=== PATIENT | female | born 1955 | race African-American/Black ===

== ENCOUNTER 2018-03-20 18:16 | Inpatient (IN) ==
--- NOTE | 2018-03-20 18:46 | Emergency Department Note ---
Disposition Clinical Impression: Acute cholecystitis, Thrombocytopenia Hypertension Qualifiers: Hypertension type: unspecified Qualified Code(s): I10 - Essential (primary) hypertension Disposition: Admitted As Inpatient Condition: Good Referrals: Zion Morgan [Primary Care Provider] - Gabrielle Mcdaniel [Family Provider] - Forms: ED Satisfaction Letter, Work/School Release Time of Disposition: 19:35 Abdominal Pain HPI - General Chief Complaint: ED Abdominal Pain Stated Complaint: Infected gallbladder Time Seen by Provider: 03/20/18 18:24 Source: patient, family Mode of arrival: wheelchair Limitations: no limitations Nursing Notes Reviewed: Yes Vital Signs Reviewed: Yes - History of Present Illness HPI Narrative: Patient was told by her primary care provider to come to the emergency department today due to abnormal test. She was recently diagnosed with acute cholecystitis by gallbladder ultrasound dated 03/15/18. She reports right upper quadrant pain not related to oral intake. Associated nausea. No fevers. Pt Subjective Complaint: abdominal pain Onset (ago): week(s) Consistency: intermittent Location: RUQ Pain Severity: severe Pain Scale: 10 Quality: aching Radiation: RUQ Migration to: RUQ Improves with: nothing Worsens with: nothing Associated symptoms: Reports: nausea Treatments prior to arrival: other - Related Data Home Medications Medication Instructions Recorded Confirmed Spironolactone [Aldactone] 25 mg PO DAILY 03/20/18 03/20/18 Tiotropium [Spiriva] 18 mcg IH 0700 03/20/18 03/20/18 Previous Rx's Medication Instructions Recorded Gabapentin [Neurontin] 300 mg PO BID #60 capsule 02/22/18 Allergies Allergy/AdvReac Type Severity Reaction Status Date / Time aspirin Allergy Swelling Verified 03/20/18 18:46 of Lip/Tongue/Throat All systems ED: reviewed and negative except as stated. Constitutional: Reports: as per HPI Eyes: Reports: as per HPI ENT ED: Reports: as per HPI Cardiovascular: Reports: as per HPI Respiratory: Reports: as per HPI Gastrointestinal: Reports: abdominal pain, nausea Genitourinary: Reports: as per HPI Musculoskeletal: Reports: as per HPI Integumentary: Reports: as per HPI Neurological: Reports: as per HPI Psychiatric: Reports: as per HPI Endocrine: Reports: as per HPI Hematological/Lymphatic: Reports: as per HPI Allergic/Immunologic: Reports: as per HPI Abdominal Pain PMH - Past Medical History Medical history: Reports: cancer, CVA, hyperlipidemia, hypertension, TIA Female Surgical History: Reports: appendectomy, breast surgery, hysterectomy - Social History Smoking status: Current every day smoker Alcohol use: Reports: rarely Drug use: Reports: none Physical Exam - General Limitations: no limitations General appearance: alert, in no apparent distress - Head Head exam: atraumatic - Eye Eye exam: Present: normal appearance - ENT ENT exam: normal exam - Neck Neck exam: Present: normal inspection, full ROM - Chest Chest inspection: Present: normal inspection, symmetric chest wall rise - Respiratory Respiratory exam: Present: normal lung sounds bilaterally - Cardiovascular Cardiovascular exam: Present: regular rate, normal rhythm, normal heart sounds - Abdominal Exam Abdominal exam: Present: soft, tenderness, normal bowel sounds Abdominal tenderness: Present: RUQ - Rectal Exam Rectal exam: Present: deferred - Extremities Exam Extremities exam: Present: normal inspection - Neurological Exam Neurological exam: Present: alert, oriented X3, CN II-XII intact - Psychiatric Psychiatric exam: Present: normal affect, normal mood - Skin Skin exam: Present: warm, dry, intact Course Course Narrative: History presents with right upper quadrant pain. She was recently diagnosed sonographically with suspected acute cholecystitis. I did review the transcribed report of her gallbladder ultrasound dated 03/25/18. This study will not be repeated today. I will check labs and discuss with the on-call surgeon - Reevaluation(s) Reevaluation #1: Dr. Brennan accepts admission and requests vit K 5 mg PO x 1 - Consultations Consultation #1: Dr. Garcia, surgery Vital Signs Temperature 98.3 F 03/20/18 18:18 Pulse Rate 94 03/20/18 18:18 Respiratory Rate 18 03/20/18 18:18 Blood Pressure 182/104 03/20/18 18:18 O2 Sat by Pulse Oximetry 96 03/20/18 18:18 Temperature 98.3 F 03/20/18 18:33 Pulse Rate 94 03/20/18 18:33 Respiratory Rate 18 03/20/18 18:33 Blood Pressure 182/104 03/20/18 18:33 O2 Sat by Pulse Oximetry 96 03/20/18 18:33 Oxygen Delivery Oxygen Delivery Room Air Abdominal Pain - Medical Records Medical records reviewed: Yes I reviewed the patient's medical records. - Lab Data Lab results reviewed: Yes I reviewed the patient's lab results. Result diagrams: 03/20/18 18:59 03/20/18 18:59 Lab Results 03/20/18 03/20/18 03/20/18 Range/Units 18:59 18:59 18:59 WBC 3.1 L (4.3-11.1) K/mcL RBC 4.16 (3.82-4.97) M/mcL Hgb 11.7 (11.5-15.4) g/dL Hct 35.9 (35.3-44.9) % MCV 86.3 (83.0-100.0) fL MCH 28.1 (28.0-33.3) pg MCHC 32.6 (31.6-35.5) g/dL RDW 15.2 H (11.5-14.5) % Plt Count 40 L (140-400) K/mcL MPV 11.5 (9.4-12.4) fL Immature Gran % 0.3 (0-4) % Seg Neutrophils % 59.5 % Lymphocytes % 30.9 % Monocytes % 7.4 % Eosinophils % 1.3 % Basophils % 0.6 % Neutrophils # 1.8 (1.6-8.9) K/mcL Lymphocytes # 1.0 (0.6-4.6) K/mcL Monocytes # 0.2 (0.0-1.3) K/mcL Eosinophils # 0.0 (0.0-0.6) K/mcL Basophils # 0.0 (0.0-0.2) K/mcL Immature Plt Fraction 4.5 (1.1-6.1) % PT 16.1 H (9.4-12.1) Seconds INR 1.5 Sodium 140 (136-145) mEq/L Potassium 3.4 L (3.5-5.1) mEq/L Chloride 112 H (98-107) mEq/L Carbon Dioxide 23 (23-29) mEq/L BUN 13 (8-23) mg/dL Creatinine 0.68 (0.60-1.20) mg/dL Est GFR ( Amer) > 60 (> 60) Est GFR (Non-Af Amer) > 60 (> 60) BUN/Creatinine Ratio 19 (6-26) Glucose 186 H (70-105) mg/dL Calculated Osmolality 295 (280-300) Calcium 9.1 (8.6-10.3) mg/dL Total Bilirubin 0.8 (0.3-1.0) mg/dL AST 72 H (13-39) Units/L ALT 81 H (7-52) Units/L Alkaline Phosphatase 99 (34-104) Units/L Serum Total Protein 7.6 (6.4-8.9) g/dL Albumin 3.3 L (3.5-5.7) g/dL Globulin 4.3 H (2.4-3.5) g/dL Albumin/Globulin Ratio 0.8 L (1.1-2.2) Lipase 31 (11-82) Units/L - EKG Data EKG attestation: Yes I reviewed and interpreted this EKG. EKG results narrative: Normal sinus rhythm left ventricular hypertrophy rate 82 DE 165 QRS 85 QT/QTC 364/403
[2018-03-20 19:11] LABS: Hemoglobin 11.7 g/dL (11.5-15.4); Immature Granulocytes % 0.3 % (0-4)
[2018-03-20 19:13] LABS: Basophils % 0.6 %; Eosinophils % 1.3 %; Hematocrit 35.9 % (35.3-44.9); Immature Platelets 4.5 % (1.1-6.1); Lymphocytes % 30.9 %; Mean Corpuscular HGB Conc 32.6 g/dL (31.6-35.5); Mean Corpuscular Hemoglobin 28.1 pg (28.0-33.3); Mean Corpuscular Volume 86.3 fL (83.0-100.0); Mean Platelet Volume 11.5 fL (9.4-12.4); Monocytes # 0.2 K/mcL (0.0-1.3); Monocytes % 7.4 %; Red Blood Count 4.16 M/mcL (3.82-4.97); Red Cell Distribution Width 15.2 % (11.5-14.5); Segmented Neutrophils % 59.5 %
[2018-03-20 19:14] LABS: Neutrophils # 1.8 K/mcL (1.6-8.9); Platelet Count 40 K/mcL (140-400)
[2018-03-20 19:18] LABS: INR 1.5; Prothrombin Time 16.1 Seconds (9.4-12.1)
[2018-03-20 19:30] LABS: Alanine Aminotransferase 81 Units/L (7-52); Albumin 3.3 g/dL (3.5-5.7); Albumin/Globulin Ratio 0.8 (1.1-2.2); Alkaline Phosphatase 99 Units/L (34-104); Aspartate Amino Transferase 72 Units/L (13-39); BUN/Creatinine Ratio 19 (6-26); Bilirubin,Total 0.8 mg/dL (0.3-1.0); Blood Urea Nitrogen 13 mg/dL (8-23); Calcium 9.1 mg/dL (8.6-10.3); Carbon Dioxide 23 mEq/L (23-29); Chloride 112 mEq/L (98-107); Globulin 4.3 g/dL (2.4-3.5); Glucose 186 mg/dL (70-105); Lipase 31 Units/L (11-82); Osmolality,Calculated 295 (280-300); Potassium 3.4 mEq/L (3.5-5.1); Sodium 140 mEq/L (136-145); Total Protein 7.6 g/dL (6.4-8.9); eGFR For African Americans > 60 (> 60); eGFR For Non-African Americans > 60 (> 60)
[2018-03-20] MEDS ORDERED: *HR* Phytonadione 5 MG TABLET PO ONE (19:55)
[2018-03-20] MEDS ORDERED: *HR* FentaNYL (PF) 100 MCG/2 ML VIAL IVP ONE (19:56)
--- NOTE | 2018-03-20 20:14 | Internal Med History&Physical ---
Date of Encounter: 03/21/18 Time of Encounter: 20:20 Internal Medicine - H&P: HPI Chief complaint: abdominal pain Admitted From: Home Plans for Post Hospital Care: Home History of present illness: Ms. Brooke is a 62 year old female with a past medical history of CVA, hyperlipidemia, hypertension, breast cancer, cervical cancer, cirrhosis secondary to hepatitis C, and thrombocytopenia who presented to the ED from her PCP for abnormal testing with RUQ pain. Pain is described as intermittent and worsened when she takes a deep breath and inserting foods make it worse. Patient has had a subjective fever with chills for 2 weeks. Admits to melena and hematochezia for more than 5 years. Last colonoscopy 4 years ago. She had a gallbladder ultrasound on 03/15/18 which showed acute cholecystitis. In the ED, US on 03/15/18 was reviewed and patient was given Fentanyl and Vit K as patient is thrombocytopenic and going to surgery. Dr. Garcia was called. Admitted to the hospitalist to the floor for acute cholecystitis. Past Med Surg Social Fam HX - Past Medical History Medical history: cancer (breast and cervical ), COPD, CVA, hepatitis (Hep C), hyperlipidemia, hypertension, liver disease (Hepatitis C and cirrhosis), TIA, other (splenomegaly ) Additional medical history: breast ca - Past Surgical History Surgical History: hysterectomy, other Additional surgical history: left masectomy, lung surgeries (unsure type) - Social History Smoking Status: Current every day smoker Smokeless Tobacco Status: No Alcohol use: rarely Drug use: none Internal Medicine - H&P: Meds Gabapentin [Neurontin] 300 mg PO BID #60 capsule 02/22/18 [Rx] Spironolactone [Aldactone] 25 mg PO DAILY 03/20/18 [History] Tiotropium [Spiriva] 18 mcg IH 0700 03/20/18 [History] 3 Allergy/AdvReac Type Severity Reaction Status Date / Time aspirin Allergy Swelling Verified 03/20/18 18:46 of Lip/Tongue/Throat All Systems PM: A 10-system review of systems was performed and is negative for pertinent findings except as documented above in the HPI. - Constitutional Vitals: Temp Pulse Resp BP Pulse Ox 98.3 F 94 18 182/104 96 03/20/18 18:33 03/20/18 18:33 03/20/18 18:33 03/20/18 18:33 03/20/18 18:33 Exam: Constitutional: Alert, in no acute distress Head: Normocephalic, atraumatic Heart: Normal, regular rate and rhythm, no murmurs Lungs: Clear to auscultation, no wheezes, rales, or rhonchi Abdomen: RUQ and LUQ tenderness, + goodwin's sign, abdominal distention, Soft, bowel sounds present and normal, no guarding or rigidity. Extremities: Left thigh with concavity on distal thigh 2/2 to benign tumor removal, + clubbing, palmar erythema, no edema, radial pulse +2/4, capillary refill <2sec. Skin: Skin warm and dry, no lesions, no rashes, no jaundice Neurologic strength 5/5 in all extremitites Psych: Cooperative with exam, good eye contact, cognitive function intact, speech clear, thought process logical, and goal directed Internal Med - H&P Results - Labs CBC & Chem 7: 03/20/18 18:59 03/20/18 18:59 Labs: Short CBC 03/20/18 Range/Units 18:59 WBC 3.1 L (4.3-11.1) K/mcL Hgb 11.7 (11.5-15.4) g/dL Hct 35.9 (35.3-44.9) % Plt Count 40 L (140-400) K/mcL Neutrophils # 1.8 (1.6-8.9) K/mcL BMP 03/20/18 18:59 Sodium 140 Potassium 3.4 L Chloride 112 H Carbon Dioxide 23 BUN 13 Creatinine 0.68 Glucose 186 H Calcium 9.1 Liver Function 03/20/18 Range/Units 18:59 Total Bilirubin 0.8 (0.3-1.0) mg/dL AST 72 H (13-39) Units/L ALT 81 H (7-52) Units/L Alkaline Phosphatase 99 (34-104) Units/L Albumin 3.3 L (3.5-5.7) g/dL - Assessment and plan (1) Acute cholecystitis Current Visit: Yes Status: Acute Assessment and plan: Right upper quadrant abdominal pain with associated fever and nausea. Physical exam shows positive Goodwin sign. 03/15/18 ultrasound shows acute cholecystitis. Surgery was consulted and will perform cholecystectomy in the morning. Plan: - Antibiotics: begin Zosyn - surgery consulted, cholecystectomy in the AM - Vit K given INR 1.5, will repeat in the AM - Diet: NPO after midnight - Will transfuse platelets tonight - IV fluids 100ml/hr (2) Thrombocytopenia Current Visit: Yes Status: Acute Assessment and plan: 11/09 to cirrhosis and splenomegaly Plan: - Vitamin K given - transfuse platelets at 5AM (3) Leukopenia Current Visit: Yes Status: Chronic Assessment and plan: Has been present since at least 12/23. WBCs = 3.1. Qualifiers: Leukopenia type: lymphocytopenia Qualified Code(s): D72.810 - Lymphocytopenia (4) Hypertension Current Visit: Yes Status: Chronic Assessment and plan: Will continue home meds. Qualifiers: Hypertension type: essential hypertension Qualified Code(s): I10 - Essential (primary) hypertension (5) Hepatitis C Current Visit: Yes Status: Acute Assessment and plan: Unsure if acute or chronic as patient has not drawn labs from PCP for Hep C. CT abd and pelvis 12/23 showed liver cirrhosis. Transaminitis due to hepatitis C. Qualifiers: Viral hepatitis chronicity: unspecified Hepatic coma status: without hepatic coma Qualified Code(s): B19.20 - Unspecified viral hepatitis C without hepatic coma (6) DVT prophylaxis Current Visit: Yes Status: Acute Assessment and plan: ICDs as patient's platelet count is 40. - Time Spent With Patient Total time spent is greater than 50% in coordination of care (as documented) at patient's floor/unit and/or counseling patient:
[2018-03-20] MEDS ORDERED: Naloxone 0.4 MG/ML INJ IVP PRN (20:15)
[2018-03-20] MEDS ORDERED: Acetaminophen 325 MG TABLET PO PRN (20:17)
--- NOTE | 2018-03-20 20:45 | Event Note ---
Date of Encounter: 03/20/18 Time of Encounter: 20:37 Patient was seen and examined. I agree with the H&P as written by the Resident Physician. Briefly, patient with h/o liver cirrhosis suspected to be from Hep C, HTN been dealing with abdominal pain for a couple of months of so. Went to her PCP and had an US done a few days ago with signs of acute cholecystitis. PCP called her to go to the ED. In the ED, she was hypertensive. Labs showed thrombocytopenia which she has a history of, mildly elevated LFTs. GEN: NAD CVS: RRR. S1, S2, No m/r/g RESP: CTAB ABD: Soft, right upper quadrant tenderness, ND, +BS EXT: No edema. 2+ DP. No rashes NEURO: Nonfocal Admit to hospitalist Pain control and antiemetics Gentle hydration Nothing by mouth after midnight Surgery planned for tomorrow IV Zosyn EKG for preoperative since. Patient does not need further workup for cardiac clearance Platelets ordered for tomorrow morning Resume home antihypertensives and add IV hydralazine when necessary SCDs
[2018-03-20] MEDS ORDERED: Ondansetron 4 MG/2 ML VIAL IVP PRN (21:09)
[2018-03-20] MEDS ORDERED: *HR* Promethazine 25 MG/ML VIAL IVP PRN (21:09)
[2018-03-20] MEDS ORDERED: Potassium Chloride Elixir 20 MEQ/15 ML UDC PO ONE (21:13)
[2018-03-20] MEDS: *HR* HYDROcodone/Acet 5/325 mg TABLET PO PRN (23:03)
[2018-03-20] MEDS: Piperacillin/Tazobactam 3.375 GM in 0.9 % Sodium Chloride Mini Bag 100 ML IVPB SCH (23:04)
[2018-03-20 23:40] LABS: Hepatitis A Antibody IgM Nonreactive (Nonreactive); Hepatitis B Core IgM Nonreactive (Nonreactive); Hepatitis B Surface Antigen Nonreactive (Nonreactive)
[2018-03-20 23:47] LABS: Hepatitis C Virus Antibody Reactive (Nonreactive)
[2018-03-21 01:18] LABS: Hematocrit 33.6 % (35.3-44.9); Hemoglobin 10.9 g/dL (11.5-15.4); Immature Platelets 5.4 % (1.1-6.1); Mean Corpuscular HGB Conc 32.4 g/dL (31.6-35.5); Mean Corpuscular Hemoglobin 27.9 pg (28.0-33.3); Mean Corpuscular Volume 85.9 fL (83.0-100.0); Mean Platelet Volume 11.5 fL (9.4-12.4); Red Blood Count 3.91 M/mcL (3.82-4.97); Red Cell Distribution Width 15.4 % (11.5-14.5)
[2018-03-21 01:25] LABS: INR 1.5; Prothrombin Time 16.2 Seconds (9.4-12.1)
[2018-03-21] MEDS: 0.9 % Sodium Chloride 1,000 ML IVC SCH ×2 (01:29→19:50)
[2018-03-21 01:35] LABS: BUN/Creatinine Ratio 18 (6-26); Blood Urea Nitrogen 13 mg/dL (8-23); Calcium 8.7 mg/dL (8.6-10.3); Carbon Dioxide 25 mEq/L (23-29); Chloride 110 mEq/L (98-107); Glucose 143 mg/dL (70-105); Magnesium 1.9 mg/dL (1.6-2.6); Osmolality,Calculated 289 (280-300); Phosphorous 3.5 mg/dL (2.7-4.5); Potassium 4.2 mEq/L (3.5-5.1); Sodium 138 mEq/L (136-145); eGFR For African Americans > 60 (> 60); eGFR For Non-African Americans > 60 (> 60)
[2018-03-21 04:22] LABS: Alanine Aminotransferase 72 Units/L (7-52); Albumin 3.1 g/dL (3.5-5.7); Albumin/Globulin Ratio 0.8 (1.1-2.2); Alkaline Phosphatase 86 Units/L (34-104); Aspartate Amino Transferase 63 Units/L (13-39); Bilirubin,Direct 0.1 mg/dL (0.0-0.2); Bilirubin,Indirect 0.8 mg/dL (0.0-1.2); Bilirubin,Total 0.9 mg/dL (0.3-1.0); Globulin 3.8 g/dL (2.4-3.5); Total Protein 6.9 g/dL (6.4-8.9)
[2018-03-21] MEDS ORDERED: 0.9 % Sodium Chloride 250 ML ONE ×2 (04:58→12:00)
[2018-03-21] MEDS: Piperacillin/Tazobactam 3.375 GM in 0.9 % Sodium Chloride Mini Bag 100 ML IVPB SCH ×2 (06:51→19:51)
[2018-03-21] MEDS ORDERED: Tiotropium 18 MCG inhalation IH SCH (07:00)
[2018-03-21] MEDS: *HR* HYDROcodone/Acet 5/325 mg TABLET PO PRN (08:27)
--- NOTE | 2018-03-21 08:48 | General Surgery Consult Note ---
Date of Encounter: 03/21/18 Time of Encounter: 08:47 Assessment and Plan (1) Acute cholecystitis Current Visit: Yes Status: Acute Her hospital course has included An ultrasound of the right upper quadrant revealed gallbladder wall thickening, Pericholecystic fluid, and a positive sonographic Farias sign. Laboratory studies which revealed chronic thrombocytopenia (platelets at 40 4S/P transfusion of platelets). She is been treated with Zosyn. She reports that at this point her symptoms are stable but "still there." Her history and physical are consistent with acute cholecystitis. We will plan for surgical intervention, laparoscopic cholecystectomy with intraoperative cholangiogram, and the next 24 to 48 hours. Recommendations, risks, and benefits have been reviewed with the patient and she is agreeable to proceed. A signed copy of her consent is placed on the hard chart. NPO continue Zosyn supportive care and discomfort management total IV fluids per primary team (2) Thrombocytopenia Current Visit: Yes Status: Acute Chronic, management per primary team, History of Present Illness Consult date: 03/20/18 (Dr. Mark Garcia) Reason for consult: abdominal pain Requesting physician: Mark Yan History of present illness: Ms. Brooke is a 62-year-old -Wel[place] female with a significant past medical history for history of CVA, hyperlipidemia, hypertension, breast and cervical cancer, cirrhosis of the liver secondary to hepatitis C, and chronic thrombocytopenia. She reports having nausea, right upper quadrant discomfort, fever and chills for 2 weeks, reports dark and bright red blood for more than 5 years and that her last colonoscopy was 4 years ago. She states that taking a deep breath or eating food makes her discomfort worse. She denies increase in heartburn or vomiting. Her hospital course has included An ultrasound of the right upper quadrant revealed gallbladder wall thickening, Pericholecystic fluid, and a positive sonographic Farias sign. Laboratory studies which revealed chronic thrombocytopenia (platelets at 40 4S/P transfusion of platelets). She is been treated with Zosyn. She reports that at this point her symptoms are stable but "still there." Past Med Surg Social Fam HX - Past Medical History Medical history: cancer (breast and cervical ), COPD, CVA, hepatitis (Hep C), hyperlipidemia, hypertension, liver disease (Hepatitis C and cirrhosis), TIA, other (splenomegaly ) Additional medical history: breast ca Psychiatric history: no psych history - Past Surgical History Surgical History: hysterectomy, other Additional surgical history: left masectomy, lung surgeries (unsure type) - Social History Smoking Status: Current every day smoker Packs per day: 0.25 Smokeless Tobacco Status: No Alcohol use: rarely Drug use: none Medications and Allergies Gabapentin [Neurontin] 300 mg PO BID #60 capsule 02/22/18 [Rx] Spironolactone [Aldactone] 25 mg PO DAILY 03/20/18 [History] Tiotropium [Spiriva] 18 mcg IH 0700 03/20/18 [History] 3 Allergy/AdvReac Type Severity Reaction Status Date / Time aspirin Allergy Swelling Verified 03/20/18 18:46 of Lip/Tongue/Throat Review of Systems All systems PM: reviewed and no additional remarkable complaints except as stated All systems PM: The remainder of the systems were reviewed and are negative General Surgery Exam Initial Vital Signs Temp Pulse Resp BP Pulse Ox 98.3 F 94 18 182/104 96 03/20/18 18:18 03/20/18 18:18 03/20/18 18:18 03/20/18 18:18 03/20/18 18:18 - General physical appearance well developed, well nourished, no distress - Eyes normal ocular movement - ENT normal mucosa, atraumatic, normocephalic - Neck no venous distension - Respiratory normal expansion, normal respiratory effort, clear to percussion, clear to auscultation - Cardiovascular Cardiovascular exam: Present: RRR, 15, 16 - Abdomen Abdomen general surgery: Present: soft, tender Abdominal Tenderness: Present: RUQ Hernia: Present: none - Integumentary Integumentary general surgery: Present: warm and dry, no abnormal pigmentation - Neurologic Present: CN 2-12 grossly intact, normal coordination, normal sensation - Musculoskeletal Present: normal gait, normal posture - Psychiatric Psychiatric general surgery: Present: A&Ox3, appropriate, oriented to person, oriented to place, oriented to time, speech is normal, memory intact Exam Initial Vital Signs Temp Pulse Resp BP Pulse Ox 98.3 F 94 18 182/104 96 03/20/18 18:18 03/20/18 18:18 03/20/18 18:18 03/20/18 18:18 03/20/18 18:18 Results - Labs 03/21/18 09:35 03/21/18 01:03 Abnormal lab results WBC 3.2 K/mcL (4.3-11.1) L 03/21/18 01:03 Hgb 10.9 g/dL (11.5-15.4) L 03/21/18 01:03 Hct 33.6 % (35.3-44.9) L 03/21/18 01:03 MCH 27.9 pg (28.0-33.3) L 03/21/18 01:03 RDW 15.4 % (11.5-14.5) H 03/21/18 01:03 Plt Count 41 K/mcL (140-400) L 03/21/18 01:03 PT 16.2 Seconds (9.4-12.1) H 03/21/18 01:03 Chloride 110 mEq/L (98-107) H 03/21/18 01:03 Glucose 143 mg/dL (70-105) H 03/21/18 01:03 POC Glucose 104 mg/dL (70-99) H 03/21/18 05:15 AST 63 Units/L (13-39) H 03/21/18 01:03 ALT 72 Units/L (7-52) H 03/21/18 01:03 Albumin 3.1 g/dL (3.5-5.7) L 03/21/18 01:03 Globulin 3.8 g/dL (2.4-3.5) H 03/21/18 01:03 Albumin/Globulin Ratio 0.8 (1.1-2.2) L 03/21/18 01:03 Hepatitis C Ab Screen Reactive (Nonreactive) H 03/20/18 21:33 Diabetes panel 03/21/18 Range/Units 01:03 Sodium 138 (136-145) mEq/L Potassium 4.2 (3.5-5.1) mEq/L Chloride 110 H (98-107) mEq/L Carbon Dioxide 25 (23-29) mEq/L BUN 13 (8-23) mg/dL Creatinine 0.72 (0.60-1.20) mg/dL Glucose 143 H (70-105) mg/dL Calcium 8.7 (8.6-10.3) mg/dL AST 63 H (13-39) Units/L ALT 72 H (7-52) Units/L Alkaline Phosphatase 86 (34-104) Units/L Albumin 3.1 L (3.5-5.7) g/dL Calcium panel 03/21/18 Range/Units 01:03 Calcium 8.7 (8.6-10.3) mg/dL Phosphorus 3.5 (2.7-4.5) mg/dL Albumin 3.1 L (3.5-5.7) g/dL Pituitary panel 03/21/18 Range/Units 01:03 Sodium 138 (136-145) mEq/L Potassium 4.2 (3.5-5.1) mEq/L Chloride 110 H (98-107) mEq/L Carbon Dioxide 25 (23-29) mEq/L BUN 13 (8-23) mg/dL Creatinine 0.72 (0.60-1.20) mg/dL Glucose 143 H (70-105) mg/dL Calcium 8.7 (8.6-10.3) mg/dL Adrenal panel 03/21/18 Range/Units 01:03 Sodium 138 (136-145) mEq/L Potassium 4.2 (3.5-5.1) mEq/L Chloride 110 H (98-107) mEq/L Carbon Dioxide 25 (23-29) mEq/L BUN 13 (8-23) mg/dL Creatinine 0.72 (0.60-1.20) mg/dL Glucose 143 H (70-105) mg/dL Calcium 8.7 (8.6-10.3) mg/dL Total Bilirubin 0.9 (0.3-1.0) mg/dL AST 63 H (13-39) Units/L ALT 72 H (7-52) Units/L Alkaline Phosphatase 86 (34-104) Units/L Albumin 3.1 L (3.5-5.7) g/dL All other labs normal. - Imaging US - abdomen: report reviewed Consult Discharge Plan - Plan Referrals: Zion Morgan [Primary Care Provider] - Gabrielle Mcdaniel [Family Provider] -
[2018-03-21] MEDS ORDERED: Gabapentin 300 MG CAPSULE PO SCH (09:00)
[2018-03-21] MEDS ORDERED: Spironolactone 25 MG TABLET PO SCH (09:00)
--- NOTE | 2018-03-21 09:45 | Internal Med Progress Note ---
<Johnny Palumbo - Last Filed: 03/21/18 11:01> Date of Encounter: 03/21/18 Time of Encounter: 08:35 - Assessment and plan (1) Acute cholecystitis Current Visit: Yes Status: Acute Assessment and plan: Right upper quadrant abdominal pain with associated fever and nausea. Physical exam shows positive Farias sign. 03/15/18 ultrasound shows acute cholecystitis. Surgery was consulted and will perform cholecystectomy. Plan: - Antibiotics: continue Zosyn - surgery consulted, cholecystectomy planned for today if platelets improve. Ordered 2nd unit to be given today. - Vit K given INR 1.5. - Diet: NPO - IV fluids 100ml/hr (2) Thrombocytopenia Current Visit: Yes Status: Acute Assessment and plan: 2/ to cirrhosis and splenomegaly Overnight Vitamin K given and transfused 1 unit of platelets. Repeat Plt count increased from 40,000 to 44,000. Goal of 50,000 for surgery. (3) Hypertension Current Visit: Yes Status: Chronic Assessment and plan: Will continue home meds. Qualifiers: Hypertension type: essential hypertension Qualified Code(s): I10 - Essential (primary) hypertension (4) Hepatitis C Current Visit: Yes Status: Acute Assessment and plan: Unsure if acute or chronic as patient has not drawn labs from PCP for Hep C. CT abd and pelvis 12/23 showed liver cirrhosis. Transaminitis due to hepatitis C. Qualifiers: Viral hepatitis chronicity: unspecified Hepatic coma status: without hepatic coma Qualified Code(s): B19.20 - Unspecified viral hepatitis C without hepatic coma (5) Leukopenia Current Visit: Yes Status: Chronic Assessment and plan: Has been present since at least 12/23. WBCs = 3.1->2.5 Qualifiers: Leukopenia type: lymphocytopenia Qualified Code(s): D72.810 - Lymphocytopenia (6) DVT prophylaxis Current Visit: Yes Status: Acute Assessment and plan: ICDs as patient's platelet count is in 40s. (7) Tobacco use Current Visit: Yes Status: Acute Assessment and plan: Patient would like to try a nicotine patch. - Time Spent With Patient Total time spent is greater than 50% in coordination of care (as documented) at patient's floor/unit and/or counseling patient: - Subjective Interval history: Patient seen and examined lying in bed, notes she is in significant discomfort, RN present and had just given patient pain medication. Patient notes worsening RUQ pain for the past 2 of months. She admits swelling of her stomach and chest , states she was not able to eat the day prior to admission. Ms. Brooke's platelet count was low this morning at 44, this is after 1 unit of platelets. - Constitutional Vitals: Temp Pulse Resp BP Pulse Ox 97.8 F 70 14 136/78 97 03/21/18 06:50 03/21/18 06:50 03/21/18 06:50 03/21/18 06:50 03/21/18 06:50 General appearance: Present: cooperative, mild distress, answers questions appropriately - Head Head exam: Present: atraumatic, normal inspection, normocephalic - Eye Eye exam: Present: EOMI, normal appearance - ENT ENT exam: Present: mucous membranes dry - Neck Neck exam general surgery: Present: full ROM, normal inspection - Respiratory Respiratory exam: Present: decreased breath sounds, CTAB. Absent: respiratory distress, wheezes - Cardiovascular Cardiovascular exam: Present: RRR, +S1, +S2. Absent: gallop, rubs - GI/Abdominal GI/Abdominal exam: Present: soft, tenderness (diffuse pain, worse in RUQ/right flank). Absent: distended, guarding - Neurological Exam Neurological exam: Present: alert, oriented X3, no focal deficits. Absent: speech deficit - Skin Skin exam: Present: dry, intact, normal color, warm Internal Medicine: Result - Labs CBC & Chem 7: 03/21/18 09:35 03/21/18 01:03 Labs: Short CBC 03/21/18 Range/Units 01:03 WBC 3.2 L (4.3-11.1) K/mcL Hgb 10.9 L (11.5-15.4) g/dL Hct 33.6 L (35.3-44.9) % Plt Count 41 L (140-400) K/mcL BMP 03/21/18 01:03 Sodium 138 Potassium 4.2 Chloride 110 H Carbon Dioxide 25 BUN 13 Creatinine 0.72 Glucose 143 H Calcium 8.7 Liver Function 03/21/18 Range/Units 01:03 Total Bilirubin 0.9 (0.3-1.0) mg/dL Direct Bilirubin 0.1 (0.0-0.2) mg/dL AST 63 H (13-39) Units/L ALT 72 H (7-52) Units/L Alkaline Phosphatase 86 (34-104) Units/L Albumin 3.1 L (3.5-5.7) g/dL - ABG Interpretation ABG results: PT/INR, D-dimer PT 16.2 Seconds (9.4-12.1) H 03/21/18 01:03 - VTE Documentation of Mechanical Device: Intermittent pneumatic compression device Consult Discharge Plan - Plan Referrals: Zion Morgan [Primary Care Provider] - Gabrielle Mcdaniel [Family Provider] - <Regis Mari - Last Filed: 03/21/18 12:40> Date of Encounter: 03/21/18 - Assessment and plan (1) Acute cholecystitis Current Visit: Yes Status: Acute (2) Thrombocytopenia Current Visit: Yes Status: Acute (3) Hypertension Current Visit: Yes Status: Chronic Qualifiers: Hypertension type: essential hypertension Qualified Code(s): I10 - Essential (primary) hypertension (4) Hepatitis C Current Visit: Yes Status: Acute Qualifiers: Viral hepatitis chronicity: unspecified Hepatic coma status: without hepatic coma Qualified Code(s): B19.20 - Unspecified viral hepatitis C without hepatic coma (5) DVT prophylaxis Current Visit: Yes Status: Acute (6) Leukopenia Current Visit: Yes Status: Chronic Qualifiers: Leukopenia type: lymphocytopenia Qualified Code(s): D72.810 - Lymphocytopenia (7) Tobacco use Current Visit: Yes Status: Acute - Time Spent With Patient Total time spent is greater than 50% in coordination of care (as documented) at patient's floor/unit and/or counseling patient: - Constitutional Vitals: Temp Pulse Resp BP Pulse Ox 98.1 F 65 16 170/78 96 03/21/18 12:12 03/21/18 12:12 03/21/18 12:12 03/21/18 12:12 03/21/18 12:12 Internal Medicine: Result - Labs CBC & Chem 7: 03/21/18 09:35 03/21/18 01:03 Labs: Short CBC 03/21/18 03/21/18 Range/Units 01:03 09:35 WBC 3.2 L 2.5 L (4.3-11.1) K/mcL Hgb 10.9 L 10.4 L (11.5-15.4) g/dL Hct 33.6 L 32.4 L (35.3-44.9) % Plt Count 41 L 44 L (140-400) K/mcL Neutrophils # 1.3 L (1.6-8.9) K/mcL BMP 03/21/18 01:03 Sodium 138 Potassium 4.2 Chloride 110 H Carbon Dioxide 25 BUN 13 Creatinine 0.72 Glucose 143 H Calcium 8.7 Liver Function 03/21/18 Range/Units 01:03 Total Bilirubin 0.9 (0.3-1.0) mg/dL Direct Bilirubin 0.1 (0.0-0.2) mg/dL AST 63 H (13-39) Units/L ALT 72 H (7-52) Units/L Alkaline Phosphatase 86 (34-104) Units/L Albumin 3.1 L (3.5-5.7) g/dL - ABG Interpretation ABG results: PT/INR, D-dimer PT 16.2 Seconds (9.4-12.1) H 03/21/18 01:03 - Attending Attestation I examined this patient and my medical decision-making was reviewed with the Resident Physician Dr. Tatum. I agree with the documented findings, disposition and treatment plan as described except to the extent set forth below. Ms. Brooke is a 62 year old female with a past medical history of CVA, hyperlipidemia, hypertension, breast cancer, cervical cancer, cirrhosis secondary to hepatitis C, and thrombocytopenia who presented to the ED from her PCP With abnormal RUQ US showed cholecystitis. Pt was admitted in the hospital and started her on empirical abz Zosyn.. Her pain tolerable with meds. Gen: A, A, O x 3 chest: Diminished BS b/l Heart: S1S2+ RRR Abd: Soft, RUQ Tenderness a/p 1. Acute cholecystitis scheduled for surgery today Cont broad spec abx Zosyn IV fluids 2.Chronic throbocytopenia Due to Cirrhosis of liver Cont platelet transfusion goal to keep numbers > 50
[2018-03-21 10:15] LABS: Basophils % 0.8 %; Mean Corpuscular HGB Conc 32.1 g/dL (31.6-35.5)
[2018-03-21 10:17] LABS: Eosinophils # 0.1 K/mcL (0.0-0.6); Eosinophils % 2.4 %; Hematocrit 32.4 % (35.3-44.9); Hemoglobin 10.4 g/dL (11.5-15.4); Immature Platelets 6.1 % (1.1-6.1); Lymphocytes # 0.9 K/mcL (0.6-4.6); Lymphocytes % 35.5 %; Mean Corpuscular Hemoglobin 27.5 pg (28.0-33.3); Mean Corpuscular Volume 85.7 fL (83.0-100.0); Mean Platelet Volume 11.8 fL (9.4-12.4); Monocytes # 0.2 K/mcL (0.0-1.3); Monocytes % 8.6 %; Neutrophils # 1.3 K/mcL (1.6-8.9); Platelet Count 44 K/mcL (140-400); Red Blood Count 3.78 M/mcL (3.82-4.97); Red Cell Distribution Width 15.4 % (11.5-14.5); Segmented Neutrophils % 52.7 %
[2018-03-21] MEDS ORDERED: Nicotine 21 MG PATCH.TD24 TD SCH (11:30)
[2018-03-21 12:36] LABS: Mean Corpuscular Volume 86.9 fL (83.0-100.0); Red Cell Distribution Width 15.4 % (11.5-14.5)
[2018-03-21 12:38] LABS: Hematocrit 33.9 % (35.3-44.9); Immature Platelets 4.8 % (1.1-6.1); Mean Corpuscular HGB Conc 32.4 g/dL (31.6-35.5); Mean Corpuscular Hemoglobin 28.2 pg (28.0-33.3); Mean Platelet Volume 11.2 fL (9.4-12.4); Red Blood Count 3.9 M/mcL (3.82-4.97)
[2018-03-21] MEDS ORDERED: Isovue-300 50 ML VIAL IVP ONE (14:48)
[2018-03-21] MEDS ORDERED: *HR* Succinylcholine 200 MG/10 ML VIAL IVP ONE (14:52)
[2018-03-21] MEDS ORDERED: Lidocaine -MPF 2% 2 ML VIAL ONE (14:52)
[2018-03-21] MEDS ORDERED: Lidocaine -MPF 4% 5 ML AMPUL ONE (14:52)
[2018-03-21] MEDS ORDERED: *HR* Midazolam HCl 2 MG/2 ML VIAL ONE (14:52)
[2018-03-21] MEDS ORDERED: *HR* Rocuronium Bromide 50 MG/5 ML VIAL ONE (14:52)
[2018-03-21] MEDS ORDERED: Ondansetron 4 MG/2 ML VIAL ONE (14:52)
[2018-03-21] MEDS ORDERED: Neostigmine Methylsulfate 3 MG/3 ML SYRINGE ONE (14:52)
[2018-03-21] MEDS ORDERED: Dexamethasone 4 MG/ML VIAL ONE (14:52)
[2018-03-21] MEDS ORDERED: *HR* Propofol 200 MG/20 ML VIAL IVP ONE (14:52)
[2018-03-21] MEDS ORDERED: *HR* FentaNYL (PF) 100 MCG/2 ML VIAL ONE (14:52)
--- NOTE | 2018-03-21 14:56 | Anesthesia Evaluation PreOp ---
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: CVA (no residual), TIA Other Medical History: Hepatic (hepatitis C, cirrhosis), Other (breast CA S/P left mastectomy) Anesthesia History: No Prior Anesthetic Complications, Past Anesthesia ( hysterectomy) Alcohol Use: rarely Drug use: none Medications and Allergies Gabapentin [Neurontin] 300 mg PO BID #60 capsule 02/22/18 [Rx] Spironolactone [Aldactone] 25 mg PO DAILY 03/20/18 [History] Tiotropium [Spiriva] 18 mcg IH 0700 03/20/18 [History] 3 Allergy/AdvReac Type Severity Reaction Status Date / Time aspirin Allergy Swelling Verified 03/20/18 18:46 of Lip/Tongue/Throat - Meds/Allergy Pre-op Review Medications Reviewed: Yes Allergies Reviewed: Yes Beta Blockers on Current Med List: No Anesthesia Results - Labs 03/21/18 12:06 03/21/18 01:03 - Imaging EKG: report reviewed (02/22/2018 SINUS RHYTHM MINIMAL VOLTAGE CRITERIA FOR LVH, CONSIDER NORMAL VARIANT [MEETS CRITERIA IN ONE OF: R(aVL), S(V1), R(V5), R(V5/ V6)+S(V1)] WARNING: DATA QUALITY MAY AFFECT INTERPRETATION) Anesthesia Exam Vital Signs/O2 Sat/Glucose, Most Recent Temp Pulse Resp BP Pulse Ox 98.1 F 65 16 170/78 96 03/21/18 12:12 03/21/18 12:12 03/21/18 12:12 03/21/18 12:12 03/21/18 12:12 Blood Glucose* 91 Height: 5''9''/1.75m Weight: 194 lbs/88.2 kg NPO (# of Hours): 8 Pain Scale: 0 Pain Scale Used: Numeric (1 - 10) - HEENT Pupil (Motor): EOMI Mallampati: II Teeth: Normal Denture Type: Upper: Complete, Lower: Partial Oral Opening: Greater than 3 - VAULT TELLER LOC: Oriented VAULT TELLER Motor: Normal RUE, Normal LUE, Normal RLE, Normal LLE, Normal Face VAULT TELLER Sensory: Normal: RUE, LUE, RLE, LLE, Face - Cardiac Rhythm: Regular Murmur: None - Pulmonary Breath Sounds: bilateral Clear Respiratory Effort: Symmetrical Anesthesia Assess/Plan ASA Score: 3 Modified Makenzie Scale for Level of Consciousness: Cooperative, oriented, and tranquil Anesthetic Plan: General Monitoring Plan: Standard Monitors Recovery Plan: PACU
[2018-03-21] MEDS ORDERED: *HR* Promethazine 25 MG/ML VIAL IVP PRN ×2 (16:01→18:04)
[2018-03-21] MEDS ORDERED: *HR* Labetalol 20 MG/4 ML SYRINGE IVP PRN (16:01)
[2018-03-21] MEDS ORDERED: Albuterol 2.5 MG/3 ML NEBULIZER IH ONE ×2 (16:01→18:04)
[2018-03-21] MEDS: *HR* HYDROmorphone (PF) 1 MG/ML SYRINGE IVP PRN ×2 (16:37→16:53)
--- NOTE | 2018-03-21 17:20 | Anesthesia Evaluation Post Op ---
Date of Encounter: 03/21/18 Time of Encounter: 17:19 - Vital Signs Vital Signs: Vital Signs/O2 Sat/Glucose, Most Recent Temp Pulse Resp BP Pulse Ox 97.0 F L 71 16 149/94 97 03/21/18 17:15 03/21/18 17:15 03/21/18 17:15 03/21/18 17:15 03/21/18 17:15 Blood Glucose* 91 - Lungs Lungs: Clear Ascult./Percussion - Airway Airway: Non-obstructed - Cardiovascular Regular Rate, Baseline Rhythm - Mental Status Mental Status: Asleep with brisk response to light stimulation - Pain Pain Scale: 4 Pain Scale used: Numeric (1 - 10) - Nausea Vomiting Nausea Vomiting: Not Present - Hydration Hydration: Ice chips Notes: 03/21/18 17:19 naa - Discharge PostOp Status: Transfer Patient to floor
[2018-03-21 17:56] LABS: Eosinophils % 1.4 %; Red Cell Distribution Width 15.3 % (11.5-14.5)
[2018-03-21 17:59] LABS: Basophils % 0.6 %; Eosinophils # 0.1 K/mcL (0.0-0.6); Hematocrit 35.1 % (35.3-44.9); Hemoglobin 11.2 g/dL (11.5-15.4); Immature Granulocytes % 0.3 % (0-4); Immature Platelets 6.4 % (1.1-6.1); Lymphocytes # 0.7 K/mcL (0.6-4.6); Lymphocytes % 19.7 %; Mean Corpuscular HGB Conc 31.9 g/dL (31.6-35.5); Mean Corpuscular Volume 87.8 fL (83.0-100.0); Mean Platelet Volume 12.2 fL (9.4-12.4); Monocytes # 0.2 K/mcL (0.0-1.3); Monocytes % 4.3 %; Neutrophils # 2.6 K/mcL (1.6-8.9); Segmented Neutrophils % 73.7 %
[2018-03-21 18:02] LABS: Platelet Count 39 K/mcL (140-400)
[2018-03-21] MEDS ORDERED: Ondansetron 4 MG/2 ML VIAL IVP PRN (18:04)
[2018-03-21] MEDS ORDERED: Naloxone 0.4 MG/ML INJ IVP PRN (18:04)
[2018-03-21] MEDS: OXYCODONE Oral CONC 10 MG/0.5 ML ORAL.SYG SL PRN (18:53)
[2018-03-21] MEDS: Gabapentin 300 MG CAPSULE PO SCH (21:07)
[2018-03-22] MEDS: OXYCODONE Oral CONC 10 MG/0.5 ML ORAL.SYG SL PRN ×4 (00:02→22:30)
[2018-03-22] MEDS: Piperacillin/Tazobactam 3.375 GM in 0.9 % Sodium Chloride Mini Bag 100 ML IVPB SCH ×4 (03:31→22:50)
[2018-03-22] MEDS: 0.9 % Sodium Chloride 1,000 ML IVC SCH ×2 (05:44→22:51)
--- NOTE | 2018-03-22 06:20 | Electrocardiograph Report ---
[facility] Test Date: 2018-03-20 Pat Name: Rianna Brooke Department: 104 Room: 3A24 Gender: F Insurance Claim Representative: MARCELLA : 1955 Requested By: Mark Yan Order Number: [id number] Reading MD: Greg King Measurements Intervals [place] Rate: 82 P: 68 MI: 165 QRS: 0 QRSD: 85 T: 40 QT: 364 QTc: 403 Interpretive Statements SINUS RHYTHM VOLTAGE CRITERIA FOR LVH Electronically Signed On 03-22-2018 6:19:23 EDT by Greg King
[2018-03-22] MEDS: Tiotropium 18 MCG inhalation IH SCH (07:33)
--- NOTE | 2018-03-22 08:20 | Internal Med Progress Note ---
<Beny Olivo - Last Filed: 03/22/18 11:53> Date of Encounter: 03/22/18 Time of Encounter: 08:18 - Assessment and plan (1) Acute cholecystitis Current Visit: Yes Status: Acute Assessment and plan: Right upper quadrant abdominal pain with associated fever and nausea. Physical exam shows positive Farias sign. 03/15/18 ultrasound shows acute cholecystitis. POD#1 s/p laparoscopic cholecystectomy. Plan: - Antibiotics: continue Zosyn - Diet: Advance diet per surgery recommendation - Discontinue IVF once patient is tolerating adequate PO fluids (2) Thrombocytopenia Current Visit: Yes Status: Acute Assessment and plan: Secondary cirrhosis and splenomegaly Transfuse platelets as needed to keep platelet count > 50 if patient starts bleeding (3) Hepatitis C Current Visit: Yes Status: Acute Assessment and plan: Acute vs chronic Hep C. CT abd and pelvis 12/23 showed liver cirrhosis. Transaminitis due to hepatitis C. Qualifiers: Viral hepatitis chronicity: unspecified Hepatic coma status: without hepatic coma Qualified Code(s): B19.20 - Unspecified viral hepatitis C without hepatic coma (4) Leukopenia Current Visit: Yes Status: Chronic Assessment and plan: Chronic, due to breast cancer therapy Qualifiers: Leukopenia type: lymphocytopenia Qualified Code(s): D72.810 - Lymphocytopenia (5) Breast cancer Current Visit: No Status: Chronic Assessment and plan: Continue Outpatient management Qualifiers: Breast location: unspecified site of breast Estrogen receptor status: unspecified Patient sex: female Laterality: unspecified laterality Qualified Code(s): C50.919 - Malignant neoplasm of unspecified site of unspecified female breast (6) Cervical cancer Current Visit: No Status: Chronic Assessment and plan: Outpatient management Qualifiers: Malignant neoplasm of cervix location: unspecified location Qualified Code( s): C53.9 - Malignant neoplasm of cervix uteri, unspecified (7) Hypertension Current Visit: Yes Status: Chronic Assessment and plan: continue home meds. Qualifiers: Hypertension type: essential hypertension Qualified Code(s): I10 - Essential (primary) hypertension (8) Tobacco use Current Visit: Yes Status: Acute Assessment and plan: Continue nicotine patch. Tobacco cessation discussed (9) DVT prophylaxis Current Visit: Yes Status: Acute Assessment and plan: ICDs as patient's platelet count is in 40s. (10) Cirrhosis Current Visit: Yes Status: Chronic Qualifiers: Hepatic cirrhosis type: unspecified hepatic cirrhosis Ascites presence: without ascites Qualified Code(s): K74.60 - Unspecified cirrhosis of liver - Time Spent With Patient Total time spent is greater than 50% in coordination of care (as documented) at patient's floor/unit and/or counseling patient: - Subjective Interval history: Patient seen and examined on POD#1 resting comfortably in bed. Patient is on regular diet this AM. She denies active bleeding or any new c/o at this time. Patient is passing gas, denies BM. She reports ambulating in her room today - Constitutional Vitals: Temp Pulse Resp BP Pulse Ox 98.1 F 87 17 122/73 97 03/22/18 05:50 03/22/18 05:50 03/22/18 07:35 03/22/18 05:50 03/22/18 07:35 General appearance: Present: cooperative, mild distress, answers questions appropriately - Head Head exam: Present: atraumatic, normocephalic - Eye Eye exam: Present: PERRL, conjuntiva pink, sclera anicteric Pupils: Present: PERRL - ENT ENT exam: Present: mucous membranes moist, normal oropharynx - Neck Neck exam general surgery: Present: supple, trachea midline. Absent: lymphadenopathy - Respiratory Respiratory exam: Present: CTAB. Absent: accessory muscle use, rales, rhonchi, wheezes - Cardiovascular Cardiovascular exam: Present: RRR, +S1, +S2. Absent: diastolic murmur, gallop, rubs, systolic murmur - GI/Abdominal GI/Abdominal exam: Present: normal bowel sounds, soft, tenderness (approptriate) , no peritoneal signs. Absent: distended - Extremities Exam Extremities exam: Present: warm, radial pulses palpable and symmetrical. Absent : calf tenderness, cyanotic, pedal edema - Incison Incision: Present: clean and dry, intact - Back Exam Back exam: Present: normal inspection. Absent: paraspinal tenderness, tenderness - Neurological Exam Neurological exam: Present: CN II-XII intact, oriented X3, no focal deficits. Absent: pronater drift, facial droop, speech deficit - Psychiatric Psychiatric exam: Present: normal affect, normal mood - Skin Skin exam: Present: dry, intact, normal color, warm Internal Medicine: Result - Labs CBC & Chem 7: 03/21/18 17:13 03/21/18 01:03 Labs: Short CBC 03/21/18 Range/Units 17:13 WBC 3.5 L (4.3-11.1) K/mcL Hgb 11.2 L (11.5-15.4) g/dL Hct 35.1 L (35.3-44.9) % Plt Count 39 L (140-400) K/mcL Neutrophils # 2.6 (1.6-8.9) K/mcL - ABG Interpretation ABG results: PT/INR, D-dimer PT 16.2 Seconds (9.4-12.1) H 03/21/18 01:03 - Pulse Oximetry Interpretation Digit-Finger Pulse Oximetry Readin (On RA) - VTE Documentation of Mechanical Device: Intermittent pneumatic compression device Consult Discharge Plan - Plan Additional Instructions: General Surgical Discharge Instructions 1. No pushing, pulling, or lifting greater than 15 lbs for 2 weeks. 2. You may shower beginning today, but no tub baths, soaking, or swimming for 2 weeks. 3. You may resume driving when you are off narcotics and are safe to react in a car. 4. Take ibuprofen every 8 hours for discomfort. If this does not relieve discomfort, you may take the as needed Percocet. Take narcotics as directed. Do not take more narcotics then directed and do not share your narcotics with any other person. Do not drink alcohol while on narcotics. 5. Take stool softeners (Colace) or a water based laxative (Miralax) while taking narcotics. You may hold for loose stools. 6. Report any fevers greater than 100.5F, increase abdominal discomfort, drainage that looks like pus, increased redness or pain at the surgical site, or any vomiting. 7. Report any pain in the calves, shortness of breath, or rapid heartbeat. 8. Follow-up in the office as directed 04/05/18 at 8:00 AM 9. If you were prescribed antibiotics, do not stop them without talking to your provider. Referrals: Maday Sweeney [employer]AT OUTFITTING SUPERVISOR [Advanced Practice Nurse] - 04/05/18 8:00 am Prescriptions: Ondansetron ODT [Zofran ODT] 4 mg SL Q6HR PRN #15 tab.rapdis PRN Reason: Nausea OxyCODONE/APAP 5/325 [Percocet 5/325 MG] 1 each PO Q6HR PRN 7 Days #28 tablet PRN Reason: Pain Docusate [Colace] 100 mg PO BID #30 capsule <Regis Mari - Last Filed: 03/22/18 14:29> Date of Encounter: 03/22/18 - Assessment and plan (1) Acute cholecystitis Current Visit: Yes Status: Acute (2) Thrombocytopenia Current Visit: Yes Status: Acute (3) Hypertension Current Visit: Yes Status: Chronic Qualifiers: Hypertension type: essential hypertension Qualified Code(s): I10 - Essential (primary) hypertension (4) Hepatitis C Current Visit: Yes Status: Acute Qualifiers: Viral hepatitis chronicity: unspecified Hepatic coma status: without hepatic coma Qualified Code(s): B19.20 - Unspecified viral hepatitis C without hepatic coma (5) DVT prophylaxis Current Visit: Yes Status: Acute (6) Leukopenia Current Visit: Yes Status: Chronic Qualifiers: Leukopenia type: lymphocytopenia Qualified Code(s): D72.810 - Lymphocytopenia (7) Tobacco use Current Visit: Yes Status: Acute (8) Breast cancer Current Visit: No Status: Chronic Qualifiers: Breast location: unspecified site of breast Estrogen receptor status: unspecified Patient sex: female Laterality: unspecified laterality Qualified Code(s): C50.919 - Malignant neoplasm of unspecified site of unspecified female breast (9) Cervical cancer Current Visit: No Status: Chronic Qualifiers: Malignant neoplasm of cervix location: unspecified location Qualified Code( s): C53.9 - Malignant neoplasm of cervix uteri, unspecified (10) Cirrhosis Current Visit: Yes Status: Chronic Qualifiers: Hepatic cirrhosis type: unspecified hepatic cirrhosis Ascites presence: without ascites Qualified Code(s): K74.60 - Unspecified cirrhosis of liver - Time Spent With Patient Total time spent is greater than 50% in coordination of care (as documented) at patient's floor/unit and/or counseling patient: - Constitutional Vitals: Temp Pulse Resp BP Pulse Ox 98.4 F 78 16 130/73 97 03/22/18 10:55 03/22/18 10:55 03/22/18 10:55 03/22/18 10:55 03/22/18 10:55 Internal Medicine: Result - Labs CBC & Chem 7: 03/21/18 17:13 03/21/18 01:03 Labs: Short CBC 03/21/18 Range/Units 17:13 WBC 3.5 L (4.3-11.1) K/mcL Hgb 11.2 L (11.5-15.4) g/dL Hct 35.1 L (35.3-44.9) % Plt Count 39 L (140-400) K/mcL Neutrophils # 2.6 (1.6-8.9) K/mcL - ABG Interpretation ABG results: PT/INR, D-dimer PT 16.2 Seconds (9.4-12.1) H 03/21/18 01:03 - Attending Attestation I examined this patient and my medical decision-making was reviewed with the Resident Physician Dr. Olivo. I agree with the documented findings, disposition and treatment plan as described except to the extent set forth below. Ms. Brooke is a 62 year old female with a past medical history of CVA, hyperlipidemia, hypertension, breast cancer, cervical cancer, cirrhosis secondary to hepatitis C, and thrombocytopenia who presented to the ED from her PCP With abnormal RUQ US showed cholecystitis. Pt was admitted in the hospital and started her on empirical abx Zosyn. She did have cholecystectomy on . Her pain tolerable with meds. Gen: A, A, O x 3 chest: Diminished BS b/l Heart: S1S2+ RRR Abd: Soft, RUQ Tenderness a/p 1. Acute cholecystitis 2. s/p cholecystectomy Cont broad spec abx Zosyn d/c IV fluids 2.Chronic throbocytopenia Due to Cirrhosis of liver Cont platelet transfusion goal to keep numbers > 50
[2018-03-22] MEDS: Gabapentin 300 MG CAPSULE PO SCH ×2 (08:23→21:15)
[2018-03-22] MEDS ORDERED: Spironolactone 25 MG TABLET PO SCH (09:00)
--- NOTE | 2018-03-22 09:01 | General Surgery Progress Note ---
Date of Encounter: 03/22/18 Time of Encounter: 08:20 - Assessment and Plan (1) Acute cholecystitis Current Visit: Yes Status: Acute POD #1 s/p laparoscopic cholecystectomy with Dr. Garcia PLAN: Advance diet as tolerated Pain and nausea control Recommend GI follow-up for cirrhosis Antibiotics and transfusions per primary team From a surgical standpoint doing well - anticipate sign-off Pt can follow-up with Surgery in 2 weeks Subjective Patient reports: no new complaints, feels better, still having pain, pain is less, tolerating liquids well, voiding w/o difficulty, flatus, afebrile Narrative: Patient reports she is doing well. Pain consistent with surgery yesterday. Ambulating well. Tolerating liquids. No N/V. + flatus. No chills or fevers overnight. Objective Vital Signs - Last 8 Hours Temp Pulse Resp BP Pulse Ox 03/22/18 07:35 17 97 03/22/18 05:50 98.1 F 87 16 122/73 96 03/22/18 03:25 97.6 F 76 14 169/90 97 Intake and Output 03/21/18 03/22/18 03/22/18 23:59 07:59 15:59 Intake Total 680 / 680 1400 / 1400 Output Total 500 / 500 1000 / 1000 Balance 180 / 180 400 / 400 Intake: IV Fluids 100 / 100 1000 / 1000 0.9 % Sodium Chloride 1,000 ML 1000 / 1000 @ 100 mls/hr IVC .Q10H LIAT Rx#: [id number] Zosyn 3.375 GM In 0.9 % Sodium 100 / 100 Chloride (Mini-Bag +) 100 ML @ 25 mls/hr IVPB Q8H LIAT Rx#: [id number] Oral 580 / 580 400 / 400 Output: Urine 450 / 450 1000 / 1000 Estimated Blood Loss 50 / 50 Other: # Bowel Movements 0 Weight 90 kg Patient Weight 03/22/18 23:59 Weight 90 kg - General physical appearance well developed, well nourished, no distress - Eyes normal ocular movement - Respiratory normal expansion, normal respiratory effort - Cardiovascular Cardiovascular exam: Present: RRR - Abdomen Abdomen: Present: bowel sounds present, soft, tender (appropriately). Absent: distended, guarding, rebound, rigid - Incision Incision: Present: clean and dry, intact (adjacent ecchymosis. No drainage or bleeding noted). Absent: draining, red, erythema, purulent - Integumentary no rash, no abnormal pigmentation - Neurologic CN 2-12 grossly intact, normal coordination - Psychiatric oriented to time, oriented to person, oriented to place, speech is normal, memory intact - Labs 03/21/18 17:13 03/21/18 01:03 - VTE Documentation of Mechanical Device: Intermittent pneumatic compression device Consult Discharge Plan - Plan Additional Instructions: General Surgical Discharge Instructions 1. No pushing, pulling, or lifting greater than 15 lbs for 2 weeks. 2. You may shower beginning today, but no tub baths, soaking, or swimming for 2 weeks. 3. You may resume driving when you are off narcotics and are safe to react in a car. 4. Take ibuprofen every 8 hours for discomfort. If this does not relieve discomfort, you may take the as needed Percocet. Take narcotics as directed. Do not take more narcotics then directed and do not share your narcotics with any other person. Do not drink alcohol while on narcotics. 5. Take stool softeners (Colace) or a water based laxative (Miralax) while taking narcotics. You may hold for loose stools. 6. Report any fevers greater than 100.5F, increase abdominal discomfort, drainage that looks like pus, increased redness or pain at the surgical site, or any vomiting. 7. Report any pain in the calves, shortness of breath, or rapid heartbeat. 8. Follow-up in the office as directed 04/05/18 at 8:00 AM 9. If you were prescribed antibiotics, do not stop them without talking to your provider. Referrals: Maday Sweeney CNP [Advanced Practice Nurse] - 04/05/18 8:00 am Prescriptions: Ondansetron ODT [Zofran ODT] 4 mg SL Q6HR PRN #15 tab.rapdis PRN Reason: Nausea OxyCODONE/APAP 5/325 [Percocet 5/325 MG] 1 each PO Q6HR PRN 7 Days #28 tablet PRN Reason: Pain Docusate [Colace] 100 mg PO BID #30 capsule
[2018-03-22] MEDS ORDERED: Nicotine 21 MG PATCH.TD24 TD SCH (11:30)
--- NOTE | 2018-03-22 12:07 | Operative Note ---
Date of procedure: 03/21/18 Pre-op diagnosis: Acute cholecystitis Post-op diagnosis: same Procedure: Laparoscopic cholecystectomy Anesthesia: NANCY Surgeon: Mark Garcia Was there an licensed nursing assistant present: Yes Commodity Management Specialist: Shania Verduzco Estimated blood loss (cc): 25 Specimen: Gallbladder Condition: stable Disposition: floor Procedure in Detail: After informed consent the patient was taken to the operating room. After adequate sedation anesthesia the abdomen was prepped and draped. A proper timeout was performed. Two towel clamps to place the umbilicus. A varies needle was placed at the umbilicus and a pneumo-peritoneum was created. A 12 mm incision was made at the umbilicus and a port was placed under direct visualization. An 5 mm incision was created in the left upper quadrant, followed by one in the right upper quadrant. There were 2 individual 5 mm cannulas then placed in the RUQ. The liver revealed severe cirrhosis with cobblestoning. A alligator clamp was then placed on the gallbladder was retracted anteriorly and cephalad. The infundibulum of the gallbladder was identified and the cystic duct was skeletonized. Once the structures were identified the cystic duct was clipped twice proximally and once distally. Cystic duct was then transected. The gallbladder was then resected off the liver surface. Once the gallbladder was fully resected from the liver surface, the liver was gently irrigated and suctioned dry. We ensured hemostasis prior to removing the gallbladder through the umbilical port. Pneumoperitoneum was then evacuated. The 12 mm cannula site was closed with a 0-Vicryl suture in [id number] fashion. The port sites were injected with half percent Marcaine 30 mL. The skin was closed with 4-0 Vicryl suture and Dermabond. All instrument counts and needle counts were correct at the end of the case. The pt was taken to recovery in stable condition.
[2018-03-22] MEDS: *HR* OxyCODONE/APAP 5/325 TABLET PO PRN ×2 (14:54→20:00)
[2018-03-23 01:54] LABS: Basophils % 0.2 %; Eosinophils # 0.1 K/mcL (0.0-0.6); Eosinophils % 1.4 %; Hematocrit 32.2 % (35.3-44.9); Hemoglobin 10.5 g/dL (11.5-15.4); Immature Granulocytes % 0.6 % (0-4); Lymphocytes # 1.2 K/mcL (0.6-4.6); Lymphocytes % 23.8 %; Mean Corpuscular HGB Conc 32.6 g/dL (31.6-35.5); Mean Corpuscular Hemoglobin 28.1 pg (28.0-33.3); Mean Corpuscular Volume 86.1 fL (83.0-100.0); Mean Platelet Volume 11.5 fL (9.4-12.4); Monocytes # 0.4 K/mcL (0.0-1.3); Monocytes % 7.4 %; Neutrophils # 3.3 K/mcL (1.6-8.9); Red Blood Count 3.74 M/mcL (3.82-4.97); Red Cell Distribution Width 15.3 % (11.5-14.5); Segmented Neutrophils % 66.6 %
[2018-03-23 01:55] LABS: Platelet Count 43 K/mcL (140-400)
[2018-03-23 02:25] LABS: BUN/Creatinine Ratio 21 (6-26); Blood Urea Nitrogen 17 mg/dL (8-23); Calcium 8.5 mg/dL (8.6-10.3); Carbon Dioxide 25 mEq/L (23-29); Chloride 108 mEq/L (98-107); Glucose 144 mg/dL (70-105); Osmolality,Calculated 286 (280-300); Potassium 3.9 mEq/L (3.5-5.1); Sodium 136 mEq/L (136-145); eGFR For African Americans > 60 (> 60); eGFR For Non-African Americans > 60 (> 60)
[2018-03-23] MEDS: *HR* OxyCODONE/APAP 5/325 TABLET PO PRN ×2 (03:16→09:15)
[2018-03-23] MEDS: Piperacillin/Tazobactam 3.375 GM in 0.9 % Sodium Chloride Mini Bag 100 ML IVPB SCH (03:17)
[2018-03-23 06:24] VITALS: BP 122/74
--- NOTE | 2018-03-23 08:06 | Discharge Summary ---
- NOTES TO OUTPATIENT PROVIDER Notes to Outpatient Provider: follow up with surgery in 1-2 weeks. Please continue following with your GI / Liver specialist regarding your Cirrhosis of Liver Date of Encounter: 03/23/18 Time of Encounter: 08:01 - Discharge Diagnosis (1) Acute cholecystitis Priority: Primary Status: Acute (2) Thrombocytopenia Priority: Primary Status: Acute (3) Hypertension Priority: Secondary Status: Chronic Qualifiers: Hypertension type: essential hypertension Qualified Code(s): I10 - Essential (primary) hypertension (4) Hepatitis C Priority: Secondary Status: Acute Qualifiers: Viral hepatitis chronicity: unspecified Hepatic coma status: without hepatic coma Qualified Code(s): B19.20 - Unspecified viral hepatitis C without hepatic coma (5) DVT prophylaxis Priority: Secondary Status: Acute (6) Leukopenia Priority: Secondary Status: Chronic Qualifiers: Leukopenia type: lymphocytopenia Qualified Code(s): D72.810 - Lymphocytopenia (7) Tobacco use Priority: Secondary Status: Acute (8) Breast cancer Priority: Secondary Status: Chronic Qualifiers: Breast location: unspecified site of breast Estrogen receptor status: unspecified Patient sex: female Laterality: unspecified laterality Qualified Code(s): C50.919 - Malignant neoplasm of unspecified site of unspecified female breast (9) Cervical cancer Priority: Secondary Status: Chronic Qualifiers: Malignant neoplasm of cervix location: unspecified location Qualified Code( s): C53.9 - Malignant neoplasm of cervix uteri, unspecified (10) Cirrhosis Priority: Secondary Status: Chronic Qualifiers: Hepatic cirrhosis type: unspecified hepatic cirrhosis Ascites presence: without ascites Qualified Code(s): K74.60 - Unspecified cirrhosis of liver Hospital course: Ms. Brooke is a 62 year old female with a past medical history of CVA, hyperlipidemia, hypertension, breast cancer, cervical cancer, cirrhosis secondary to hepatitis C, and thrombocytopenia who presented to the ED from her PCP With abnormal RUQ US showed cholecystitis. Pt was admitted in the hospital and started her on empirical abx Zosyn. She did have cholecystectomy on . Her pain tolerable with meds. she did have chronic thrombocytopenia due to cirrhosis of liver. She did received 2 U platelets and her platelets are stable around 43K now. Post op her Hb stable, tolerating PO intake well. So will d/c her home in stable condition today PO abx for 4 more days. Pt did c/o cough with yellowish sputum, concerning for bronchitis. So counseled to quit smoking, also recommend to finish current abx course. - Time Spent with Patient Total time spent providing and/or coordinating discharge services: - Discharge Medications Prescriptions: Ondansetron ODT [Zofran ODT] 4 mg SL Q6HR PRN #15 tab.rapdis PRN Reason: Nausea OxyCODONE/APAP 5/325 [Percocet 5/325 MG] 1 each PO Q6HR PRN 7 Days #28 tablet PRN Reason: Pain Amoxicillin/Clavulanate [Augmentin] 875 mg PO BIDWM #8 tablet Docusate [Colace] 100 mg PO BID #30 capsule Nicotine Patch [Nicoderm] 21 mg TD Q24H #30 patch.td24 Home Medications: Gabapentin [Neurontin] 300 mg PO BID #60 capsule 02/22/18 [Rx] Spironolactone [Aldactone] 25 mg PO DAILY 03/20/18 [History] Tiotropium [Spiriva] 18 mcg IH 0700 03/20/18 [History] Docusate [Colace] 100 mg PO BID #30 capsule 03/22/18 [Rx] Ondansetron ODT [Zofran ODT] 4 mg SL Q6HR PRN #15 tab.rapdis 03/22/18 [Rx] OxyCODONE/APAP 5/325 [Percocet 5/325 MG] 1 each PO Q6HR PRN 7 Days #28 tablet [Rx] Amoxicillin/Clavulanate [Augmentin] 875 mg PO BIDWM #8 tablet 03/23/18 [Rx] Nicotine Patch [Nicoderm] 21 mg TD Q24H #30 patch.td24 03/23/18 [Rx] Allergies/Adverse Reactions: 3 Allergy/AdvReac Type Severity Reaction Status Date / Time aspirin Allergy Swelling Verified 03/20/18 18:46 of Lip/Tongue/Throat Date of admission: 03/21/18 12:35 Primary care physician: Zion Morgan - Constitutional Vitals: Temp Pulse Resp BP Pulse Ox 98.0 F 77 16 122/74 93 03/23/18 06:23 03/23/18 06:23 03/23/18 06:23 03/23/18 06:23 03/23/18 06:23 General appearance: Present: cooperative, A&O X 3, answers questions appropriately - Head Head exam: Present: atraumatic, normal inspection - Neck Neck exam general surgery: Present: supple - Cardiovascular Cardiovascular exam: Present: RRR, +S1, +S2. Absent: tachycardia - GI/Abdominal GI/Abdominal exam: Present: normal bowel sounds, soft. Absent: rebound, rigid Additional comments: Clean incisions. - Extremities Exam Extremities exam: Absent: calf tenderness, pedal edema, tenderness - Incison Incision: Present: clean and dry - Back Exam Back exam: Absent: CVA tenderness (L), CVA tenderness (R) - Neurological Exam Neurological exam: Present: alert, oriented X3 - Psychiatric Psychiatric exam: Present: normal affect, normal mood - Patient Status Disposition: Home, Self-Care Condition: Good Overall status at discharge: patient is back to baseline - Discharge Instructions Follow Up With: Maday Sweeney ASSOCIATE PROFESSOR OF PHILOSOPHY [Advanced Practice Nurse] - 04/05/18 8:00 am Additional Instructions: General Surgical Discharge Instructions 1. No pushing, pulling, or lifting greater than 15 lbs for 2 weeks. 2. You may shower beginning today, but no tub baths, soaking, or swimming for 2 weeks. 3. You may resume driving when you are off narcotics and are safe to react in a car. 4. Take ibuprofen every 8 hours for discomfort. If this does not relieve discomfort, you may take the as needed Percocet. Take narcotics as directed. Do not take more narcotics then directed and do not share your narcotics with any other person. Do not drink alcohol while on narcotics. 5. Take stool softeners (Colace) or a water based laxative (Miralax) while taking narcotics. You may hold for loose stools. 6. Report any fevers greater than 100.5F, increase abdominal discomfort, drainage that looks like pus, increased redness or pain at the surgical site, or any vomiting. 7. Report any pain in the calves, shortness of breath, or rapid heartbeat. 8. Follow-up in the office as directed 04/05/18 at 8:00 AM 9. If you were prescribed antibiotics, do not stop them without talking to your provider. - Diet and Activity Activity: increase activity as tolerated Diet: low salt diet - VTE Documentation of Mechanical Device: Intermittent pneumatic compression device
[2018-03-23] MEDS: Gabapentin 300 MG CAPSULE PO SCH (09:15)
[2018-03-23] MEDS: Tiotropium 18 MCG inhalation IH SCH (10:09)
[2018-03-25 11:24] LABS: HCV Quant Interpretation DETECTED (Not Detected)
[2018-03-29 07:47] LABS: HCV Genotype by Sequencing 1A OR 1B
== END 2018-03-23 10:30 | disposition home or self-care (01) | DRG 418 ==
LOC: 3ANU 18:16 → EMEROO 18:16 → SUATTDRO 21:28 → 3ANU 22:14
PROVIDERS: ADMIT Family Medicine; ATTEND Family Medicine

== ENCOUNTER 2018-06-04 12:09 | Inpatient (IN) ==
[2018-06-04 13:05] LABS: Bilirubin,Urine Small (Negative); Blood,Urine Negative (Negative); Color,Urine Orange (Yellow); Glucose,Urine (UA) Normal (Normal); Ketones,Urine Trace mg/dL (Negative); Leukocyte Esterase,Urine Trace (Negative); Nitrite,Urine Negative (Negative); PH,Urine 6.5 pH Units (5.0-8.0); Protein,Urine 30 mg/dL (Neg-Trace); Specific Gravity,Urine 1.028 (1.010-1.025); Urobilinogen,Urine Normal (Normal)
[2018-06-04 13:07] LABS: Bacteria,Urine None Seen per hpf (None-Few); Hyaline Casts,Urine Few per lpf (None-Few); RBC,Urine 0-3 per hpf (0-3); Squamous Epithelial Cell,Urine Many per lpf (None-Few)
[2018-06-04 13:09] LABS: Clarity,Urine Hazy (Clear)
[2018-06-04 13:25] LABS: Basophils % 0.3 %; Eosinophils # 0.1 K/mcL (0.0-0.6); Eosinophils % 1.7 %; Hemoglobin 11.9 g/dL (11.5-15.4); Immature Platelets 5.7 % (1.1-6.1); Lymphocytes # 0.9 K/mcL (0.6-4.6); Lymphocytes % 31.5 %; Mean Corpuscular HGB Conc 32.2 g/dL (31.6-35.5); Mean Corpuscular Hemoglobin 27.7 pg (28.0-33.3); Mean Corpuscular Volume 86.2 fL (83.0-100.0); Mean Platelet Volume 11.3 fL (9.4-12.4); Monocytes # 0.2 K/mcL (0.0-1.3); Monocytes % 7.7 %; Neutrophils # 1.7 K/mcL (1.6-8.9); Platelet Count 45 K/mcL (140-400); Red Blood Count 4.29 M/mcL (3.82-4.97); Segmented Neutrophils % 58.8 %
[2018-06-04 13:33] LABS: Mucus,Urine Moderate (Few)
[2018-06-04 13:48] LABS: Troponin I < 0.03 ng/mL (< 0.04)
[2018-06-04 13:49] LABS: Alanine Aminotransferase 47 Units/L (7-52); Albumin 3.4 g/dL (3.5-5.7); Albumin/Globulin Ratio 0.8 (1.1-2.2); Alkaline Phosphatase 80 Units/L (34-104); Amylase 32 Units/L (29-103); Aspartate Amino Transferase 56 Units/L (13-39); BUN/Creatinine Ratio 21 (6-26); Bilirubin,Direct 0.4 mg/dL (0.0-0.2); Bilirubin,Indirect 0.7 mg/dL (0.0-1.2); Bilirubin,Total 1.1 mg/dL (0.3-1.0); Blood Urea Nitrogen 15 mg/dL (8-23); Calcium 9.1 mg/dL (8.6-10.3); Carbon Dioxide 27 mEq/L (23-29); Chloride 109 mEq/L (98-107); Globulin 4.2 g/dL (2.4-3.5); Glucose 112 mg/dL (70-105); Lipase 30 Units/L (11-82); Osmolality,Calculated 292 (280-300); Potassium 3.6 mEq/L (3.5-5.1); Sodium 140 mEq/L (136-145); Total Protein 7.6 g/dL (6.4-8.9); eGFR For Non-African Americans > 60 (> 60)
[2018-06-04] MEDS ORDERED: *HR* HYDROcodone/Acet 5/325 mg TABLET PO ONE (15:21)
--- NOTE | 2018-06-04 17:01 | Internal Med History&Physical ---
Date of Encounter: 06/04/18 Time of Encounter: 16:50 Internal Medicine - H&P: HPI Chief complaint: LUQ pain Admitted From: Home Plans for Post Hospital Care: Home History of present illness: Ms. Brooke is a 63 year old female with history of leukopenia, cirrhosis, hepatatis C infection from blood transfusion and breast cancer presented to [facility] with complaint of left upper quadrant pain. as per patietn her pain started about 3 days ago and has progressively worsening. it is located in the left upper quadrant, its cramping in nature. aggravated by movement and alleviated by laying still. denies abdominal trauma or similar symptoms in the past. in addition to LUQ pain she laso complains of blood mixed with her stools, she describes her stools as black with bright red blood on the stool. last BM was 2 days ago. she denies profuse bleeding, she is not on any blood thinners. denies hematemesis. in addition to above she also complains of dysuria and frequency which started about 3 days ago. her urinary symptoms are constant and she cannot recall any aggravating or alleviating factors. she also reports that she has had abdominal distension that is progressively worsening over the last few days. she has had previous episodes of abdominal distention but denies ever having paracentesis or abdominal infections. her last colonoscopy and endoscopy was years ago. she has not been able to follow up with GI specialist for atleast 1 year due to insurance reasons she denies fever, chills, chest pain, SOB, N/V/D, weakness, loss of function in her extremities, fall, syncope, trauma. Past Med Surg Social Fam HX - Past Medical History Medical history: cancer, COPD, CVA, hepatitis, hypertension, liver disease, TIA , other Additional medical history: breast ca Psychiatric history: no psych history - Past Surgical History Surgical History: appendectomy, cholecystectomy Additional surgical history: left masectomy, lung surgeries (unsure type) - Social History Smoking Status: Current every day smoker Smokeless Tobacco Status: No Alcohol use: none Drug use: none - Family History Mother Adopted: No Living Status: Age at : 53 Cause of : Lung surgery Hx Family Cardiac Disorders: No Hx Family Respiratory Disorders: Yes Hx Family Cancer: Yes Hx Family GI Disorders: No Hx Family Genitourinary Disorders: No Hx Family Endocrine Disorder: No Hx Family Musculoskeletal Disorders: No Hx Family Neuromuscular Disorders: No Hx Family Neurologic Disorders: No Hx Family HEENT Disorders: No Hx Family Autoimmune Disorders: No Hx Family Reproductive Disorders: No Hx Family Psychosocial Disorders: No Hx Family Medical Disorders: No Internal Medicine - H&P: Meds Gabapentin [Neurontin] 300 mg PO BID #60 capsule 02/22/18 [Rx] Spironolactone [Aldactone] 25 mg PO DAILY 03/20/18 [History] Tiotropium [Spiriva] 18 mcg IH 0700 03/20/18 [History] Ondansetron ODT [Zofran ODT] 4 mg SL Q6HR PRN #15 tab.rapdis 03/22/18 [Rx] Nicotine Patch [Nicoderm] 21 mg TD Q24H #30 patch.td24 03/23/18 [Rx] 3 Allergy/AdvReac Type Severity Reaction Status Date / Time aspirin Allergy Swelling Verified 03/20/18 18:46 of Lip/Tongue/Throat All Systems PM: review of systems was performed and is negative for pertinent findings except as documented above in the HPI. - Constitutional Vitals: Temp Pulse Resp BP Pulse Ox 98.6 F 74 16 176/80 96 06/04/18 16:14 06/04/18 16:14 06/04/18 16:14 06/04/18 16:14 06/04/18 16:14 Exam: General: Patient is alert, oriented, no acute distress, Head: atraumatic, normocephalic, Eye: normal appearance, PERRL, no scleral icterus, no conjunctival injection ENT: mucous membranes moist, normal external ear exam Neck: normal inspection, trachea midline, full ROM, no carotid bruits Chest: normal inspection, symmetric chest rise, has left sided mastectomy scar. Respiratory: Good respiratory effort. Bilateral breath sounds are clear without wheezing, crackles, or rhonchi. Cardiovascular: Regular rate and rhythm. s1 and s2 No clicks, rubs, gallops, or murmors. Abdomen: Bowel sounds present normoactive x-4 quadrants. Abdomen is soft, distended. ve fluid fave, no Epigastric tenderness. no rebound tenderness, does have LUQ pain, spleenomegally musculoskeletal: Spontaneously moving all extremities. no edema, no calf tenderness Skin: warm, dry, intact. Neuro: Alert and oriented x4. Sensation light touch intact. Cranial nerves 2- 12 is intact. Not aphasic, Psych: Patient's affect is normal Internal Med - H&P Results - Labs CBC & Chem 7: 06/04/18 13:09 06/04/18 13:09 - Assessment and plan (1) Cirrhosis of liver with ascites Current Visit: Yes Assessment and plan: has cirrhosis with evidence of portal HTN ( Splenomegally, varices) will get IR consult for paracentesis IV ceftriaxone for SBP prophylaxis GI was consulted - will follow recommendations Ammonia level Bcx alcohol level tylenol level hepatits panel - HCV RNA magnesium level once GIB is controlled will start her on BB for varcies prophylaxis Qualifiers: Hepatic cirrhosis type: unspecified hepatic cirrhosis Qualified Code(s): K74.60 - Unspecified cirrhosis of liver; R18.8 - Other ascites (2) GIB (gastrointestinal bleeding) Current Visit: Yes Status: Acute Assessment and plan: secondary to ulcer vs varices ( has varices on CT A/P ) follow CBC Q8H type and screen transfuse if below 7 octeotride drip protonix drip avoid anti platelets and AC GI was consulted - Dr. Parr will follow recommendations PTT/INR will start ceftriaxoe IV for SBP prophylaxis NPO for now IVF at 60cc per hr - watch for overload stool guaiac once GIB is controlled will start her on BB for varcies prophylaxis Qualifiers: Gastritis type: unspecified gastritis Qualified Code(s): K29.71 - Gastritis , unspecified, with bleeding (3) Portal hypertension with esophageal varices Current Visit: Yes Status: Acute Assessment and plan: has history of cirrhosis due to hep C CT A/P showing portal htn, varices and spenomegally has black stools , once GIB is controlled will start her on BB for prophylaxis GI was consulted for endoscopy adn colonoscopy- she has not have any studies in years. (4) UTI (urinary tract infection) Current Visit: Yes Status: Acute Assessment and plan: will send ucx will start her on ceftriaxone follow bcx Qualifiers: Urinary tract infection type: acute cystitis Hematuria presence: without hematuria Qualified Code(s): N30.00 - Acute cystitis without hematuria (5) Leukopenia Current Visit: No Status: Chronic Assessment and plan: chronic leukopenia secondary to breast cancer therapy vs infection induced will send lactic acid on ceftriaxone Qualifiers: Leukopenia type: unspecified Qualified Code(s): D72.819 - Decreased white blood cell count, unspecified (6) Hypoalbuminemia Current Visit: Yes Status: Acute Assessment and plan: most likely secondary to cirrhosis will continue to monitor (7) Thrombocytopenia Current Visit: No Status: Acute Assessment and plan: most likely secondary to cirrhosis will continue to monitor for bleeding - Transfuse platelets as needed to keep platelet count > 50 if patient starts bleeding will send PTT/INR avoid AC and Antiplatelets (8) Hepatitis C Current Visit: No Status: Acute Assessment and plan: history of hepatitis C secondary to blood transfusion in her her 30s will send HCV RNA Qualifiers: Viral hepatitis chronicity: chronic Hepatic coma status: without hepatic coma Qualified Code(s): B18.2 - Chronic viral hepatitis C (9) Breast cancer Current Visit: No Status: Chronic Assessment and plan: s/p mastectomy last mammogram was in 03/14/18- 1. No evidence of malignancy in the right breast. Recommend clinical follow-up for the patient's breast pain. 2. Status post left mastectomy. Qualifiers: Breast location: unspecified site of breast Estrogen receptor status: unspecified Patient sex: female Laterality: left Qualified Code(s): C50.912 - Malignant neoplasm of unspecified site of left female breast (10) COPD (chronic obstructive pulmonary disease) Current Visit: Yes Status: Acute Assessment and plan: continue home medications CXR for admission Qualifiers: COPD type: emphysema Emphysema type: unspecified Qualified Code(s): J43.9 - Emphysema, unspecified (11) Tobacco use Current Visit: No Status: Acute Assessment and plan: was counseled (12) DVT prophylaxis Current Visit: No Status: Acute Assessment and plan: SCD - Time Spent With Patient Total time spent is greater than 50% in coordination of care (as documented) at patient's floor/unit and/or counseling patient:
[2018-06-04] MEDS ORDERED: Naloxone 0.4 MG/ML INJ IVP PRN (17:15)
[2018-06-04] MEDS ORDERED: Albuterol 2.5 MG/3 ML NEBULIZER IH PRN (17:29)
[2018-06-04 18:03] LABS: INR 1.6; Prothrombin Time 17.5 Seconds (9.4-12.1)
[2018-06-04 18:19] LABS: Acetaminophen < 10 mcg/mL (10-20); Ethanol 12 mg/dL (Less than 10); Phosphorous 3.6 mg/dL (2.7-4.5)
[2018-06-04] MEDS ORDERED: *HR* LORazepam 2 MG/ML VIAL IVP PRN ×2 (18:21)
[2018-06-04] MEDS ORDERED: Folic Acid 1 MG in D5% in Water 50 ML IVPB ONE (18:30)
[2018-06-04] MEDS: *HR* LORazepam 2 MG/ML VIAL IVP PRN (19:09)
[2018-06-04] MEDS: cefTRIAXone 2,000 MG in Water for inj. (sterile) 20 ML 20 ML IVP SCH (19:10)
[2018-06-04] MEDS: Pantoprazole 40 MG in 0.9 % Sodium Chloride Mini Bag 100 ML IVC SCH (19:12)
[2018-06-04] MEDS: 0.9 % Sodium Chloride 1,000 ML IVC SCH (19:13)
[2018-06-04] MEDS: Nicotine 21 MG PATCH.TD24 TD SCH (19:14)
[2018-06-04] MEDS: Thiamine (B-1) 100 MG in D5% in Water 50 ML IVPB SCH (20:06)
--- NOTE | 2018-06-04 20:54 | Emergency Department Note ---
Disposition Clinical Impression: Splenomegaly Disposition: Admitted As Inpatient Condition: Undetermined General Adult HPI - General Chief complaint: ED Abdominal Pain Stated complaint: abd pain, "enlarged spleen", from GI Time Seen by Provider: 06/04/18 12:12 Source: patient Limitations: no limitations Nursing Notes Reviewed: Yes Vital Signs Reviewed: Yes - History of Present Illness HPI Narrative: This is a 63-year-old female who presents with concern for splenomegaly. She has a history of cirrhosis. This is due to underlying hepatitis C. She follows with Dr. Pressley. The patient was sent here today after being evaluated in the office. She was found to have abdominal pain, splenomegaly, ascites. She is not on interferon therapy or other treatment for hepatitis C. They are concerned about workup for ascites as well as splenomegaly. General: No acute distress HEENT: Pupils equal and reactive to light, extraoccular muscle movement is normal, TMS are clear bilaterally. Heart: RRR, No murmor rub or gallop Lungs: lungs clear, no wheezing, rales or ronchi. ABD: Ascites, splenomegaly, round obese non-peritoneal abdomen. Extremities: No cyanosis, clubbing or edema Neuro: CN 2-12 in tact, no focal deficit. strength 5/5. Medical decision making Splenomegaly, ascites, CT confirms splenomegaly. The patient also has leukopenia, cirrhosis, ascites, protein malnourishment. We will admit for further management of abdominal pain at the request of gastroenterology. Pain Scale: 10 - Related Data Home Medications Medication Instructions Recorded Confirmed Spironolactone [Aldactone] 25 mg PO DAILY 03/20/18 06/04/18 Tiotropium [Spiriva] 18 mcg IH 0700 03/20/18 06/04/18 Previous Rx's Medication Instructions Recorded Gabapentin [Neurontin] 300 mg PO BID #60 capsule 02/22/18 Nicotine Patch [Nicoderm] 21 mg TD Q24H #30 patch.td24 03/23/18 Allergies Allergy/AdvReac Type Severity Reaction Status Date / Time aspirin Allergy Swelling Verified 06/04/18 19:48 of Lip/Tongue/Throat All systems ED: reviewed and negative except as stated. Past Medical History - Past Medical History Medical history: Reports: cancer, COPD, CVA, hepatitis, hypertension, liver disease, TIA, other Surgical history: Reports: appendectomy, cholecystectomy Psychiatric history: Reports: no psych history - Social History Smoking Status: Current every day smoker Smokeless Tobacco Status: No Alcohol use: Reports: none Drug use: Reports: none Physical Exam - General Limitations: no limitations General appearance: alert, in no apparent distress Course Vital Signs Temperature 98.4 F 06/04/18 12:23 Pulse Rate 66 06/04/18 12:23 Respiratory Rate 12 06/04/18 12:23 Blood Pressure 157/84 06/04/18 12:23 O2 Sat by Pulse Oximetry 99 06/04/18 12:23 Temperature 98.6 F 06/04/18 16:14 Pulse Rate 74 06/04/18 16:14 Respiratory Rate 16 06/04/18 16:14 Blood Pressure 176/80 06/04/18 16:14 O2 Sat by Pulse Oximetry 95 06/04/18 17:25 Oxygen Delivery Oxygen Delivery Room Air Medical Decision Making - Lab Data Result diagrams: 06/04/18 13:09 06/04/18 13:09 Lab Results 06/04/18 06/04/18 06/04/18 Range/Units 12:52 13:09 13:09 WBC 2.9 L (4.3-11.1) K/mcL RBC 4.29 (3.82-4.97) M/mcL Hgb 11.9 (11.5-15.4) g/dL Hct 37.0 (35.3-44.9) % MCV 86.2 (83.0-100.0) fL MCH 27.7 L (28.0-33.3) pg MCHC 32.2 (31.6-35.5) g/dL RDW 15.0 H (11.5-14.5) % Plt Count 45 L (140-400) K/mcL MPV 11.3 (9.4-12.4) fL Immature Gran % 0.0 (0-4) % Seg Neutrophils % 58.8 % Lymphocytes % 31.5 % Monocytes % 7.7 % Eosinophils % 1.7 % Basophils % 0.3 % Neutrophils # 1.7 (1.6-8.9) K/mcL Lymphocytes # 0.9 (0.6-4.6) K/mcL Monocytes # 0.2 (0.0-1.3) K/mcL Eosinophils # 0.1 (0.0-0.6) K/mcL Basophils # 0.0 (0.0-0.2) K/mcL Immature Plt Fraction 5.7 (1.1-6.1) % Sodium 140 (136-145) mEq/L Potassium 3.6 (3.5-5.1) mEq/L Chloride 109 H (98-107) mEq/L Carbon Dioxide 27 (23-29) mEq/L BUN 15 (8-23) mg/dL Creatinine 0.73 (0.60-1.20) mg/dL Est GFR ( Amer) > 60 (> 60) Est GFR (Non-Af Amer) > 60 (> 60) BUN/Creatinine Ratio 21 (6-26) Glucose 112 H (70-105) mg/dL Calculated Osmolality 292 (280-300) Lactic Acid (0.5-2.2) mmol/L Calcium 9.1 (8.6-10.3) mg/dL Total Bilirubin 1.1 H (0.3-1.0) mg/dL Direct Bilirubin 0.4 H (0.0-0.2) mg/dL Indirect Bilirubin 0.7 (0.0-1.2) mg/dL AST 56 H (13-39) Units/L ALT 47 (7-52) Units/L Alkaline Phosphatase 80 (34-104) Units/L Troponin I < 0.03 (< 0.04) ng/mL Serum Total Protein 7.6 (6.4-8.9) g/dL Albumin 3.4 L (3.5-5.7) g/dL Globulin 4.2 H (2.4-3.5) g/dL Albumin/Globulin Ratio 0.8 L (1.1-2.2) Amylase 32 (29-103) Units/L Lipase 30 (11-82) Units/L Urine Color [place] A (Yellow) Urine Clarity Hazy A (Clear) Urine pH 6.5 (5.0-8.0) pH Units Ur Specific [place] 1.028 H (1.010-1.025) Urine Protein 30 H (Neg-Trace) mg/dL Urine Glucose (UA) Normal (Normal) mg/dL Urine Ketones Trace H (Negative) mg/dL Urine Blood Negative (Negative) Urine Nitrite Negative (Negative) Urine Bilirubin Small H (Negative) Urine Urobilinogen Normal (Normal) mg/dL Ur Leukocyte Esterase Trace H (Negative) Urine Microscopic RBC 0-3 (0-3) per hpf Urine Microscopic WBC 3-5 H (0-3) per hpf Ur Squamous Epith Cells Many H (None-Few) per lpf Urine Bacteria None Seen (None-Few) per hpf Hyaline Casts Few (None-Few) per lpf Urine Mucus Moderate H (Few) Ur Culture Indicated? NO. A (NO) 06/04/18 Range/Units 13:09 WBC (4.3-11.1) K/mcL RBC (3.82-4.97) M/mcL Hgb (11.5-15.4) g/dL Hct (35.3-44.9) % MCV (83.0-100.0) fL MCH (28.0-33.3) pg MCHC (31.6-35.5) g/dL RDW (11.5-14.5) % Plt Count (140-400) K/mcL MPV (9.4-12.4) fL Immature Gran % (0-4) % Seg Neutrophils % % Lymphocytes % % Monocytes % % Eosinophils % % Basophils % % Neutrophils # (1.6-8.9) K/mcL Lymphocytes # (0.6-4.6) K/mcL Monocytes # (0.0-1.3) K/mcL Eosinophils # (0.0-0.6) K/mcL Basophils # (0.0-0.2) K/mcL Immature Plt Fraction (1.1-6.1) % Sodium (136-145) mEq/L Potassium (3.5-5.1) mEq/L Chloride (98-107) mEq/L Carbon Dioxide (23-29) mEq/L BUN (8-23) mg/dL Creatinine (0.60-1.20) mg/dL Est GFR ( Amer) (> 60) Est GFR (Non-Af Amer) (> 60) BUN/Creatinine Ratio (6-26) Glucose (70-105) mg/dL Calculated Osmolality (280-300) Lactic Acid 1.2 (0.5-2.2) mmol/L Calcium (8.6-10.3) mg/dL Total Bilirubin (0.3-1.0) mg/dL Direct Bilirubin (0.0-0.2) mg/dL Indirect Bilirubin (0.0-1.2) mg/dL AST (13-39) Units/L ALT (7-52) Units/L Alkaline Phosphatase (34-104) Units/L Troponin I (< 0.04) ng/mL Serum Total Protein (6.4-8.9) g/dL Albumin (3.5-5.7) g/dL Globulin (2.4-3.5) g/dL Albumin/Globulin Ratio (1.1-2.2) Amylase (29-103) Units/L Lipase (11-82) Units/L Urine Color (Yellow) Urine Clarity (Clear) Urine pH (5.0-8.0) pH Units Ur Specific [place] (1.010-1.025) Urine Protein (Neg-Trace) mg/dL Urine Glucose (UA) (Normal) mg/dL Urine Ketones (Negative) mg/dL Urine Blood (Negative) Urine Nitrite (Negative) Urine Bilirubin (Negative) Urine Urobilinogen (Normal) mg/dL Ur Leukocyte Esterase (Negative) Urine Microscopic RBC (0-3) per hpf Urine Microscopic WBC (0-3) per hpf Ur Squamous Epith Cells (None-Few) per lpf Urine Bacteria (None-Few) per hpf Hyaline Casts (None-Few) per lpf Urine Mucus (Few) Ur Culture Indicated? (NO)
[2018-06-04 22:05] LABS: Eosinophils % 2.8 %; Mean Platelet Volume 11.2 fL (9.4-12.4)
[2018-06-04 22:07] LABS: Basophils % 0.4 %; Eosinophils # 0.1 K/mcL (0.0-0.6); Hematocrit 33.9 % (35.3-44.9); Hemoglobin 10.9 g/dL (11.5-15.4); Immature Platelets 5.5 % (1.1-6.1); Lymphocytes # 0.9 K/mcL (0.6-4.6); Lymphocytes % 36.4 %; Mean Corpuscular HGB Conc 32.2 g/dL (31.6-35.5); Mean Corpuscular Hemoglobin 27.5 pg (28.0-33.3); Mean Corpuscular Volume 85.4 fL (83.0-100.0); Monocytes # 0.2 K/mcL (0.0-1.3); Monocytes % 7.2 %; Neutrophils # 1.3 K/mcL (1.6-8.9); Platelet Count 40 K/mcL (140-400); Red Blood Count 3.97 M/mcL (3.82-4.97); Red Cell Distribution Width 14.8 % (11.5-14.5); Segmented Neutrophils % 53.2 %
[2018-06-04] MEDS: Octreotide 400 MCG in 0.9 % Sodium Chloride 100 ML IVC SCH (22:16)
[2018-06-05] MEDS: Pantoprazole 40 MG in 0.9 % Sodium Chloride Mini Bag 100 ML IVC SCH ×3 (01:15→10:39)
[2018-06-05] MEDS: traMADol 50 MG TABLET PO PRN ×2 (01:17→09:09)
[2018-06-05] MEDS: *HR* LORazepam 2 MG/ML VIAL IVP PRN (01:45)
[2018-06-05 03:49] LABS: Hepatitis A Antibody IgM Nonreactive (Nonreactive); Hepatitis B Core IgM Nonreactive (Nonreactive); Hepatitis B Surface Antibody 2.58 mIU/mL; Hepatitis B Surface Antigen Nonreactive (Nonreactive)
[2018-06-05 04:53] LABS: Immature Granulocytes % 0.8 % (0-4); Lymphocytes % 39.2 %
[2018-06-05 04:54] LABS: Basophils % 0.4 %; Eosinophils # 0.1 K/mcL (0.0-0.6); Eosinophils % 2.3 %; Hematocrit 34.8 % (35.3-44.9); Hemoglobin 11.2 g/dL (11.5-15.4); Immature Platelets 7.4 % (1.1-6.1); Mean Corpuscular HGB Conc 32.2 g/dL (31.6-35.5); Mean Corpuscular Hemoglobin 27.3 pg (28.0-33.3); Mean Corpuscular Volume 84.9 fL (83.0-100.0); Mean Platelet Volume 11.6 fL (9.4-12.4); Monocytes # 0.2 K/mcL (0.0-1.3); Monocytes % 8.7 %; Neutrophils # 1.3 K/mcL (1.6-8.9); Red Cell Distribution Width 14.9 % (11.5-14.5); Segmented Neutrophils % 48.6 %
[2018-06-05 05:00] LABS: Platelet Count 39 K/mcL (140-400)
[2018-06-05 05:05] LABS: BUN/Creatinine Ratio 21 (6-26); Blood Urea Nitrogen 13 mg/dL (8-23); Calcium 8.4 mg/dL (8.6-10.3); Carbon Dioxide 23 mEq/L (23-29); Chloride 109 mEq/L (98-107); Chol/HDL Ratio 2.8 (0-4.9); Cholesterol 82 mg/dL (< 200); Glucose 101 mg/dL (70-105); HDL Cholesterol 29 mg/dL (40-59); LDL Cholesterol,Calculated 40 mg/dL (0-99); Osmolality,Calculated 288 (280-300); Potassium 3.8 mEq/L (3.5-5.1); Sodium 139 mEq/L (136-145); Triglycerides 67 mg/dL (< 150); eGFR For Non-African Americans > 60 (> 60)
[2018-06-05] MEDS ORDERED: Tiotropium 18 MCG inhalation IH SCH (07:00)
--- NOTE | 2018-06-05 07:38 | Electrocardiograph Report ---
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
[2018-06-05] MEDS: Thiamine (B-1) 100 MG in D5% in Water 50 ML IVPB SCH (09:28)
[2018-06-05] MEDS: 0.9 % Sodium Chloride 1,000 ML IVC SCH (09:34)
[2018-06-05] MEDS: Tiotropium 18 MCG inhalation IH SCH (11:29)
[2018-06-05] MEDS: Octreotide 400 MCG in 0.9 % Sodium Chloride 100 ML IVC SCH (11:29)
--- NOTE | 2018-06-05 12:46 | Gastroenterology Consult Note ---
<Tommie Sutton - Last Filed: 06/05/18 12:44> Date of Encounter: 06/05/18 Time of Encounter: 10:40 - Assessment and plan (1) GIB (gastrointestinal bleeding) Current Visit: Yes Status: Acute Assessment and plan: Due to GI bleed, she was started on octreotide and PPI drip. CT A/P showed cirrhosis with portal hypertension including splenomegaly and ascites, gastric varices and probable esophageal varices are also apparent. Plan for EGD and colonoscopy tomorrow. Clear liquid diet today, no red or purple. NPO at midnight. If unable tolerate NuLytely please use MiraLAX prep. If not clear by 6 AM, give 2 tap water enemas. Qualifiers: Gastritis type: unspecified gastritis Qualified Code(s): K29.71 - Gastritis , unspecified, with bleeding (2) Cirrhosis Current Visit: No Status: Chronic Assessment and plan: MELD-Na 12, Child-Ferraro class B. Titrate Lactulose for 2-4 BMs daily. AFP 7 on . Lifestyle Changes: 1. Total abstinence from alcohol including social drinking. 2. No smoking. 3. Gradual loss of weight. 4. Drink at least 3 cups of coffee due to its antioxidant effects in the liver, it reduces risk of HCC and advance fibrosis. 5. If needed, use less than 2 g/day of Tylenol (in divided doses). 6. Vaccination for Hep A, B, Pneumococcus if not already received and yearly influenza vaccination by PCP. 7. Avoid NSAIDS as can cause kidney damage. 8. Avoid benzodiazepines and other sedatives such as anti-histamines, narcotics etc. as can cause encephalopathy or confusion. 9. Take a late carbohydrate meal supplement as it reduces glucose production from protein breakdown and thus improves nutrition. 10. In cirrhosis, statins are safe to use and also improve portal hypertension and decrease risk of HCC. Qualifiers: Hepatic cirrhosis type: unspecified hepatic cirrhosis Ascites presence: without ascites Qualified Code(s): K74.60 - Unspecified cirrhosis of liver (3) Hepatitis C Current Visit: No Status: Acute Assessment and plan: Hep C with viral load on 5.9 million and genotype 1A/1B. Will complete workup and evaluation for treatment as outpatient. Qualifiers: Viral hepatitis chronicity: chronic Hepatic coma status: without hepatic coma Qualified Code(s): B18.2 - Chronic viral hepatitis C (4) Thrombocytopenia Current Visit: No Status: Acute Assessment and plan: Secondary to cirrhosis. - Time Spent With Patient Total time spent is greater than 50% in coordination of care (as documented) at patient's floor/unit and/or counseling patient: GI History of Present Illness - Data of Consult Patient: new to practice Consult date: 06/05/18 Requesting Physician: Magdalene Lopez MD - Consult Narrative Reason for consult: GIB, Cirrhosis History of present illness: Ms. Brooke is a 63 year old female with PMHx of breast cancer, cirrhosis, hepatitis C who presented with complaint of LUQ pain that started 3 days prior to admission. She also reports her stool as black with bright red blood on the stool. She complains of abdominal distention that has been worsening over the past few days. She has never had paracentesis. She denies fever, chills, chest pain, nausea, vomiting, diarrhea, or constipation. She was started on ceftriaxone for SBP prophylaxis. Due to GI bleed, she was started on octreotide and PPI drip. CT A/P showed cirrhosis with portal hypertension including splenomegaly and ascites, gastric varices and probable esophageal varices are also apparent. Procedures: EGD and colonoscopy in [place], patient unsure of when or results. NSAIDs: None Anticoagulation: None Past Med Surg Social Fam HX - Past Medical History Medical history: cancer, COPD, CVA, hepatitis, hypertension, liver disease, TIA , other Additional medical history: breast ca Psychiatric history: no psych history - Past Surgical History Surgical History: appendectomy, cholecystectomy Additional surgical history: left masectomy, lung surgeries (unsure type) - Social History Smoking Status: Current every day smoker Smokeless Tobacco Status: No Alcohol use: none Drug use: none - Family History Mother Adopted: No Living Status: Age at : 53 Cause of : Lung surgery Hx Family Cardiac Disorders: No Hx Family Respiratory Disorders: Yes Hx Family Cancer: Yes Hx Family GI Disorders: No Hx Family Genitourinary Disorders: No Hx Family Endocrine Disorder: No Hx Family Musculoskeletal Disorders: No Hx Family Neuromuscular Disorders: No Hx Family Neurologic Disorders: No Hx Family HEENT Disorders: No Hx Family Autoimmune Disorders: No Hx Family Reproductive Disorders: No Hx Family Psychosocial Disorders: No Hx Family Medical Disorders: No - Gastrointestinal Gastrointestinal: Present: as per HPI - Constitutional Constitutional: as per HPI - EENT Eyes: as per HPI Ears: Present: as per HPI Nose, mouth and throat: Present: as per HPI - Cardiovascular Cardiovascular ROS: Present: as per HPI - Respiratory Respiratory IM: Present: as per HPI - Genitourinary Genitourinary: Absent: change in color, Urinary frequency - Neurological ROS Neurological GI: Present: as per HPI - Hematologic/Lymphatic Hematologic/Lymphatic pediatric: Present: as per HPI - Musculoskeletal Musculoskeletal ROS GI: Present: as per HPI - Integumentary Integumentary GI: Present: as per HPI - Psychiatric ROS Psychiatric GI: Present: as per HPI - Endocrine Endocrine IM: Present: as per HPI - Constitutional Vitals: Temp Pulse Resp BP Pulse Ox 98.1 F 82 19 178/111 96 06/05/18 12:16 06/05/18 12:16 06/05/18 12:16 06/05/18 12:16 06/05/18 12:16 General appearance: Present: cooperative, A&O X 3, no acute distress, answers questions appropriately - Head Head exam: Present: atraumatic, normocephalic - Eye Eye exam: Present: normal appearance, sclera anicteric - ENT ENT exam: Present: mucous membranes dry - Neck Neck exam general surgery: Present: normal inspection, trachea midline - Respiratory Respiratory exam: Present: CTAB. Absent: rales, rhonchi - Cardiovascular Cardiovascular exam: Present: RRR, +S1, +S2 - GI/Abdominal GI/Abdominal exam: Present: distended, soft, tenderness (LUQ), no peritoneal signs. Absent: firm, guarding - Rectal Rectal exam: Present: deferred - Extremities Exam Extremities exam: Present: warm - Neurological Exam Neurological exam: Present: no focal deficits - Psychiatric Psychiatric exam: Present: normal affect, normal mood - Skin Skin exam: Present: dry, intact, normal color, warm Results - Labs CBC & Chem 7: 06/05/18 03:49 06/05/18 03:49 Labs: Last Result Calcium 8.4 mg/dL (8.6-10.3) L 06/05/18 03:49 Troponin I < 0.03 ng/mL (< 0.04) 06/04/18 13:09 Triglycerides 67 mg/dL (< 150) 06/05/18 03:49 Entire Visit Hgb 11.2 g/dL (11.5-15.4) L 06/05/18 03:49 Hct 34.8 % (35.3-44.9) L 06/05/18 03:49 PT 17.5 Seconds (9.4-12.1) H 06/04/18 17:39 Total Bilirubin 1.1 mg/dL (0.3-1.0) H 06/04/18 13:09 AST 56 Units/L (13-39) H 06/04/18 13:09 ALT 47 Units/L (7-52) 06/04/18 13:09 Ammonia 57 mcmol/L (16-53) H 06/04/18 17:39 Amylase 32 Units/L (29-103) 06/04/18 13:09 Lipase 30 Units/L (11-82) 06/04/18 13:09 Acetaminophen < 10 mcg/mL (10-20) L 06/04/18 17:39 - ABG ABG results: PT/INR, D-dimer PT 17.5 Seconds (9.4-12.1) H 06/04/18 17:39 - Impressions Impressions Chest X-Ray 06/04/18 17:17 IMPRESSION: Emphysematous changes. Biapical opacities which are most likely related to scarring and pleural thickening have increased from the prior exam. Consider further evaluation with chest CT to exclude an underlying mass on a nonemergent basis. D/ / Harley Cerna MD / Harley Cerna MD Interpreting Provider: Harley Cerna MD Consult Discharge Plan - Plan Referrals: Zion Morgan [Primary Care Provider] - Gabrielle Mcdaniel [Family Provider] - <Ara Parr - Last Filed: 06/05/18 18:27> Date of Encounter: 06/05/18 Time of Encounter: 17:45 - Time Spent With Patient Total time spent is greater than 50% in coordination of care (as documented) at patient's floor/unit and/or counseling patient: GI History of Present Illness - Data of Consult Requesting Physician: Magdalene Lopez MD - Consult Narrative History of present illness: Ms. Brooke is a 63 year old female - Constitutional Vitals: Temp Pulse Resp BP Pulse Ox 98.0 F 67 18 177/94 99 06/05/18 16:37 06/05/18 16:37 06/05/18 16:37 06/05/18 16:37 06/05/18 16:37 Results - Labs CBC & Chem 7: 06/05/18 14:05 06/05/18 03:49 Labs: Last Result Calcium 8.4 mg/dL (8.6-10.3) L 06/05/18 03:49 Troponin I < 0.03 ng/mL (< 0.04) 06/04/18 13:09 Triglycerides 67 mg/dL (< 150) 06/05/18 03:49 Entire Visit Hgb 11.8 g/dL (11.5-15.4) 06/05/18 14:05 Hct 36.6 % (35.3-44.9) 06/05/18 14:05 PT 17.5 Seconds (9.4-12.1) H 06/04/18 17:39 Total Bilirubin 1.1 mg/dL (0.3-1.0) H 06/04/18 13:09 AST 56 Units/L (13-39) H 06/04/18 13:09 ALT 47 Units/L (7-52) 06/04/18 13:09 Ammonia 57 mcmol/L (16-53) H 06/04/18 17:39 Amylase 32 Units/L (29-103) 06/04/18 13:09 Lipase 30 Units/L (11-82) 06/04/18 13:09 Acetaminophen < 10 mcg/mL (10-20) L 06/04/18 17:39 - ABG ABG results: PT/INR, D-dimer PT 17.5 Seconds (9.4-12.1) H 06/04/18 17:39 - Attending Attestation I have personally performed a face to face evaluation on this patient. I have reviewed and agree with the care plan. History and Exam by me shows: Patient seen. denies any abdominal pain on examination abdomen is benign. Assessment patient with cirrhosis with the anemia and rectal bleeding. Recommendation: EGD to rule out upper GI causes such as varices portal hypertension tension gastropathy etc. and colonoscopy to rule out lower GI causes for her anemia
[2018-06-05 14:34] LABS: Hematocrit 36.6 % (35.3-44.9); Mean Corpuscular Volume 85.3 fL (83.0-100.0); Red Blood Count 4.29 M/mcL (3.82-4.97)
[2018-06-05 14:36] LABS: Basophils % 0.7 %; Eosinophils % 1.4 %; Hemoglobin 11.8 g/dL (11.5-15.4); Immature Platelets 7.7 % (1.1-6.1); Lymphocytes % 34.1 %; Mean Corpuscular HGB Conc 32.2 g/dL (31.6-35.5); Mean Corpuscular Hemoglobin 27.5 pg (28.0-33.3); Mean Platelet Volume 11.8 fL (9.4-12.4); Monocytes # 0.2 K/mcL (0.0-1.3); Neutrophils # 1.6 K/mcL (1.6-8.9); Red Cell Distribution Width 14.7 % (11.5-14.5); Segmented Neutrophils % 55.8 %
--- NOTE | 2018-06-05 14:36 | Internal Med Progress Note ---
Hospitalist Progress Note - Encounter Date of Encounter: 06/05/18 Time of Encounter: 14:34 - Subjective Interval History: patient was seen at bedside. denies N/v/D. pain is somewhat controlled. has had no overnight events. denies fever, chills, n/v/d, hematochezia, melena, hematemesis. - Exam Vitals: Temp Pulse Resp BP Pulse Ox 98.1 F 82 19 178/111 96 06/05/18 12:16 06/05/18 12:16 06/05/18 12:16 06/05/18 12:16 06/05/18 12:16 Exam: General: Patient is alert, oriented, no acute distress, Head: atraumatic, normocephalic, Eye: normal appearance, PERRL, no scleral icterus, no conjunctival injection ENT: mucous membranes moist, normal external ear exam Neck: normal inspection, trachea midline, full ROM, no carotid bruits Chest: normal inspection, symmetric chest rise, has left sided mastectomy scar. Respiratory: Good respiratory effort. Bilateral breath sounds are clear without wheezing, crackles, or rhonchi. Cardiovascular: Regular rate and rhythm. s1 and s2 No clicks, rubs, gallops, or murmors. Abdomen: Bowel sounds present normoactive x-4 quadrants. Abdomen is soft, distended. ve fluid wave, no Epigastric tenderness. no rebound tenderness, does have LUQ painon palpation, spleenomegally musculoskeletal: Spontaneously moving all extremities. no edema, no calf tenderness Skin: warm, dry, intact. Neuro: Alert and oriented x4. Sensation light touch intact. Cranial nerves 2- 12 is intact. Not aphasic, Psych: Patient's affect is normal - Assessment and Plan (1) GIB (gastrointestinal bleeding) Current Visit: Yes Status: Acute Assessment and Plan: secondary to ulcer vs varices ( has varices on CT A/P ) follow CBC remains stable - will switch to CBC daily type and screen transfuse if below 7 octeotride drip protonix drip avoid anti platelets and AC GI was consulted - for endoscopy and colonoscopy in the AM ceftriaxone IV for SBP prophylaxis clear liquids for now - NPO at midnight stool guaiac once GIB is controlled will start her on BB for varcies prophylaxis (2) Cirrhosis of liver with ascites Current Visit: Yes Assessment and Plan: MELD-Na 12, Child-Ferraro class B. Titrate Lactulose for 2-4 BMs daily. AFP 7 on 03/15/2018. has cirrhosis with evidence of portal HTN ( Splenomegally, varices) IV ceftriaxone for SBP prophylaxis GI onboard once GIB is controlled will start her on BB for varcies prophylaxis (3) Hepatitis C Current Visit: No Status: Acute Assessment and Plan: Hep C with viral load on 5.9 million and genotype 1A/1B. complete workup and evaluation for treatment as outpatient as per GI recs (4) Hyperammonemia Current Visit: Yes Status: Acute Assessment and Plan: started lactulose titrate for 2-4 BM Qday (5) Portal hypertension with esophageal varices Current Visit: Yes Status: Acute Assessment and Plan: has history of cirrhosis due to hep C vs alcohol ( alcohol positive on admission ) CT A/P showing portal htn, varices and spenomegally GI was consulted - for endoscopy and colonoscopy in AM (6) UTI (urinary tract infection) Current Visit: Yes Status: Acute Assessment and Plan: on ceftriaxone (7) Leukopenia Current Visit: No Status: Chronic Assessment and Plan: chronic leukopenia secondary to breast cancer therapy vs infection induced on ceftriaxone for SBP prophylaxis and UTI (8) Hypoalbuminemia Current Visit: Yes Status: Acute Assessment and Plan: most likely secondary to cirrhosis will continue to monitor (9) Thrombocytopenia Current Visit: No Status: Acute Assessment and Plan: most likely secondary to cirrhosis will continue to monitor for bleeding - Transfuse platelets as needed to keep platelet count > 50 if patient starts bleeding will send PTT/INR avoid AC and Antiplatelets (10) Breast cancer Current Visit: No Status: Chronic Assessment and Plan: s/p mastectomy last mammogram was in 03/14/18- 1. No evidence of malignancy in the right breast. Recommend clinical follow-up for the patient's breast pain. 2. Status post left mastectomy. (11) COPD (chronic obstructive pulmonary disease) Current Visit: Yes Status: Acute Assessment and Plan: continue home medications (12) Tobacco use Current Visit: No Status: Acute Assessment and Plan: was counseled (13) DVT prophylaxis Current Visit: No Status: Acute Assessment and Plan: SCD - Time Spent with Patient Total time spent is greater than 50% in coordination of care (as documented) at patient's floor/unit and/or counseling patient: Plan of Care Discussed with: patient Internal Medicine: Result - Labs CBC & Chem 7: 06/05/18 14:05 06/05/18 03:49 Labs: Short CBC 06/04/18 06/05/18 Range/Units 21:35 03:49 WBC 2.5 L 2.6 L (4.3-11.1) K/mcL Hgb 10.9 L 11.2 L (11.5-15.4) g/dL Hct 33.9 L 34.8 L (35.3-44.9) % Plt Count 40 L 39 L (140-400) K/mcL Neutrophils # 1.3 L 1.3 L (1.6-8.9) K/mcL BMP 06/05/18 03:49 Sodium 139 Potassium 3.8 Chloride 109 H Carbon Dioxide 23 BUN 13 Creatinine 0.63 Glucose 101 Calcium 8.4 L - ABG Interpretation ABG results: PT/INR, D-dimer PT 17.5 Seconds (9.4-12.1) H 06/04/18 17:39 - Impressions Impressions Chest X-Ray 06/04/18 17:17 IMPRESSION: Emphysematous changes. Biapical opacities which are most likely related to scarring and pleural thickening have increased from the prior exam. Consider further evaluation with chest CT to exclude an underlying mass on a nonemergent basis. D/ / Harley Cerna MD / Harley Cerna MD Interpreting Provider: Harley Cerna MD Consult Discharge Plan - Plan Referrals: Zion Morgan [Primary Care Provider] - Gabrielle Mcdaniel [Family Provider] - (1) GIB (gastrointestinal bleeding) Qualifiers: Gastritis type: unspecified gastritis (2) Cirrhosis of liver with ascites Qualifiers: Hepatic cirrhosis type: unspecified hepatic cirrhosis Qualified Code(s): K74.60 - Unspecified cirrhosis of liver; R18.8 - Other ascites (3) Hepatitis C Qualifiers: Viral hepatitis chronicity: chronic Hepatic coma status: without hepatic coma Qualified Code(s): B18.2 - Chronic viral hepatitis C (6) UTI (urinary tract infection) Qualifiers: Urinary tract infection type: acute cystitis Hematuria presence: without hematuria Qualified Code(s): N30.00 - Acute cystitis without hematuria (7) Leukopenia Qualifiers: Leukopenia type: unspecified Qualified Code(s): D72.819 - Decreased white blood cell count, unspecified (10) Breast cancer Qualifiers: Breast location: unspecified site of breast Estrogen receptor status: unspecified Patient sex: female Laterality: left Qualified Code(s): C50.912 - Malignant neoplasm of unspecified site of left female breast (11) COPD (chronic obstructive pulmonary disease) Qualifiers: COPD type: emphysema Emphysema type: unspecified Qualified Code(s): J43.9 - Emphysema, unspecified
[2018-06-05 14:38] LABS: Platelet Count 37 K/mcL (140-400)
[2018-06-05] MEDS: Pantoprazole 40 MG VIAL IVP SCH ×2 (15:11→21:22)
[2018-06-05 15:53] LABS: Platelet Estimate Decreased (Normal)
[2018-06-05] MEDS: OXYCODONE Oral CONC 10 MG/0.5 ML ORAL.SYG SL PRN (16:27)
[2018-06-05] MEDS ORDERED: SODIUM CHLORIDE/NAHCO3/KCL/PEG 4,000 ML SOLN.RECON PO ONE (17:00)
[2018-06-05] MEDS: Nicotine 21 MG PATCH.TD24 TD SCH (17:40)
[2018-06-05] MEDS: cefTRIAXone 2,000 MG in Water for inj. (sterile) 20 ML 20 ML IVP SCH (17:41)
[2018-06-05] MEDS ORDERED: Thiamine (B-1) 100 MG in D5% in Water 50 ML IVPB SCH (18:00)
[2018-06-05] MEDS ORDERED: Folic Acid 1 MG in D5% in Water 50 ML IVPB SCH (18:00)
[2018-06-05] MEDS: Lactulose Oral Soln 20 GM/30 ML UDC PO SCH (21:22)
[2018-06-05] MEDS ORDERED: Ondansetron ODT 4 MG TAB.RAPDIS SL PRN (22:02)
[2018-06-06] MEDS: Octreotide 400 MCG in 0.9 % Sodium Chloride 100 ML IVC SCH (00:07)
[2018-06-06] MEDS: Pantoprazole 40 MG VIAL IVP SCH (05:41)
[2018-06-06 06:57] LABS: Mean Corpuscular Volume 85.3 fL (83.0-100.0)
[2018-06-06 06:59] LABS: Hematocrit 38.2 % (35.3-44.9); Hemoglobin 12.2 g/dL (11.5-15.4); Immature Platelets 7.5 % (1.1-6.1); Mean Corpuscular HGB Conc 31.9 g/dL (31.6-35.5); Mean Corpuscular Hemoglobin 27.2 pg (28.0-33.3); Mean Platelet Volume 11.5 fL (9.4-12.4); Red Blood Count 4.48 M/mcL (3.82-4.97); Red Cell Distribution Width 14.5 % (11.5-14.5)
[2018-06-06 07:19] LABS: BUN/Creatinine Ratio 14 (6-26); Blood Urea Nitrogen 9 mg/dL (8-23); Calcium 8.5 mg/dL (8.6-10.3); Carbon Dioxide 25 mEq/L (23-29); Chloride 105 mEq/L (98-107); Glucose 120 mg/dL (70-105); Osmolality,Calculated 278 (280-300); Potassium 3.8 mEq/L (3.5-5.1); Sodium 134 mEq/L (136-145); eGFR For Non-African Americans > 60 (> 60)
[2018-06-06] MEDS: Tiotropium 18 MCG inhalation IH SCH (07:56)
[2018-06-06] MEDS: OXYCODONE Oral CONC 10 MG/0.5 ML ORAL.SYG SL PRN ×3 (09:07→23:40)
--- NOTE | 2018-06-06 11:08 | Anesthesia Evaluation PreOp ---
Date of Encounter: 06/06/18 Time of Encounter: 12:42 - Past History Planned Operation: EGD, COLONOSCOPY Pulmonary History: Smoker, COPD Other Medical History: Hepatic (HEP C, LIVER CIRRHOSIS, PORTAL HYPERTENSION, ASCITES, SPLENOMEGALY), Bleeding (GI BLEEDING), Other (LEUKOPENIA, THRMBOCYTOPENIA) Anesthesia History: No Prior Anesthetic Complications, Past Anesthesia Alcohol Use: none Drug use: none Medications and Allergies Gabapentin [Neurontin] 300 mg PO BID #60 capsule 02/22/18 [Rx] Spironolactone [Aldactone] 25 mg PO DAILY 03/20/18 [History] Tiotropium [Spiriva] 18 mcg IH 0700 03/20/18 [History] Nicotine Patch [Nicoderm] 21 mg TD Q24H #30 patch.td24 03/23/18 [Rx] 3 Allergy/AdvReac Type Severity Reaction Status Date / Time aspirin Allergy Swelling Verified 06/04/18 19:48 of Lip/Tongue/Throat - Meds/Allergy Pre-op Review Medications Reviewed: Yes Allergies Reviewed: Yes Anesthesia Results - Labs 06/06/18 06:21 06/06/18 06:21 PT 17.5 Seconds (9.4-12.1) H 06/04/18 17:39 INR 1.6 06/04/18 17:39 APTT 40.0 Seconds (26.0-36.0) H 06/04/18 17:39 Lactic Acid 0.7 mmol/L (0.5-2.2) 06/04/18 17:39 Calcium 8.5 mg/dL (8.6-10.3) L 06/06/18 06:21 Phosphorus 3.6 mg/dL (2.7-4.5) 06/04/18 17:39 Magnesium 2.0 mg/dL (1.6-2.6) 06/04/18 17:39 Total Bilirubin 1.1 mg/dL (0.3-1.0) H 06/04/18 13:09 Direct Bilirubin 0.4 mg/dL (0.0-0.2) H 06/04/18 13:09 Indirect Bilirubin 0.7 mg/dL (0.0-1.2) 06/04/18 13:09 AST 56 Units/L (13-39) H 06/04/18 13:09 ALT 47 Units/L (7-52) 06/04/18 13:09 Alkaline Phosphatase 80 Units/L (34-104) 06/04/18 13:09 Ammonia 57 mcmol/L (16-53) H 06/04/18 17:39 Troponin I < 0.03 ng/mL (< 0.04) 06/04/18 13:09 Serum Total Protein 7.6 g/dL (6.4-8.9) 06/04/18 13:09 Albumin 3.4 g/dL (3.5-5.7) L 06/04/18 13:09 Globulin 4.2 g/dL (2.4-3.5) H 06/04/18 13:09 Albumin/Globulin Ratio 0.8 (1.1-2.2) L 06/04/18 13:09 Amylase 32 Units/L (29-103) 06/04/18 13:09 Lipase 30 Units/L (11-82) 06/04/18 13:09 Ethyl Alcohol 12 mg/dL (Less than 10) H 06/04/18 17:39 Hepatitis A IgM Ab Nonreactive (Nonreactive) 06/04/18 17:37 Hep Bs Antigen Nonreactive (Nonreactive) 06/04/18 17:37 Hep Bs Antibody 2.58 mIU/mL 06/04/18 17:37 Hep B Core IgM Ab Nonreactive (Nonreactive) 06/04/18 17:37 Blood Type O NEGATIVE 06/04/18 17:39 Antibody Screen NEGATIVE 06/04/18 17:39 - Imaging Additional studies: PFT 05/2018: FVC 50+1 % PREDICTED FEV1 38+6 % PREDICTED MVV 28 % PREDICTED DLCO 27 % PREDICTED Anesthesia Exam Vital Signs/O2 Sat/Glucose, Most Recent Temp Pulse Resp BP Pulse Ox 98.5 F 69 18 163/101 94 06/06/18 11:13 06/06/18 11:13 06/06/18 11:13 06/06/18 11:13 06/06/18 11:13 Blood Glucose* 118 Weight: 87 KG NPO (# of Hours): 8 - HEENT Pupil (Motor): Pupils equal Mallampati: I Teeth: Edentulous Oral Opening: Greater than 3 - Cardiac Rhythm: Regular - Pulmonary Breath Sounds: bilateral Clear Respiratory Effort: Symmetrical Anesthesia Assess/Plan ASA Score: 4 Modified [place] Scale for Level of Consciousness: Cooperative, oriented, and tranquil Anesthetic Plan: MAC Monitoring Plan: Standard Monitors Recovery Plan: Other Anes Supervising Prov Stmt: DIFFICULT IV ACCESS. 22 GA RIGHT HAND. POSSIBLE BLOOD TRANSFUSION POSSIBLE VENOUS ACESS
[2018-06-06] MEDS ORDERED: Propofol 500 MG/50 ML INFUS..BTL ONE (11:50)
[2018-06-06 12:03] LABS: Amphetamine Screen,Urine Negative ng/mL (Cutoff=1000); Barbiturate Screen,Urine Negative ng/mL (Cutoff=200); Benzodiazepines Screen,Urine Negative ng/mL (Cutoff=200); Cannabinoid Screen,Urine Negative ng/mL (Cutoff = 50); Cocaine Screen,Urine Negative ng/mL (Cutoff= 300); Opiate Screen,Urine Negative ng/mL (Cutoff=300); Phencyclidine Screen,Urine Negative ng/mL (Cutoff=25)
--- NOTE | 2018-06-06 12:03 | Internal Med Progress Note ---
Hospitalist Progress Note - Encounter Date of Encounter: 06/06/18 Time of Encounter: 12:01 - Subjective Interval History: patient was seen at bedside. denies N/v/D. pain is somewhat controlled. has had no overnight events. denies fever, chills, n/v/d, hematochezia, melena, hematemesis. - Exam Vitals: Temp Pulse Resp BP Pulse Ox 98.5 F 69 18 163/101 94 06/06/18 11:13 06/06/18 11:13 06/06/18 11:13 06/06/18 11:13 06/06/18 11:13 Exam: General: Patient is alert, oriented, no acute distress, Head: atraumatic, normocephalic, Eye: normal appearance, PERRL, no scleral icterus, no conjunctival injection ENT: mucous membranes moist, normal external ear exam Neck: normal inspection, trachea midline, full ROM, no carotid bruits Chest: normal inspection, symmetric chest rise, has left sided mastectomy scar. Respiratory: Good respiratory effort. Bilateral breath sounds are clear without wheezing, crackles, or rhonchi. Cardiovascular: Regular rate and rhythm. s1 and s2 No clicks, rubs, gallops, or murmors. Abdomen: Bowel sounds present normoactive x-4 quadrants. Abdomen is soft, distended. ve fluid wave, no Epigastric tenderness. no rebound tenderness, does have LUQ painon palpation, spleenomegally musculoskeletal: Spontaneously moving all extremities. no edema, no calf tenderness Skin: warm, dry, intact. Neuro: Alert and oriented x4. Sensation light touch intact. Cranial nerves 2- 12 is intact. Not aphasic, Psych: Patient's affect is normal - Assessment and Plan (1) GIB (gastrointestinal bleeding) Current Visit: Yes Status: Acute Assessment and Plan: secondary to ulcer vs varices ( has varices on CT A/P ) H/H stable transfuse if below 7 octeotride drip - might DC as per endoscopy report protonix drip avoid anti platelets and AC - might DC if no ulcer on endoscopy GI was consulted - for endoscopy and colonoscopy today will follow results ceftriaxone IV for SBP prophylaxis - will consider switching to cipro after procedure NPO will restart diet as per GI recommendations stool guaiac was started on nadolol for varices prophylaxis will increase dose based on GI recs (2) Cirrhosis of liver with ascites Current Visit: Yes Assessment and Plan: MELD-Na 12, Child-Ferraro class B. Titrate Lactulose for 2-4 BMs daily. AFP 7 on 03/15/2018. has cirrhosis with evidence of portal HTN ( Splenomegally, varices) IV ceftriaxone for SBP prophylaxis GI onboard on dnadolol for variceal prophylaxis GI onboard needs Q6M US of the liver as OP (3) Hepatitis C Current Visit: No Status: Acute Assessment and Plan: Hep C with viral load on 5.9 million and genotype 1A/1B. complete workup and evaluation for treatment as outpatient as per GI recs (4) Hyperammonemia Current Visit: Yes Status: Acute Assessment and Plan: started lactulose titrate for 2-4 BM Qday (5) Portal hypertension with esophageal varices Current Visit: Yes Status: Acute Assessment and Plan: has history of cirrhosis due to hep C vs alcohol ( alcohol positive on admission ) CT A/P showing portal htn, varices and spenomegally GI was consulted - for endoscopy and colonoscopy in AM on nadolol (6) UTI (urinary tract infection) Current Visit: Yes Status: Acute Assessment and Plan: on ceftriaxone (7) Leukopenia Current Visit: No Status: Chronic Assessment and Plan: chronic leukopenia secondary to breast cancer therapy vs infection induced on ceftriaxone for SBP prophylaxis and UTI (8) Hypoalbuminemia Current Visit: Yes Status: Acute Assessment and Plan: most likely secondary to cirrhosis will continue to monitor (9) Thrombocytopenia Current Visit: No Status: Acute Assessment and Plan: most likely secondary to cirrhosis will continue to monitor for bleeding - Transfuse platelets as needed to keep platelet count > 50 if patient starts bleeding will send PTT/INR avoid AC and Antiplatelets (10) Breast cancer Current Visit: No Status: Chronic Assessment and Plan: s/p mastectomy last mammogram was in 03/14/18- . No evidence of malignancy in the right breast. Recommend clinical follow-up for the patient's breast pain. 2. Status post left mastectomy. (11) COPD (chronic obstructive pulmonary disease) Current Visit: Yes Status: Acute Assessment and Plan: continue home medications (12) Tobacco use Current Visit: No Status: Acute Assessment and Plan: was counseled (13) HTN (hypertension) Current Visit: Yes Status: Acute Assessment and Plan: on nadolol for variceal prophylaxis will consider starting her on lasix and spironolactone post endoscopy as she also has Ascites (14) DVT prophylaxis Current Visit: No Status: Acute Assessment and Plan: SCD - Time Spent with Patient Total time spent is greater than 50% in coordination of care (as documented) at patient's floor/unit and/or counseling patient: Plan of Care Discussed with: patient Internal Medicine: Result - Labs CBC & Chem 7: 06/06/18 06:21 06/06/18 06:21 Labs: Short CBC 06/05/18 06/06/18 Range/Units 14:05 06:21 WBC 2.9 L 3.5 L (4.3-11.1) K/mcL Hgb 11.8 12.2 (11.5-15.4) g/dL Hct 36.6 38.2 (35.3-44.9) % Plt Count 37 L 44 L (140-400) K/mcL Neutrophils # 1.6 (1.6-8.9) K/mcL BMP 06/06/18 06:21 Sodium 134 L Potassium 3.8 Chloride 105 Carbon Dioxide 25 BUN 9 Creatinine 0.64 Glucose 120 H Calcium 8.5 L - ABG Interpretation ABG results: PT/INR, D-dimer PT 17.5 Seconds (9.4-12.1) H 06/04/18 17:39 - VTE Documentation of Mechanical Device: Intermittent pneumatic compression device Consult Discharge Plan - Plan Referrals: Zion Morgan [Primary Care Provider] - Gabrielle Mcdaniel [Family Provider] - (1) GIB (gastrointestinal bleeding) Qualifiers: Gastritis type: unspecified gastritis (2) Cirrhosis of liver with ascites Qualifiers: Hepatic cirrhosis type: unspecified hepatic cirrhosis Qualified Code(s): K74.60 - Unspecified cirrhosis of liver; R18.8 - Other ascites (3) Hepatitis C Qualifiers: Viral hepatitis chronicity: chronic Hepatic coma status: without hepatic coma Qualified Code(s): B18.2 - Chronic viral hepatitis C (6) UTI (urinary tract infection) Qualifiers: Urinary tract infection type: acute cystitis Hematuria presence: without hematuria Qualified Code(s): N30.00 - Acute cystitis without hematuria (7) Leukopenia Qualifiers: Leukopenia type: unspecified Qualified Code(s): D72.819 - Decreased white blood cell count, unspecified (10) Breast cancer Qualifiers: Breast location: unspecified site of breast Estrogen receptor status: unspecified Patient sex: female Laterality: left Qualified Code(s): C50.912 - Malignant neoplasm of unspecified site of left female breast (11) COPD (chronic obstructive pulmonary disease) Qualifiers: COPD type: emphysema Emphysema type: unspecified Qualified Code(s): J43.9 - Emphysema, unspecified (13) HTN (hypertension) Qualifiers: Hypertension type: essential hypertension Qualified Code(s): I10 - Essential (primary) hypertension
[2018-06-06] MEDS ORDERED: *HR* Propofol 200 MG/20 ML VIAL IVP ONE (12:39)
[2018-06-06] MEDS ORDERED: 0.9 % Sodium Chloride 1,000 ML IVC SCH (13:30)
--- NOTE | 2018-06-06 15:23 | Anesthesia Evaluation Post Op ---
Date of Encounter: 06/06/18 Time of Encounter: 14:00 - Vital Signs Vital Signs: 3 Vital Signs Time 1400 BP 140/74 Pulse 63 Resp 24 O2 Sat 99 - Lungs Lungs: Clear Ascult./Percussion - Airway Airway: Non-obstructed - Cardiovascular Regular Rate - Mental Status Mental Status: Alert & Oriented, Answers Appropriately - Nausea Vomiting Nausea Vomiting: Not Present - Hydration Hydration: NPO - Discharge PostOp Status: Transfer Patient to floor
[2018-06-06] MEDS: Lactulose Oral Soln 20 GM/30 ML UDC PO SCH ×2 (15:51→21:35)
[2018-06-06] MEDS ORDERED: Furosemide 40 MG/4 ML VIAL IVP ONE (15:58)
[2018-06-06] MEDS: Nicotine 21 MG PATCH.TD24 TD SCH (16:53)
[2018-06-07 05:19] LABS: Hematocrit 37.2 % (35.3-44.9); Hemoglobin 12.1 g/dL (11.5-15.4); Mean Corpuscular HGB Conc 32.5 g/dL (31.6-35.5); Mean Corpuscular Hemoglobin 27.5 pg (28.0-33.3); Mean Corpuscular Volume 84.5 fL (83.0-100.0); Mean Platelet Volume 11.5 fL (9.4-12.4); Platelet Count 53 K/mcL (140-400); Red Cell Distribution Width 14.5 % (11.5-14.5)
[2018-06-07 06:00] LABS: BUN/Creatinine Ratio 15 (6-26); Blood Urea Nitrogen 11 mg/dL (8-23); Calcium 7.9 mg/dL (8.6-10.3); Carbon Dioxide 28 mEq/L (23-29); Chloride 100 mEq/L (98-107); Glucose 191 mg/dL (70-105); Osmolality,Calculated 285 (280-300); Potassium 3.4 mEq/L (3.5-5.1); Sodium 135 mEq/L (136-145); eGFR For Non-African Americans > 60 (> 60)
[2018-06-07] MEDS ORDERED: Ondansetron ODT 4 MG TAB.RAPDIS SL PRN (08:14)
[2018-06-07] MEDS: Tiotropium 18 MCG inhalation IH SCH (08:33)
[2018-06-07] MEDS: OXYCODONE Oral CONC 10 MG/0.5 ML ORAL.SYG SL PRN (08:58)
[2018-06-07] MEDS ORDERED: Folic Acid 1 MG TABLET PO SCH (09:00)
[2018-06-07] MEDS ORDERED: Furosemide 20 MG TABLET PO SCH (09:00)
[2018-06-07] MEDS ORDERED: Thiamine (B-1) 100 MG TABLET PO SCH (09:00)
[2018-06-07] MEDS: Lactulose Oral Soln 20 GM/30 ML UDC PO SCH (09:01)
--- NOTE | 2018-06-07 09:33 | Discharge Summary ---
- NOTES TO OUTPATIENT PROVIDER Notes to Outpatient Provider: follow up with Dr. morrell- needs to have repeat endoscopy in 4 weeks. follow electrolyte levels. follow BP Date of Encounter: 06/07/18 Time of Encounter: 09:31 - Discharge Diagnosis (1) GIB (gastrointestinal bleeding) Priority: Primary Status: Acute Qualifiers: Gastritis type: chronic gastritis Qualified Code(s): K29.51 - Unspecified chronic gastritis with bleeding (2) Cirrhosis of liver with ascites Priority: Secondary Qualifiers: Hepatic cirrhosis type: unspecified hepatic cirrhosis Qualified Code(s): K74.60 - Unspecified cirrhosis of liver; R18.8 - Other ascites (3) Hepatitis C Priority: Secondary Status: Acute Qualifiers: Viral hepatitis chronicity: chronic Hepatic coma status: without hepatic coma Qualified Code(s): B18.2 - Chronic viral hepatitis C (4) Hyperammonemia Priority: Secondary Status: Acute (5) Portal hypertension with esophageal varices Priority: Secondary Status: Acute (6) UTI (urinary tract infection) Priority: Secondary Status: Acute Qualifiers: Urinary tract infection type: acute cystitis Hematuria presence: without hematuria Qualified Code(s): N30.00 - Acute cystitis without hematuria (7) Leukopenia Priority: Secondary Status: Chronic Qualifiers: Leukopenia type: unspecified Qualified Code(s): D72.819 - Decreased white blood cell count, unspecified (8) Hypoalbuminemia Priority: Secondary Status: Acute (9) Thrombocytopenia Priority: Secondary Status: Acute (10) Breast cancer Priority: Secondary Status: Chronic Qualifiers: Breast location: unspecified site of breast Estrogen receptor status: unspecified Patient sex: female Laterality: left Qualified Code(s): C50.912 - Malignant neoplasm of unspecified site of left female breast (11) COPD (chronic obstructive pulmonary disease) Priority: Secondary Status: Acute Qualifiers: COPD type: emphysema Emphysema type: unspecified Qualified Code(s): J43.9 - Emphysema, unspecified (12) Tobacco use Priority: Secondary Status: Acute (13) HTN (hypertension) Priority: Secondary Status: Acute Qualifiers: Hypertension type: essential hypertension Qualified Code(s): I10 - Essential (primary) hypertension (14) DVT prophylaxis Priority: Secondary Status: Acute (15) Rectal varices Priority: Secondary Status: Acute (16) Portal hypertensive gastropathy Priority: Secondary Status: Acute (17) Splenomegaly Priority: Secondary Status: Acute Hospital course: Ms. Brooke is a 63 year old female history of leukopenia, cirrhosis, hepatatis C infection from blood transfusion and breast cancer presented to [facility] with complaint of left upper quadrant pain. as per patietn her pain started about 3 days ago and has progressively worsening. it is located in the left upper quadrant, its cramping in nature. aggravated by movement and alleviated by laying still. denies abdominal trauma or similar symptoms in the past. in addition to LUQ pain she laso complains of blood mixed with her stools, she describes her stools as black with bright red blood on the stool. last BM was 2 days ago. she denies profuse bleeding, she is not on any blood thinners. denies hematemesis. In the ED CT abdomen and pelvis was done showing portal hypertension, varices and splenomegaly. Full report below. CBC showed normocytic anemia at baseline, luekopenia and thrombocytopenia. UA was positive for leukocyte esterase and she complained of dysuria. U tox was negative, Tylenol level was less than 10 and blood alcohol level was 12. She was started on IV fluids, nothing by mouth, octreotide drip and protonic strip was initiated and she was started on IV ceftriaxone for SBP prophylaxis along with urinary tract infection. GI was consulted and recommendations were followed. Overnight vital signs remained stable she was afebrile. On 06/06 she had endoscopy and colonoscopy performed by the GI team. Endoscopy showed grade 3 esophageal varices. An completely eradicated. Banded. Portal hypertensive gastropathy was also seen. She was started on not of all 40 mg a day which she tolerated. She was given a referral from the GI team for repeat endoscopy in 4 weeks. Colonoscopy was also performed on the same day which showed the entire examined colon was normal. A tattoo was seen in the ascending colon. The tattoo site appeared normal. Rectal varices were seen.. CBC was followed throughout admission H&H remained stable 12.1/37.2. Leukopenia resolved 5.7. Thrombocytopenia somewhat improved 53 dysuria resolved. other than left upper quadrant abdominal pain she did not have any abdominal pain in any other areas of her abdomen. Abdomen remained soft and negative for any rebound tenderness. MELD-Na 12, Child-Ferraro class B. Hep C with viral load on 5.9 million and genotype 1A/1B. Will complete workup and evaluation for treatment as outpatient. AFP 7 on 03/15/2018 she understands that she will need close follow up with GI with ultrasound of the liver every 6 months she was counseled on smoking cessation and refraining from alcohol use even if its socially Lifestyle Changes: 1. Total abstinence from alcohol including social drinking. 2. No smoking. 3. Gradual loss of weight. 4. Drink at least 3 cups of coffee due to its antioxidant effects in the liver, it reduces risk of HCC and advance fibrosis. 5. If needed, use less than 2 g/day of Tylenol (in divided doses). 6. Vaccination for Hep A, B, Pneumococcus if not already received and yearly influenza vaccination by PCP. 7. Avoid NSAIDS as can cause kidney damage. 8. Avoid benzodiazepines and other sedatives such as anti-histamines, narcotics etc. as can cause encephalopathy or confusion. 9. Take a late carbohydrate meal supplement as it reduces glucose production from protein breakdown and thus improves nutrition. 10. In cirrhosis, statins are safe to use and also improve portal hypertension and decrease risk of HCC. CT A/P 1 Redemonstration of findings of cirrhosis with portal hypertension including splenomegaly and ascites. Gastric varices and probable esophageal varices are also apparent. 2. No acute splenic abnormality is identified to explain the patient's left upper quadrant pain. 3. Suggestion of third-spacing of fluid with mild increased attenuation of the mesenteric and subcutaneous fat. Time spent discussing smoking cessation with patient: 3 to 10 minutes - Time Spent with Patient Total time spent providing and/or coordinating discharge services: Greater than 30 minutes (40) - Discharge Medications Prescriptions: Albuterol Neb [Proventil Neb] 2.5 mg IH [id number] PRN #1 inhsol PRN Reason: Dyspnea Ondansetron ODT [Zofran ODT] 4 mg SL Q6HR PRN #4 tab.rapdis PRN Reason: Nausea And Vomiting OXYCODONE Oral CONC [Oxycodone Oral Conc] 5 mg SL Q6HR PRN 2 Days #8 oral.syg PRN Reason: Severe Pain Atorvastatin [Lipitor] 10 mg PO HS #30 tablet Ciprofloxacin [Cipro] 500 mg PO DAILY #3 tablet Folic Acid 1 mg PO DAILY #30 tablet Furosemide [Lasix] 20 mg PO DAILY #30 tablet Lactulose 10 gm PO BID #60 udc Nadolol [Corgard] 40 mg PO DAILY #30 tablet Omeprazole [PriLOSEC] 20 mg PO DAILY@0730 #30 capsule. Spironolactone [Aldactone] 50 mg PO DAILY #30 tablet Thiamine (B-1) [Vitamin B-1] 100 mg PO DAILY #30 tablet Home Medications: Gabapentin [Neurontin] 300 mg PO BID #60 capsule 02/22/18 [Rx] Tiotropium [Spiriva] 18 mcg IH 0700 03/20/18 [History] Nicotine Patch [Nicoderm] 21 mg TD Q24H #30 patch.td24 03/23/18 [Rx] Albuterol Neb [Proventil Neb] 2.5 mg IH [id number] PRN #1 inhsol 06/07/18 [Rx] Atorvastatin [Lipitor] 10 mg PO HS #30 tablet 06/07/18 [Rx] Ciprofloxacin [Cipro] 500 mg PO DAILY #3 tablet 06/07/18 [Rx] Folic Acid 1 mg PO DAILY #30 tablet 06/07/18 [Rx] Furosemide [Lasix] 20 mg PO DAILY #30 tablet 06/07/18 [Rx] Lactulose 10 gm PO BID #60 udc 06/07/18 [Rx] Nadolol [Corgard] 40 mg PO DAILY #30 tablet 06/07/18 [Rx] OXYCODONE Oral CONC [Oxycodone Oral Conc] 5 mg SL Q6HR PRN 2 Days #8 oral.syg [Rx] Omeprazole [PriLOSEC] 20 mg PO DAILY@0730 #30 capsule. 06/07/18 [Rx] Ondansetron ODT [Zofran ODT] 4 mg SL Q6HR PRN #4 tab.rapdis 06/07/18 [Rx] Spironolactone [Aldactone] 50 mg PO DAILY #30 tablet 06/07/18 [Rx] Thiamine (B-1) [Vitamin B-1] 100 mg PO DAILY #30 tablet 06/07/18 [Rx] Allergies/Adverse Reactions: 3 Allergy/AdvReac Type Severity Reaction Status Date / Time aspirin Allergy Swelling Verified 06/04/18 19:48 of Lip/Tongue/Throat Date of admission: 06/06/18 11:14 Primary care physician: Zion Morgan - Constitutional Vitals: Temp Pulse Resp BP Pulse Ox 98.0 F 56 19 170/83 94 06/07/18 07:44 06/07/18 07:44 06/07/18 07:44 06/07/18 07:44 06/07/18 07:44 Exam: General: Patient is alert, oriented, no acute distress, Head: atraumatic, normocephalic, Eye: normal appearance, PERRL, no scleral icterus, no conjunctival injection ENT: mucous membranes moist, normal external ear exam Neck: normal inspection, trachea midline, full ROM, no carotid bruits Chest: normal inspection, symmetric chest rise, has left sided mastectomy scar. Respiratory: Good respiratory effort. Bilateral breath sounds are clear without wheezing, crackles, or rhonchi. Cardiovascular: Regular rate and rhythm. s1 and s2 No clicks, rubs, gallops, or murmors. Abdomen: Bowel sounds present normoactive x-4 quadrants. Abdomen is soft, distended. , no Epigastric tenderness. no rebound tenderness, does have LUQ pain on palpation, splenomegally, no peritoneal signs, no guarding, not firm. musculoskeletal: Spontaneously moving all extremities. no edema, no calf tenderness Skin: warm, dry, intact. Neuro: Alert and oriented x4. Sensation light touch intact. Cranial nerves 2- 12 is intact. Not aphasic, no focal deficit Psych: Patient's affect is normal - Patient Status Disposition: Home, Self-Care Condition: Undetermined Functional capacity at discharge: independent ambulation Overall status at discharge: patient is progressing back to baseline - Discharge Instructions Follow Up With: Zion Morgan [Primary Care Provider] - Gabrielle cMdaniel [Family Provider] - Ara Morrell MD [Partnered Physician] - Forms: ED Satisfaction Letter, Work/School Release - Diet and Activity Activity: increase activity as tolerated Diet: low salt diet - VTE Documentation of Mechanical Device: Intermittent pneumatic compression device
[2018-06-07 12:08] VITALS: BP 170/92
[2018-06-08] MEDS ORDERED: Folic Acid 1 MG TABLET PO SCH (09:00)
[2018-06-08] MEDS ORDERED: Thiamine (B-1) 100 MG TABLET PO SCH (09:00)
== END 2018-06-07 12:56 | disposition home or self-care (01) | DRG 432 ==
LOC: 2ANU 12:09 → EMEROOARM 12:09 → SUATTDRO 15:16 → 2ANU 15:58
PROVIDERS: ADMIT Internal Medicine; ATTEND Internal Medicine

== ENCOUNTER 2018-09-23 04:10 | Inpatient (IN) ==
[2018-09-23] MEDS ORDERED: Ondansetron 4 MG/2 ML VIAL IVP ONE (04:17)
[2018-09-23] MEDS ORDERED: Octreotide 50 MCG/ML SYRINGE IVP ONE (04:17)
[2018-09-23] MEDS ORDERED: Pantoprazole 80 MG in 0.9 % Sodium Chloride 50 ML IVPB ONE (04:17)
--- NOTE | 2018-09-23 04:24 | Emergency Department Note ---
Disposition Clinical Impression: Thrombocytopenia, Upper gastrointestinal hemorrhage Hematemesis Qualifiers: Nausea presence: with nausea Qualified Code(s): K92.0 - Hematemesis Disposition: Admitted As Inpatient Condition: Critical Time of Disposition: 06:10 GI Bleed HPI - General Stated complaint: Blood in Vomit Time Seen by Provider: 09/23/18 04:17 Source: patient Nursing Notes Reviewed: Yes Vital Signs Reviewed: Yes - History of Present Illness HPI Narrative: 63 yo female presents from home via EMS for cici hemetemesis. Onset 1 hour prior to arrival. EMS shows pictures of cici red blood with clots in a trash can and notes there was blood in the sink as well which was a large clot. Patient has had flu-like symptoms for the past 2 days described as chills, myalgia, sore throat. She had nausea this morning with several episodes of hemetemesis. She was afraid to go to sleep as she was previously told if she vomits blood she could . History of Hepatitis C from remote blood transfusion. Subsequent hepatic cirrhosis, portal hypertension, and ascites. Known esophageal varices which were banded at this facility in May. Also know thrombocytopenia secondary to cirrhosis. ROS: Pos: as above Neg: diarrhea, constipation, flank pain, back pain, dyspnea, weakness - Related Data Home Medications Medication Instructions Recorded Confirmed RX: Tiotropium [Spiriva] 18 mcg IH 0700 03/20/18 09/23/18 RX: Omeprazole [PriLOSEC] 20 mg PO DAILY PRN 09/23/18 09/23/18 Previous Rx's Medication Instructions Recorded RX: Nicotine Patch [Nicoderm] 21 mg TD Q24H #30 patch.td24 03/23/18 Atorvastatin [Lipitor] 10 mg PO HS #30 tablet 06/07/18 RX: Albuterol Neb [Proventil Neb] 2.5 mg IH [id number] PRN #1 inhsol 06/07/18 RX: Furosemide [Lasix] 20 mg PO DAILY #30 tablet 06/07/18 RX: Lactulose 10 gm PO BID #60 udc 06/07/18 RX: Ondansetron ODT [Zofran ODT] 4 mg SL Q6HR PRN #4 tab.rapdis 06/07/18 RX: Spironolactone [Aldactone] 50 mg PO DAILY #30 tablet 06/07/18 RX: Thiamine (B-1) [Vitamin B-1] 100 mg PO DAILY #30 tablet 06/07/18 Allergies Allergy/AdvReac Type Severity Reaction Status Date / Time aspirin Allergy Swelling Verified 09/23/18 12:40 of Lip/Tongue/Throat All systems ED: reviewed and negative except as stated. Review of Systems: As Per HPI Past Medical History - Past Medical History Medical history: Reports: cancer, COPD, CVA, hepatitis, hypertension, liver disease, TIA, other Surgical history: Reports: appendectomy, cholecystectomy Psychiatric history: Reports: no psych history - Social History Smoking Status: Current every day smoker Smokeless Tobacco Status: No Alcohol use: Reports: none Drug use: Reports: none Physical Exam Vital Signs Reviewed General: Patient is alert, oriented, and in mild distress from or hematemesis. No active vomiting at this time. Head: atraumatic, normocephalic Eye: normal appearance, no scleral icterus, no conjunctival injection ENT: mucous membranes moist, normal external ear exam Neck: normal inspection, trachea midline, full ROM Chest: normal inspection, symmetric chest rise Respiratory: Good respiratory effort. Bilateral breath sounds are clear without wheezing, crackles, or rhonchi. Cardiovascular: Regular rate and rhythm. No clicks, rubs, gallops, or murmors. Normal heart sounds. Abdomen: Bowel sounds present normoactive. Abdomen is soft, nondistended, and nontender. No guarding or rebound. Musculoskeletal: Spontaneously moving all extremities. Skin: warm, dry, intact. Neuro: GCS 15. No focal neurologic deficits observed. Psych: Patient's affect is appropriate for situation. - General General appearance: alert Course Course Narrative: Chart check: 06/06/18-upper GI endoscopy. Grade 3 varices and lower esophagus. 5 bands were placed at that time with incomplete eradication of varices. No bleeding. Severe portal hypertensive gastropathy in the entirety of the stomach. 06/06/18-noncontrast CT abdomen and pelvis. Radiology impression: CT/CT abd pelvis wo no iv no oral IMPRESSION: 1. Redemonstration of findings of cirrhosis with portal hypertension including splenomegaly and ascites. Gastric varices and probable esophageal varices are also apparent. 2. No acute splenic abnormality is identified to explain the patient's left upper quadrant pain. 3. Suggestion of third-spacing of fluid with mild increased attenuation of the mesenteric and subcutaneous fat. D/ / 06/04/2018 15:05:17 Beny Kulkarni MD / [email or web address] Interpreting Provider: Beny Kulkarni MD Intake vitals show patient is not hypotensive and not tachycardic. Lab workup including type and screen. Octreotide, Protonix, Zofran. Serum hematology service thrombocytopenia which is the patient's baseline. Serum chemistry is unremarkable. 05:15 I discussed the patient with on-call endoscopy, Dr. Sargent. The patient is currently hemodynamically stable. I wanted to let endoscopy no the patient's status, that she is here, and potentially will need urgent endoscopy depending on her clinical course. He requested I place a consult in for endoscopy so they may evaluate her in the morning. 17:45 Octreotide infusion just completed. Patient had hematemesis 1. Approximately 6-8 ounces. Liquid bright red blood. No clots. 18:00 I discussed the above with the admitting hospitalist, Dr. Black. With gastroenterology on board, he is agreeable to accept the patient. Given the patient's thrombocytopenia to 44, will transfuse one plasmapheresis. After speaking with blood bank, this is equal to a sixpack of platelets. Vital Signs Temperature 98.0 F 09/23/18 04:14 Pulse Rate 100 09/23/18 04:14 Respiratory Rate 20 09/23/18 04:14 Blood Pressure 162/106 09/23/18 04:14 O2 Sat by Pulse Oximetry 100 09/23/18 04:14 Temperature 98.0 F 09/23/18 04:14 Pulse Rate 95 09/23/18 05:17 Respiratory Rate 20 09/23/18 05:17 Blood Pressure 134/76 09/23/18 05:17 O2 Sat by Pulse Oximetry 97 09/23/18 05:17 Oxygen Delivery Oxygen Delivery Room Air GI Bleed - Lab Data Result diagrams: 09/23/18 17:45 09/23/18 04:42 Lab Results 09/23/18 09/23/18 09/23/18 Range/Units 04:42 04:42 04:42 WBC 6.4 (4.3-11.1) K/mcL RBC 4.29 (3.82-4.97) M/mcL Hgb 11.6 (11.5-15.4) g/dL Hct 36.4 (35.3-44.9) % MCV 84.8 (83.0-100.0) fL MCH 27.0 L (28.0-33.3) pg MCHC 31.9 (31.6-35.5) g/dL RDW 14.6 H (11.5-14.5) % Plt Count 44 L (140-400) K/mcL MPV 10.4 (9.4-12.4) fL Immature Gran % 0.5 (0-4) % Seg Neutrophils % 83.5 % Lymphocytes % 12.1 % Monocytes % 3.4 % Eosinophils % 0.2 % Basophils % 0.3 % Neutrophils # 5.3 (1.6-8.9) K/mcL Lymphocytes # 0.8 (0.6-4.6) K/mcL Monocytes # 0.2 (0.0-1.3) K/mcL Eosinophils # 0.0 (0.0-0.6) K/mcL Basophils # 0.0 (0.0-0.2) K/mcL Immature Plt Fraction 6.1 (1.1-6.1) % PT 17.9 H (9.4-12.1) Seconds INR 1.6 APTT 36.8 H (26.0-36.0) Seconds Sodium 136 (136-145) mEq/L Potassium 3.5 (3.5-5.1) mEq/L Chloride 105 (98-107) mEq/L Carbon Dioxide 26 (23-29) mEq/L BUN 13 (8-23) mg/dL Creatinine 0.54 L (0.60-1.20) mg/dL Est GFR ( Amer) > 60 (> 60) Est GFR (Non-Af Amer) > 60 (> 60) BUN/Creatinine Ratio 24 (6-26) Glucose 207 H (70-105) mg/dL Calculated Osmolality 288 (280-300) Calcium 8.6 (8.6-10.3) mg/dL Troponin I < 0.03 (< 0.04) ng/mL Lipase 7 L (11-82) Units/L Blood Type Antibody Screen 09/23/18 Range/Units 04:42 WBC (4.3-11.1) K/mcL RBC (3.82-4.97) M/mcL Hgb (11.5-15.4) g/dL Hct (35.3-44.9) % MCV (83.0-100.0) fL MCH (28.0-33.3) pg MCHC (31.6-35.5) g/dL RDW (11.5-14.5) % Plt Count (140-400) K/mcL MPV (9.4-12.4) fL Immature Gran % (0-4) % Seg Neutrophils % % Lymphocytes % % Monocytes % % Eosinophils % % Basophils % % Neutrophils # (1.6-8.9) K/mcL Lymphocytes # (0.6-4.6) K/mcL Monocytes # (0.0-1.3) K/mcL Eosinophils # (0.0-0.6) K/mcL Basophils # (0.0-0.2) K/mcL Immature Plt Fraction (1.1-6.1) % PT (9.4-12.1) Seconds INR APTT (26.0-36.0) Seconds Sodium (136-145) mEq/L Potassium (3.5-5.1) mEq/L Chloride (98-107) mEq/L Carbon Dioxide (23-29) mEq/L BUN (8-23) mg/dL Creatinine (0.60-1.20) mg/dL Est GFR ( Amer) (> 60) Est GFR (Non-Af Amer) (> 60) BUN/Creatinine Ratio (6-26) Glucose (70-105) mg/dL Calculated Osmolality (280-300) Calcium (8.6-10.3) mg/dL Troponin I (< 0.04) ng/mL Lipase (11-82) Units/L Blood Type O NEGATIVE Antibody Screen NEGATIVE Critical Care Time Critical Care Time: Yes Total Critical Care Time: 35 Attestation: Acute upper GI bleeding w/ hematemesis; recurrent hematemesis x 2 with h/o esophageal varices and thrombocytopenia; Attestation Statement - Attestation Attestation: Dr. Roca note: Patient seen in conjunction with resident Dr. Jovani Osuna. Please see his charting for complete documentation. I spent [id number] time with the patient and I agree with the patient's treatment and disposition. Patient has history of esophageal varices and had banding within the last few months. She said fever and body aches for the last few days and then began vomiting this morning. One episode of vomiting this morning that contained clots. One additional episode of vomiting in the ER that was clear to light red. Vital signs are s table. Hemoglobin is stable. Patient is given IV fluids, proton pump inhibitors, octreotide, and platelets in the ER. Admitted in stable and improved condition. Patient was stable at my time of departure from shift at 7 AM. Critical care time noted
[2018-09-23] MEDS ORDERED: cefTRIAXone 1,000 MG in Water for inj. (sterile) 20 ML 10 ML IVP ONE (04:30)
[2018-09-23] MEDS ORDERED: 0.9 % Sodium Chloride 1,000 ML IVC ONE (04:30)
[2018-09-23 04:57] LABS: Hematocrit 36.4 % (35.3-44.9); Immature Granulocytes % 0.5 % (0-4); Mean Corpuscular Volume 84.8 fL (83.0-100.0); Monocytes # 0.2 K/mcL (0.0-1.3); Monocytes % 3.4 %; Red Blood Count 4.29 M/mcL (3.82-4.97); Red Cell Distribution Width 14.6 % (11.5-14.5)
[2018-09-23 04:59] LABS: Basophils % 0.3 %; Eosinophils % 0.2 %; Hemoglobin 11.6 g/dL (11.5-15.4); Immature Platelets 6.1 % (1.1-6.1); Lymphocytes # 0.8 K/mcL (0.6-4.6); Lymphocytes % 12.1 %; Mean Corpuscular HGB Conc 31.9 g/dL (31.6-35.5); Mean Platelet Volume 10.4 fL (9.4-12.4); Neutrophils # 5.3 K/mcL (1.6-8.9); Platelet Count 44 K/mcL (140-400); Segmented Neutrophils % 83.5 %
[2018-09-23 05:04] LABS: INR 1.6; Prothrombin Time 17.9 Seconds (9.4-12.1)
[2018-09-23 05:07] LABS: Activated Partial Thrombo Time 36.8 Seconds (26.0-36.0)
[2018-09-23 05:17] LABS: BUN/Creatinine Ratio 24 (6-26); Blood Urea Nitrogen 13 mg/dL (8-23); Calcium 8.6 mg/dL (8.6-10.3); Carbon Dioxide 26 mEq/L (23-29); Chloride 105 mEq/L (98-107); Glucose 207 mg/dL (70-105); Lipase 7 Units/L (11-82); Osmolality,Calculated 288 (280-300); Potassium 3.5 mEq/L (3.5-5.1); Sodium 136 mEq/L (136-145); eGFR For Non-African Americans > 60 (> 60)
[2018-09-23 05:18] LABS: Troponin I < 0.03 ng/mL (< 0.04)
[2018-09-23] MEDS ORDERED: Metoclopramide 10 MG/2 ML VIAL IVP ONE (05:52)
[2018-09-23] MEDS ORDERED: 0.9 % Sodium Chloride 500 ML ONE (06:44)
[2018-09-23] MEDS ORDERED: *HR* Phytonadione 5 MG TABLET PO ONE (07:16)
[2018-09-23] MEDS ORDERED: Naloxone 0.4 MG/ML INJ IVP PRN (07:51)
--- NOTE | 2018-09-23 09:28 | Gastroenterology Consult Note ---
Date of Encounter: 09/23/18 Time of Encounter: 10:45 - Assessment and plan (1) Hematemesis Current Visit: Yes Status: Acute Assessment and plan: Nausea and episodic hematemesis overnight, secondary to varices Patient does have history of grade 3 varices status post 5 bands with incomplete eradication Also has history of severe portal hypertension gastropathy She was scheduled for follow-up EGD but was lost to follow-up Plan -EGD today with repeat banding -Maintain nothing by mouth tonight -Repeat H&H at 6 PM -Plan for DC tomorrow Qualifiers: Nausea presence: with nausea Qualified Code(s): K92.0 - Hematemesis (2) Portal hypertension with esophageal varices Current Visit: Yes Status: Acute Assessment and plan: Plan for EGD with banding today (3) Thrombocytopenia Current Visit: Yes Status: Acute Assessment and plan: Thrombocytopenia, platelet count 44 on arrival Patient did receive 1 unit of platelets in the ED due to hematemesis (4) Cirrhosis Current Visit: Yes Status: Chronic Assessment and plan: Cirrhosis secondary to hepatitis C following transfusion in the distant past Complicated by portal hypertension and varices along with thrombocytopenia Qualifiers: Hepatic cirrhosis type: unspecified hepatic cirrhosis Ascites presence: without ascites Qualified Code(s): K74.60 - Unspecified cirrhosis of liver (5) Hepatitis C Current Visit: No Status: Acute Assessment and plan: Chronic hepatitis C Qualifiers: Viral hepatitis chronicity: chronic Hepatic coma status: without hepatic coma Qualified Code(s): B18.2 - Chronic viral hepatitis C - Time Spent With Patient Total time spent is greater than 50% in coordination of care (as documented) at patient's floor/unit and/or counseling patient: GI History of Present Illness - Data of Consult Patient: known to practice within the last 3 years Consult date: 09/23/18 Requesting Physician: Jose Black MD - Consult Narrative Reason for consult: Hematemasis History of present illness: Ms. 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 The patient says that she has been having flulike symptoms for the past 2 days including chills, myalgias, sore throat, however at approximate 2 AM she began having cici hematemesis as well. She said that she felt half of bathroom base and trash can with cici blood and clots, and then also started to vomit into her sink and felt that as well. She said that this began premature out of no where she is not sure what caused it. She does have concerns that the fact that she has been coughing a lot is what caused it. She said that initially started while she was trying to lie down to sleep, and she felt that her head was feeling light and airy. She presents to the ED via EMS, and in the ED she had one more episode of hematemesis and has since resolved. She does say that she has been having some upper quadrant pain in both the left and right sides, but denies any melena to her knowledge. The patient does have history of cirrhosis with esophageal varices and severe gastritis. EGD on 06/06/2018 demonstrated grade 3 esophageal varices in the lower third of the esophagus. 5 bands were successfully placed with incomplete eradication of varices at that time. The patient was recommended to have a repeat endoscopy in 4 weeks, however she notes that she was never called for scheduling a repeat endoscopy. She also was scheduled to have follow-up with Dr. Parr, however she said that she was unable to do so because the family matters. In the ED the patient received 1 unit platelets, Rocephin, octreotide and Protonix drip. Colonoscopy: 06/06/18 EGD: 06/06/18 Past Med Surg Social Fam HX - Past Medical History Medical history: cancer, COPD, CVA, hepatitis, hypertension, liver disease, TIA, other Additional medical history: breast ca Psychiatric history: no psych history - Past Surgical History Surgical History: appendectomy, cholecystectomy Additional surgical history: left masectomy, lung surgeries (unsure type) - Social History Smoking Status: Current every day smoker Smokeless Tobacco Status: No Alcohol use: none Drug use: none - Family History Mother Adopted: No Living Status: Hx Family Cardiac Disorders: No Hx Family Respiratory Disorders: Yes Hx Family Cancer: Yes Hx Family GI Disorders: No Hx Family Endocrine Disorder: No Hx Family Neuromuscular Disorders: No Hx Family Neurologic Disorders: No Hx Family HEENT Disorders: No Hx Family Autoimmune Disorders: No Review of Systems: Constitutional: Denies fevers, chills, weight loss, generalized fatigue Head/Neck: Denies OWENS, neck stiffness EENT: Denies vision changes/blurriness, rhinorrhea. Admits to sore throat, congestion CVS: Denies chest pain, palpitations, WEIR, orthopnea, edema, PND Pulm: Denies SOB, sputum, hemoptysis, wheezing. Admits to cough GI: Denies nausea, diarrhea, constipation, melena. Admits to hematemsis, nausea, abdominal pain : Denies dysuria, increased frequency, urgency, hematuria Heme: Denies ease of bleeding or bruising MSK: Denies joint pain, limited ROM Skin: Denies rashes, ulcers, color changes Neuro: Denies OWENS, paresthesias, focal deficits, ataxia - Constitutional Vitals: Temp Pulse Resp BP Pulse Ox 97.9 F 75 18 136/78 95 09/23/18 07:47 09/23/18 07:47 09/23/18 07:47 09/23/18 07:47 09/23/18 07:47 Exam: Gen: Vitals noted. No acute distress. Eyes: anicteric sclerae, moist conjunctivae; no lid-lag; Pupils equal and reactive to light HENT: Atraumatic; oropharynx clear with moist mucous membranes and no mucosal ulcerations; normal hard and soft palate Neck: Trachea midline; supple, no thyromegaly or lymphadenopathy Cardiac: RRR, no murmur, +S1/S2 Pulmonary: Poor inspiratory effort, diminished in the bases b/l Abdomen: soft, tender in the epigastric region, no guarding. No masses or hepatosplenomegaly MSK: ROM intact, no joint swelling noted Extremities: no BLE edema, nontender calf, no cyanosis or clubbing Skin: Normal temperature, turgor and texture; no rash, ulcers or subcutaneous nodules Neuro: moves all extremities, no focal deficits. Psych: Appropriate mood and behavior. A&Ox3 Results - Labs CBC & Chem 7: 09/23/18 12:54 09/23/18 04:42 Labs: Last Result Calcium 8.6 mg/dL (8.6-10.3) 09/23/18 04:42 Troponin I < 0.03 ng/mL (< 0.04) 09/23/18 04:42 Entire Visit Hgb 11.6 g/dL (11.5-15.4) 09/23/18 04:42 Hct 36.4 % (35.3-44.9) 09/23/18 04:42 PT 17.9 Seconds (9.4-12.1) H 09/23/18 04:42 Lipase 7 Units/L (11-82) L 09/23/18 04:42 - ABG ABG results: PT/INR, D-dimer PT 17.9 Seconds (9.4-12.1) H 09/23/18 04:42 Consult Discharge Plan - Plan Referrals: NONE,PCP [Primary Care Provider] -
--- NOTE | 2018-09-23 09:53 | Internal Med History&Physical ---
Addendum entered and electronically signed by Kendrick Armenta DO 09/23/18 10:18: On physical exam patient has left-sided mastectomy with well-healed scars. - Avoid IV and lab draws out of left upper extremity Original Note: <KathiKendrick Monroe - Last Filed: 09/23/18 09:48> Date of Encounter: 09/23/18 Time of Encounter: 09:48 Internal Medicine - H&P: HPI Chief complaint: vomiting blood Admitted From: Home Plans for Post Hospital Care: Home History of present illness: Ms. Brooke is a 63 year old female past mental history of hepatitis C, thrombocytopenia, cirrhosis with stage III esophageal and gastric varices, previous breast cancer with mastectomy roughly 2 years ago, COPD presents emergency department with vomiting blood clots. Ms. Brooke states that she has been sick with the flu for the last several days and started having vomiting after dinner last night. Initially she was just vomiting up food around 2 AM she started vomiting up blood and an blood clots. She became concerned because she was recently told roughly 4 months ago that she started vomiting blood that it could be very dangerous and she could from this. She had a couple more episodes of vomiting blood clots which concerned her greatly and she called EMS who brought her to the emergency department. She states that she was feeling just kind of weak and tired and recently developed dizziness this morning after vomiting up blood. She denies taking any medications, change of medications, change in diet. She does have a history of blood in her stools but denies any noticeable black tarry stool, bright red blood in her stools in the last several weeks. Past Med Surg Social Fam HX - Past Medical History Medical history: cancer, COPD, CVA, hepatitis, hypertension, liver disease, TIA, other Additional medical history: breast ca Psychiatric history: no psych history - Past Surgical History Surgical History: appendectomy, cholecystectomy Additional surgical history: left masectomy, lung surgeries (unsure type) - Social History Smoking Status: Current every day smoker Smokeless Tobacco Status: No Alcohol use: none Drug use: none - Family History Mother Adopted: No Living Status: Hx Family Cardiac Disorders: No Hx Family Respiratory Disorders: Yes Hx Family Cancer: Yes Hx Family GI Disorders: No Hx Family Endocrine Disorder: No Hx Family Neuromuscular Disorders: No Hx Family Neurologic Disorders: No Hx Family HEENT Disorders: No Hx Family Autoimmune Disorders: No Internal Medicine - H&P: Meds Gabapentin [Neurontin] 300 mg PO BID #60 capsule 02/22/18 [Rx] Tiotropium [Spiriva] 18 mcg IH 0700 03/20/18 [History] Nicotine Patch [Nicoderm] 21 mg TD Q24H #30 patch.td24 03/23/18 [Rx] Albuterol Neb [Proventil Neb] 2.5 mg IH [id number] PRN #1 inhsol 06/07/18 [Rx] Atorvastatin [Lipitor] 10 mg PO HS #30 tablet 06/07/18 [Rx] Ciprofloxacin [Cipro] 500 mg PO DAILY #3 tablet 06/07/18 [Rx] Folic Acid 1 mg PO DAILY #30 tablet 06/07/18 [Rx] Furosemide [Lasix] 20 mg PO DAILY #30 tablet 06/07/18 [Rx] Lactulose 10 gm PO BID #60 udc 06/07/18 [Rx] Nadolol [Corgard] 40 mg PO DAILY #30 tablet 06/07/18 [Rx] OXYCODONE Oral CONC [Oxycodone Oral Conc] 5 mg SL Q6HR PRN 2 Days #8 oral.syg 06/07/18 [Rx] Omeprazole [PriLOSEC] 20 mg PO DAILY@0730 #30 capsule. 06/07/18 [Rx] Ondansetron ODT [Zofran ODT] 4 mg SL Q6HR PRN #4 tab.rapdis 06/07/18 [Rx] Spironolactone [Aldactone] 50 mg PO DAILY #30 tablet 06/07/18 [Rx] Thiamine (B-1) [Vitamin B-1] 100 mg PO DAILY #30 tablet 06/07/18 [Rx] Allergy/AdvReac Type Severity Reaction Status Date / Time aspirin Allergy Swelling Verified 06/04/18 19:48 of Lip/Tongue/Throat All Systems PM: A 10-system review of systems was performed and is negative for pertinent findings except as documented above in the HPI. - Constitutional Constitutional: fatigue, malaise, weakness, no excessive sweating, no fever(s), no night sweats, no weight gain - EENT Eyes: no blurry vision, no dry eye Nose, mouth and throat: no dry mouth - Breasts Breasts: no change in shape - Cardiovascular Cardiovascular ROS IM: no chest pain, no diaphoresis, no dyspnea, no dyspnea on exertion, no edema - Respiratory Respiratory: cough, no dyspnea - Gastrointestinal Gastrointestinal: abdominal pain, bloating, dyspepsia, dysphagia, hematemesis, nausea, vomiting, no change in bowel habits, no change in stool character, no coffee ground emesis, no constipation, no cramping, no diarrhea, no hematochezia, no loose stools, no melena - Genitourinary Genitourinary: no difficulty voiding - Neurological Neurological ROS: disequilibrium, dizziness, no focal weakness - Constitutional Vitals: Temp Pulse Resp BP Pulse Ox 97.9 F 75 18 136/78 95 09/23/18 07:47 09/23/18 07:47 09/23/18 07:47 09/23/18 07:47 09/23/18 07:47 Exam: Gen. alert awake oriented interactive in no acute distress AO 3 HEENT normocephalic, atraumatic, pupils equal reactive, nasal cavity patent open oral mucosa dry, neck supple trachea midline no lymphadenopathy appreciated Cardiac regular rate rhythm positive S1-S2 no murmurs or gallops appreciated, radial pulses 2+ bilateral, tibial pulses 2+ bilateral Respiratory clear to auscultation bilateral no crackles wheezes or rhonchi Abdomen soft mild tenderness to palpation of the epigastric region, positive bowel sounds Extremities symmetric bilateral, patient has clubbing of all digits Internal Med - H&P Results - Labs CBC & Chem 7: 09/23/18 04:42 09/23/18 04:42 Labs: Short CBC 09/23/18 Range/Units 04:42 WBC 6.4 (4.3-11.1) K/mcL Hgb 11.6 (11.5-15.4) g/dL Hct 36.4 (35.3-44.9) % Plt Count 44 L (140-400) K/mcL Neutrophils # 5.3 (1.6-8.9) K/mcL BMP 09/23/18 04:42 Sodium 136 Potassium 3.5 Chloride 105 Carbon Dioxide 26 BUN 13 Creatinine 0.54 L Glucose 207 H Calcium 8.6 Cardiac Enzymes 09/23/18 Range/Units 04:42 Troponin I < 0.03 (< 0.04) ng/mL - Assessment and plan (1) GIB (gastrointestinal bleeding) Current Visit: No Status: Acute Assessment and plan: 63-year-old female with known cirrhosis secondary to hepatitis C with known stage III varices of the esophagus and gastric cavity. Started having hematemesis with blood clots around 3 AM. Most recent EGD performed May 2018 demonstrating stage III esophageal varices that were required banding at that time - Thrombocytopenia which is chronic likely secondary to cirrhosis - Currently vitals are stable, continue to hourly monitoring - Patient has received sixpack platelets - Gastroenterology consulted - Q6hr hemoglobin monitoring - Lactated Ringer's x2 bag bolus - We will likely require move to a higher level of care Qualifiers: Gastritis type: chronic gastritis Qualified Code(s): K29.51 - Unspecified chronic gastritis with bleeding (2) Thrombocytopenia Current Visit: Yes Status: Acute Assessment and plan: Chronic, platelets 44 on admission. - Patient receiving platelet transfusion in the setting of hematemesis with known stage III gastroesophageal varices - Monitor daily (3) Hypertension Current Visit: No Status: Chronic Assessment and plan: Hold all antihypertensive medications the setting of acute gastroesophageal bleeding with the possibility of significant volume loss Qualifiers: Hypertension type: essential hypertension Qualified Code(s): I10 - Essential (primary) hypertension (4) Hepatitis C Current Visit: No Status: Acute Assessment and plan: Chronic history of hepatitis C with liver cirrhosis Qualifiers: Viral hepatitis chronicity: chronic Hepatic coma status: without hepatic coma Qualified Code(s): B18.2 - Chronic viral hepatitis C (5) COPD (chronic obstructive pulmonary disease) Current Visit: No Status: Acute Assessment and plan: Chronic history COPD with clinical findings of digital clubbing - Dual nebs and symptom management currently stable. Qualifiers: COPD type: emphysema Emphysema type: unspecified Qualified Code(s): J43.9 - Emphysema, unspecified (6) Portal hypertension with esophageal varices Current Visit: No Status: Acute Assessment and plan: Known history of stage III gastroesophageal varices recent banding in May 2018 - Follows up [facility] who are consult at this time (7) DVT prophylaxis Current Visit: No Status: Acute Assessment and plan: No anticoagulation the setting of GI bleeding -SCDs - Time Spent With Patient Total time spent is greater than 50% in coordination of care (as documented) at patient's floor/unit and/or counseling patient: <Geraldine Bee - Last Filed: 09/23/18 10:50> Date of Encounter: 09/23/18 Time of Encounter: 09:00 Internal Medicine - H&P: HPI Admitted From: Emergency Dept Plans for Post Hospital Care: Home History of present illness: Ms. Brooke is a 63 year old female All Systems PM: A 10-system review of systems was performed and is negative for pertinent findings except as documented above in the HPI. - Constitutional Vitals: Temp Pulse Resp BP Pulse Ox 98.4 F 77 16 151/77 97 09/23/18 10:10 09/23/18 10:10 09/23/18 10:10 09/23/18 10:10 09/23/18 10:10 Internal Med - H&P Results - Labs CBC & Chem 7: 09/23/18 04:42 09/23/18 04:42 Labs: Short CBC 09/23/18 Range/Units 04:42 WBC 6.4 (4.3-11.1) K/mcL Hgb 11.6 (11.5-15.4) g/dL Hct 36.4 (35.3-44.9) % Plt Count 44 L (140-400) K/mcL Neutrophils # 5.3 (1.6-8.9) K/mcL BMP 09/23/18 04:42 Sodium 136 Potassium 3.5 Chloride 105 Carbon Dioxide 26 BUN 13 Creatinine 0.54 L Glucose 207 H Calcium 8.6 Cardiac Enzymes 09/23/18 Range/Units 04:42 Troponin I < 0.03 (< 0.04) ng/mL - Time Spent With Patient Total time spent is greater than 50% in coordination of care (as documented) at patient's floor/unit and/or counseling patient: - Attending Attestation I saw evaluated and examined this patient and my medical decision-making was reviewed with the Resident Physician, Kendrick Armenta. I agree with the documented findings, disposition and treatment plan as described except to any changes set forth below. We independently had [id number] contact with the patient. 63-year-old female patient with a history of hepatitis, portal hypertension and esophageal varices who had variceal bleeding that was clipped earlier this year presented to the ER with complaints of nausea and vomiting blood. Patient's symptoms began earlier this morning. She reports that she vomited a lot of blood with clots while at home and once after coming to the ER here. Since then she has felt nauseated and lightheaded. She denies any fevers or chills. No chest pain or palpitations. General: Patient is alert, no acute distress, oriented x 3 Chest: normal inspection, symmetric chest rise Respiratory: Good respiratory effort. Normal breath sounds. No wheezing or crackles. Cardiovascular: Regular rate and rhythm. s1 and s2 normal No clicks, rubs, gallops, or murmurs. No pedal edema Abdomen: Abdomen is soft, distended, generalized tenderness. Bowel sounds are present Musculoskeletal: Spontaneously moving all extremities Skin: warm, dry, intact Neuro: Alert oriented x 3 normal cranial nerves, no focal deficits Psych: Patient's affect is flat Acute hematemesis/upper GI bleed: Monitor blood counts closely. Patient has low platelets and has been transfused 1 unit of platelets. We will monitor his H&H. Keep nothing by mouth. IV Protonix and octreotide drips. Consult GI. High risk for complications due to possible variceal bleed. Patient did have grade 3 esophageal varices and had 5 bands placed with incomplete eradication of varices. Patient had been recommended another repeat EGD in 4-6 weeks but this had not yet been done. If patient has more episodes of emesis, we will transfe r her to stepdown unit for further management. Cirrhosis of the liver with portal hypertension and thrombocytopenia: Supportive care. Continue home medications including lactulose and at [place] once patient is able to take oral medications. Avoid heparin products. Patient will receive 1 unit platelets. Also received vitamin K for prolonged INR and INR was 1.6. Essential hypertension: Holding meds as patient is nothing by mouth. Will treat with intravenous medications if his BP greater than 160. COPD: Not in acute exacerbation. Bronchodilators as needed. DVT prophylaxis with SCDs
[2018-09-23] MEDS: Pantoprazole 40 MG in 0.9 % Sodium Chloride Mini Bag 100 ML IVC SCH ×3 (10:01→18:54)
[2018-09-23] MEDS: Ringers Solution, Lactated 1,000 ML IVC SCH ×2 (10:01→16:59)
[2018-09-23] MEDS ORDERED: Ondansetron 4 MG/2 ML VIAL IVP PRN (10:07)
[2018-09-23] MEDS ORDERED: Dextrose Gel 15 GM/37.5 ML TUBE PO PRN ×2 (10:17)
[2018-09-23] MEDS ORDERED: D5% in Water 1,000 ML IVC PRN (10:17)
[2018-09-23] MEDS ORDERED: *HR* Dextrose 50 % in Water (Syg) 50 ML SYRINGE IVP PRN (10:17)
[2018-09-23] MEDS: Octreotide 400 MCG in 0.9 % Sodium Chloride 100 ML IVC SCH (11:02)
[2018-09-23] MEDS: Insulin LISPRO 300 UNITS/3 ML VIAL SQ SCH ×3 (11:29→20:45)
--- NOTE | 2018-09-23 11:47 | Anesthesia Evaluation PreOp ---
Date of Encounter: 09/23/18 Time of Encounter: 13:11 - Past History Planned Operation: EGD Cardiac History: HTN, Hyperlipidemia Pulmonary History: Smoker (40 years), COPD, [address] [employer] History: CVA (residual right arm weakness), TIA Other Medical History: Hepatic (hepatitis C, cirrhosis, portal HTN, ascites), Other (thrombocytopenia, breast CA S/P left mastectomy with lymph nodes) Anesthesia History: No Prior Anesthetic Complications, Past Anesthesia Alcohol Use: none (H/O heavy EtOh use 15 years ago) Drug use: none Medications and Allergies Tiotropium [Spiriva] 18 mcg IH 0700 03/20/18 [History] Nicotine Patch [Nicoderm] 21 mg TD Q24H #30 patch.td24 03/23/18 [Rx] Albuterol Neb [Proventil Neb] 2.5 mg IH [id number] PRN #1 inhsol 06/07/18 [Rx] Atorvastatin [Lipitor] 10 mg PO HS #30 tablet 06/07/18 [Rx] Furosemide [Lasix] 20 mg PO DAILY #30 tablet 06/07/18 [Rx] Lactulose 10 gm PO BID #60 udc 06/07/18 [Rx] Ondansetron ODT [Zofran ODT] 4 mg SL Q6HR PRN #4 tab.rapdis 06/07/18 [Rx] Spironolactone [Aldactone] 50 mg PO DAILY #30 tablet 06/07/18 [Rx] Thiamine (B-1) [Vitamin B-1] 100 mg PO DAILY #30 tablet 06/07/18 [Rx] Omeprazole [PriLOSEC] 20 mg PO DAILY PRN 09/23/18 [History] Allergy/AdvReac Type Severity Reaction Status Date / Time aspirin Allergy Swelling Verified 09/23/18 12:40 of Lip/Tongue/Throat - Meds/Allergy Pre-op Review Medications Reviewed: Yes Allergies Reviewed: Yes Beta Blockers on Current Med List: Yes If Beta Blockers taken, Date/Time (Last Dose taken): 09/19/2018 Anesthesia Results - Labs 09/23/18 12:54 09/23/18 04:42 - Imaging EKG: report reviewed (06/04/2018 SINUS RHYTHM MODERATE VOLTAGE CRITERIA FOR LVH, CONSIDER NORMAL VARIANT) Anesthesia Exam Vital Signs/O2 Sat/Glucose, Most Recent Temp Pulse Resp BP Pulse Ox 97.8 F 76 18 136/79 99 09/23/18 12:08 09/23/18 12:08 09/23/18 12:08 09/23/18 13:01 09/23/18 12:08 Blood Glucose* 124 Height: 5'9''/1.75m Weight: 187 lbs/85 kg NPO (# of Hours): 8 Pain Scale: 8 (headache) Pain Scale Used: Numeric (1 - 10) - HEENT Pupil (Motor): EOMI Mallampati: II Teeth: Normal, Missing Denture Type: Upper: Complete, Lower: Partial Oral Opening: Greater than [address] - [address] PASSENGER FIRER LOC: Oriented ROAD PASSENGER [employer]ER Motor: Normal LUE, Normal RLE, Normal LLE, Normal Face, Deficit RUE ROAD P[employer]GER [employer]ER Sensory: Normal: RUE, LUE, RLE, LLE, Face - Cardiac Rhythm: Regular Murmur: None - Pulmonary Breath Sounds: bilateral Clear Respiratory Effort: Symmetrical Anesthesia Assess/Plan ASA Score: 4 Level of consciousness: Cooperative, Oriented, Tranquil Anesthetic Plan: MAC Monitoring Plan: Standard Monitors
[2018-09-23] MEDS ORDERED: *HR* Propofol 200 MG/20 ML VIAL IVP ONE (12:52)
[2018-09-23] MEDS ORDERED: Lidocaine -MPF 2% 2 ML VIAL ONE (12:54)
[2018-09-23 13:13] LABS: Hematocrit 29.6 % (35.3-44.9)
[2018-09-23 13:20] LABS: Hemoglobin 9.7 g/dL (11.5-15.4)
[2018-09-23] MEDS ORDERED: Albuterol 2.5 MG/3 ML NEBULIZER ONE (14:24)
[2018-09-23 15:01] LABS: Estimated Average Glucose 103 mg/dl; Hemoglobin A1C 5.2 %
[2018-09-23] MEDS: Sucralfate 1 GM TABLET PO SCH ×2 (15:36→23:02)
[2018-09-23] MEDS: OXYCODONE Oral CONC 10 MG/0.5 ML ORAL.SYG SL PRN ×2 (15:36→23:12)
--- NOTE | 2018-09-23 15:37 | Electrocardiograph Report ---
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
[2018-09-23 16:56] LABS: % Iron Saturation 18 % (15-50); C-Reactive Protein 37 mg/L (Less than 10); Iron 50 mcg/dL (50-170); Transferrin 197 mg/dL (203-362)
[2018-09-23 17:35] LABS: Ferritin 77 ng/mL (10-120)
[2018-09-23 18:14] LABS: Hematocrit 25.5 % (35.3-44.9); Hemoglobin 8.4 g/dL (11.5-15.4)
[2018-09-24] MEDS: Pantoprazole 40 MG in 0.9 % Sodium Chloride Mini Bag 100 ML IVC SCH ×5 (00:51→21:51)
[2018-09-24] MEDS: Octreotide 400 MCG in 0.9 % Sodium Chloride 100 ML IVC SCH ×2 (01:34→12:38)
[2018-09-24 01:42] LABS: Hematocrit 28.4 % (35.3-44.9)
[2018-09-24] MEDS: Ringers Solution, Lactated 1,000 ML IVC SCH ×3 (01:53→23:44)
--- NOTE | 2018-09-24 06:00 | Event Note ---
Date of Encounter: 09/23/18 Time of Encounter: 22:20 Notified by nurse of patient vomiting dark red colored vomit, however also reports eating red jello. Vitals stable. Dr Mack went to see patient and ordered her NPO and H/H which resulted as improved from last. Nurses ordered to continue to monitor vitals and for any additional episodes of vomiting. Patient had additional episode of small amount of dark red vomit. Vitals continue to be stable. Repeat labs pending for this morning.
[2018-09-24 07:13] LABS: BUN/Creatinine Ratio 29 (6-26); Blood Urea Nitrogen 14 mg/dL (8-23); Calcium 8.1 mg/dL (8.6-10.3); Carbon Dioxide 23 mEq/L (23-29); Chloride 106 mEq/L (98-107); Glucose 158 mg/dL (70-105); Osmolality,Calculated 286 (280-300); Potassium 3.7 mEq/L (3.5-5.1); Sodium 136 mEq/L (136-145); eGFR For Non-African Americans > 60 (> 60)
[2018-09-24 07:21] LABS: Monocytes % 5.3 %
[2018-09-24 07:23] LABS: Basophils % 0.8 %; Eosinophils % 0.5 %; Hematocrit 28.2 % (35.3-44.9); Hemoglobin 8.8 g/dL (11.5-15.4); Immature Granulocytes % 0.5 % (0-4); Immature Platelets 4.5 % (1.1-6.1); Lymphocytes # 0.9 K/mcL (0.6-4.6); Lymphocytes % 23.8 %; Mean Corpuscular HGB Conc 31.2 g/dL (31.6-35.5); Mean Corpuscular Hemoglobin 26.9 pg (28.0-33.3); Mean Corpuscular Volume 86.2 fL (83.0-100.0); Mean Platelet Volume 11.2 fL (9.4-12.4); Monocytes # 0.2 K/mcL (0.0-1.3); Neutrophils # 2.6 K/mcL (1.6-8.9); Red Blood Count 3.27 M/mcL (3.82-4.97); Red Cell Distribution Width 14.6 % (11.5-14.5); Segmented Neutrophils % 69.1 %
[2018-09-24 07:49] LABS: Platelet Count 46 K/mcL (140-400)
[2018-09-24] MEDS: Insulin LISPRO 300 UNITS/3 ML VIAL SQ SCH ×4 (08:22→21:55)
[2018-09-24] MEDS: Sucralfate 1 GM TABLET PO SCH ×4 (08:40→21:55)
[2018-09-24] MEDS: OXYCODONE Oral CONC 10 MG/0.5 ML ORAL.SYG SL PRN ×2 (08:46→15:28)
--- NOTE | 2018-09-24 11:06 | Gastroenterology Progress Note ---
Date of Encounter: 09/24/18 Time of Encounter: 11:03 - Assessment and plan (1) Portal hypertension with esophageal varices Current Visit: Yes Status: Acute Assessment and plan: Nausea and episodic hematemesis overnight, secondary to varices Patient does have history of grade 3 varices status post 5 bands with incomplete eradication Also has history of severe portal hypertension gastropathy EGD yesterday demonstrated varices requiring banding 3 Patient tolerated the procedure well Hemoglobin remains stable, increased from 8.4 -> 9.0 Recommendations -Patient should begin nadolol 20mg HS at home -Continue Carafate 1g PO QID -Follow-up with GI clinic on 10/02/18 at 3:10pm -Return to ED for continued hematemasis or melena (2) Thrombocytopenia Current Visit: Yes Status: Acute Assessment and plan: Thrombocytopenia, platelet count 44 on arrival Patient did receive 1 unit of platelets in the ED due to hematemesis (3) Cirrhosis Current Visit: Yes Status: Chronic Assessment and plan: Cirrhosis secondary to hepatitis C following transfusion in the distant past Complicated by portal hypertension and varices along with thrombocytopenia Qualifiers: Hepatic cirrhosis type: unspecified hepatic cirrhosis Ascites presence: without ascites Qualified Code(s): K74.60 - Unspecified cirrhosis of liver (4) Hepatitis C Current Visit: No Status: Acute Assessment and plan: Chronic hepatitis C Qualifiers: Viral hepatitis chronicity: chronic Hepatic coma status: without hepatic coma Qualified Code(s): B18.2 - Chronic viral hepatitis C - Time Spent With Patient Total time spent is greater than 50% in coordination of care (as documented) at patient's floor/unit and/or counseling patient: - Subjective Interval history: Patient is resting comfortably in bed at time of examination. She is status post EGD yesterday, and she has had no complications. She did apparently have one episode of vomiting overnight with dark red material, although it was noted that the patient was having red Jell-O yesterday so is questionable as to whether or not there was blood in this material. She otherwise has had no acute drops in her hemoglobin and seems to be recovering well. - Constitutional Vitals: Temp Pulse Resp BP Pulse Ox 97.7 F 71 18 157/86 96 09/24/18 08:04 09/24/18 08:04 09/24/18 08:04 09/24/18 08:04 09/24/18 08:04 Exam: Gen: Vitals noted. No acute distress. Eyes: anicteric sclerae, moist conjunctivae; no lid-lag; Pupils equal and reactive to light HENT: Atraumatic; oropharynx clear with moist mucous membranes and no mucosal ulcerations; normal hard and soft palate Neck: Trachea midline; supple, no thyromegaly or lymphadenopathy Cardiac: RRR, no murmur, +S1/S2 Pulmonary: Poor inspiratory effort, diminished in the bases b/l Abdomen: soft, tender in the epigastric region, no guarding. No masses or hepatosplenomegaly MSK: ROM intact, no joint swelling noted Extremities: no BLE edema, nontender calf, no cyanosis or clubbing Skin: Normal temperature, turgor and texture; no rash, ulcers or subcutaneous nodules Neuro: moves all extremities, no focal deficits. Psych: Appropriate mood and behavior. A&Ox3 Results - Labs CBC & Chem 7: 09/24/18 06:29 09/24/18 06:29 Labs: Last Result ESR 27 mm/hr (0-15) H 09/23/18 16:13 Calcium 8.1 mg/dL (8.6-10.3) L 09/24/18 06:29 Iron 50 mcg/dL (50-170) 09/23/18 16:13 % Saturation 18 % (15-50) 09/23/18 16:13 Transferrin 197 mg/dL (203-362) L 09/23/18 16:13 Ferritin 77 ng/mL (10-120) 09/23/18 16:13 Troponin I < 0.03 ng/mL (< 0.04) 09/23/18 04:42 C-Reactive Protein 37 mg/L (Less than 10) H 09/23/18 16:13 Entire Visit Hgb 8.8 g/dL (11.5-15.4) L 09/24/18 06:29 Hct 28.2 % (35.3-44.9) L 09/24/18 06:29 PT 17.9 Seconds (9.4-12.1) H 09/23/18 04:42 Ferritin 77 ng/mL (10-120) 09/23/18 16:13 Lipase 7 Units/L (11-82) L 09/23/18 04:42 - ABG ABG results: PT/INR, D-dimer PT 17.9 Seconds (9.4-12.1) H 09/23/18 04:42 Consult Discharge Plan - Plan Referrals: NONE,PCP [Primary Care Provider] -
[2018-09-24] MEDS ORDERED: OXYCODONE Oral CONC 10 MG/0.5 ML ORAL.SYG SL ONE (18:24)
--- NOTE | 2018-09-25 00:25 | Internal Med Progress Note ---
Hospitalist Progress Note - Encounter Date of Encounter: 09/24/18 Time of Encounter: 19:00 - Subjective Interval History: SUBJECTIVE: The patient had banding of bleeding esophageal varices yesterday. She is on IV Sandostatin and IV Protonix drip. She does have mild pain when swallowingin the lower portion of his esophagus. Denies difficulty breathing, coughing and wheezing. OBJECTIVE: Skin: Free of rash and discoloration. ENMT: Oral/pharyngeal mucosa is normal in appearance. Eyes: Sclera is white. There is no discharge from eyes. Respiratory: Normal breath sounds; no crackles or wheezes. CV: Heart is regular; no gallop or murmur. GI: Abdomen is soft and not tender. There is no palpable mass or visceromegaly. Neuro: There is no focal deficits. ADDITIONAL DATA: Hemoglobin is 9.0; 8.4 yesterday. Her platelet count from yesterday was 44,000. BMP is normal. ASSESSMENT AND PLAN: Portal hypertension with esophageal varices secondary to liver cirrhosis secondary to hepatitis C (chronic). Thrombocytopenia secondary to liver cirrhosis. We appreciate help from GI service. They did banding of bleeding esophageal varices. To continue IV Sandostatin/IV Protonix. Will advance her diet to mechanical soft. We will check her CBC in the morning. DISPOSITION: Discharge her tomorrow home, if stable. - Exam Vitals: Temp Pulse Resp BP Pulse Ox 98.7 F 77 16 145/82 89 09/24/18 23:58 09/24/18 23:58 09/24/18 23:58 09/24/18 23:58 09/24/18 23:58 Exam: xx - Assessment and Plan (1) Portal hypertension with esophageal varices Current Visit: Yes Status: Acute (2) Cirrhosis Current Visit: Yes Status: Chronic (3) Hepatitis C Current Visit: Yes Status: Chronic (4) Thrombocytopenia Current Visit: Yes Status: Acute - Time Spent with Patient Total time spent is greater than 50% in coordination of care (as documented) at patient's floor/unit and/or counseling patient: 25 - 35 minutes Plan of Care Discussed with: patient Internal Medicine: Result - Labs CBC & Chem 7: 09/24/18 06:29 09/24/18 06:29 Labs: Short CBC 09/24/18 09/24/18 Range/Units 00:24 06:29 WBC 3.8 L (4.3-11.1) K/mcL Hgb 9.0 L 8.8 L (11.5-15.4) g/dL Hct 28.4 L 28.2 L (35.3-44.9) % Plt Count 46 L (140-400) K/mcL Neutrophils # 2.6 (1.6-8.9) K/mcL BMP 09/24/18 06:29 Sodium 136 Potassium 3.7 Chloride 106 Carbon Dioxide 23 BUN 14 Creatinine 0.48 L Glucose 158 H Calcium 8.1 L - ABG Interpretation ABG results: PT/INR, D-dimer PT 17.9 Seconds (9.4-12.1) H 09/23/18 04:42 Consult Discharge Plan - Plan Referrals: Zion Morgan [Partnered Physician] - 10/07/18 11:00 am Prescriptions: Nadolol 20 mg PO HS #30 tablet Sucralfate [Carafate] 1 gm PO QIDAC #120 tablet (2) Cirrhosis Qualifiers: Hepatic cirrhosis type: unspecified hepatic cirrhosis Ascites presence: without ascites Qualified Code(s): K74.60 - Unspecified cirrhosis of liver (3) Hepatitis C Qualifiers: Viral hepatitis chronicity: chronic Hepatic coma status: without hepatic coma Qualified Code(s): B18.2 - Chronic viral hepatitis C
[2018-09-25] MEDS: OXYCODONE Oral CONC 10 MG/0.5 ML ORAL.SYG SL PRN (02:49)
[2018-09-25] MEDS: Pantoprazole 40 MG in 0.9 % Sodium Chloride Mini Bag 100 ML IVC SCH ×3 (02:50→11:09)
[2018-09-25 04:52] LABS: Basophils % 0.5 %; Eosinophils % 1.7 %; Immature Granulocytes % 0.5 % (0-4); Red Cell Distribution Width 14.5 % (11.5-14.5)
[2018-09-25 04:54] LABS: Eosinophils # 0.1 K/mcL (0.0-0.6); Hematocrit 27.3 % (35.3-44.9); Hemoglobin 8.6 g/dL (11.5-15.4); Immature Platelets 5.4 % (1.1-6.1); Lymphocytes % 24.5 %; Mean Corpuscular HGB Conc 31.5 g/dL (31.6-35.5); Mean Corpuscular Volume 85.8 fL (83.0-100.0); Mean Platelet Volume 11.9 fL (9.4-12.4); Monocytes # 0.3 K/mcL (0.0-1.3); Monocytes % 6.5 %; Neutrophils # 2.8 K/mcL (1.6-8.9); Red Blood Count 3.18 M/mcL (3.82-4.97); Segmented Neutrophils % 66.3 %
[2018-09-25 04:58] LABS: Platelet Count 52 K/mcL (140-400)
[2018-09-25 05:13] LABS: BUN/Creatinine Ratio 18 (6-26); Blood Urea Nitrogen 11 mg/dL (8-23); Carbon Dioxide 28 mEq/L (23-29); Chloride 105 mEq/L (98-107); Glucose 140 mg/dL (70-105); Osmolality,Calculated 284 (280-300); Potassium 3.5 mEq/L (3.5-5.1); Sodium 136 mEq/L (136-145); eGFR For Non-African Americans > 60 (> 60)
[2018-09-25] MEDS: Octreotide 400 MCG in 0.9 % Sodium Chloride 100 ML IVC SCH (05:48)
[2018-09-25] MEDS: Insulin LISPRO 300 UNITS/3 ML VIAL SQ SCH ×2 (07:58→12:12)
[2018-09-25] MEDS: Sucralfate 1 GM TABLET PO SCH ×2 (08:34→12:46)
[2018-09-25 11:38] VITALS: BP 145/86
--- NOTE | 2018-09-25 14:17 | Discharge Summary ---
Orders not resulted at time of discharge: Pending orders 09/23/18 20:00 Inflammatory Bowel Disease Routine Date of Encounter: 09/25/18 Time of Encounter: 14:12 - Discharge Diagnosis (1) Portal hypertension with esophageal varices Priority: Primary Status: Acute (2) Cirrhosis Priority: Primary Status: Chronic Qualifiers: Hepatic cirrhosis type: unspecified hepatic cirrhosis Ascites presence: without ascites Qualified Code(s): K74.60 - Unspecified cirrhosis of liver (3) Hepatitis C Priority: Secondary Status: Chronic Qualifiers: Viral hepatitis chronicity: chronic Hepatic coma status: without hepatic coma Qualified Code(s): B18.2 - Chronic viral hepatitis C (4) Thrombocytopenia Priority: Secondary Status: Chronic Hospital course: Ms. Brooke is a 63 year old female Discharge discussed with: patient Time spent discussing smoking cessation with patient: 3 to 10 minutes - Time Spent with Patient Total time spent providing and/or coordinating discharge services: Greater than 30 minutes (40 minutes..) - Discharge Medications Prescriptions: Nadolol 20 mg PO HS #30 tablet Sucralfate [Carafate] 1 gm PO QIDAC #120 tablet Home Medications: Tiotropium [Spiriva] 18 mcg IH 0700 03/20/18 [History] Nicotine Patch [Nicoderm] 21 mg TD Q24H #30 patch.td24 03/23/18 [Rx] Albuterol Neb [Proventil Neb] 2.5 mg IH [id number] PRN #1 inhsol 06/07/18 [Rx] Atorvastatin [Lipitor] 10 mg PO HS #30 tablet 06/07/18 [Rx] Furosemide [Lasix] 20 mg PO DAILY #30 tablet 06/07/18 [Rx] Lactulose 10 gm PO BID #60 udc 06/07/18 [Rx] Ondansetron ODT [Zofran ODT] 4 mg SL Q6HR PRN #4 tab.rapdis 06/07/18 [Rx] Spironolactone [Aldactone] 50 mg PO DAILY #30 tablet 06/07/18 [Rx] Thiamine (B-1) [Vitamin B-1] 100 mg PO DAILY #30 tablet 06/07/18 [Rx] Omeprazole [PriLOSEC] 20 mg PO DAILY PRN 09/23/18 [History] Nadolol 20 mg PO HS #30 tablet 09/24/18 [Rx] Sucralfate [Carafate] 1 gm PO QIDAC #120 tablet 09/24/18 [Rx] Allergies/Adverse Reactions: Allergy/AdvReac Type Severity Reaction Status Date / Time aspirin Allergy Swelling Verified 09/23/18 12:40 of Lip/Tongue/Throat Date of admission: 09/23/18 17:07 Primary care physician: PCP NONE Consults: 09/23/18 05:28 Consult to Gastroenterology [CONS] Stat Consulting Provider: Gastroenterology Emily Reason for Consult: Known portal HTN, esophageal varices w/banding May 2018. Now Hemetemesis. Stable labs & vitals. Octreotide, protonix, ceftriaxone. Time Notified: 05:29 Call Completed: No Discharging clinician: Salomón Dill Anticipated date of discharge: 09/25/18 - Constitutional Vitals: Temp Pulse Resp BP Pulse Ox 98.7 F 67 17 145/86 93 09/25/18 11:32 09/25/18 11:32 09/25/18 11:32 09/25/18 11:32 09/25/18 11:32 General appearance: Present: A&O X 3, no acute distress, answers questions appropriately Exam: xx - Patient Status Disposition: Home, Self-Care Condition: Fair Functional capacity at discharge: independent ambulation Overall status at discharge: patient is progressing back to baseline - Discharge Instructions Follow Up With: Zion Morgan [Partnered Physician] - 10/07/18 11:00 am Forms: ED Satisfaction Letter Additional Instructions: FOLLOW-UP WITH DR JARAMILLO OR DR NAVA -- IN 5-10 DAYS.. - Diet and Activity Activity: resume usual activities as tolerated Diet: regular diet (grounded..) - VTE Reasons for not Prescribing Prophylaxis: Treatment not Indicated - Low risk for VTE
[2018-09-26 13:18] LABS: Saccharomyces cerevisiae IgA 13.6 Units (0.0-24.9)
== END 2018-09-25 16:30 | disposition home or self-care (01) | DRG 369 ==
LOC: EMEROOARM 04:10 → 3BNU 04:10 → SUATTDRO 17:07
PROVIDERS: ADMIT Family Medicine; ATTEND Internal Medicine